=== PATIENT | female | born 1980 | race Caucasian/White ===

== ENCOUNTER 2019-08-26 17:56 | Emergency (ER) | payer OTHER ==
[2019-08-26] MEDS ORDERED: MORPHINE SULFATE 4 MG/ML SYRINGE IV STA (18:38)
[2019-08-26] MEDS ORDERED: SODIUM CHLORIDE 0.9% 1,000 ML IV STA (18:38)
[2019-08-26] MEDS ORDERED: ONDANSETRON 4 MG/2 ML VIAL IVP STA (18:38)
--- NOTE | 2019-08-26 18:38 | ED ---
Recheck HPI - General Chief Complaint: Recheck/Abnormal Lab/Rx Stated Complaint: High BP Time Seen by Provider: 08/26/19 18:17 Source: patient, RN notes reviewed, old records reviewed Mode of arrival: ambulatory Limitations: no limitations - History of Present Illness Initial Comments: This is a 39-year-old female here for evaluation patient very anxious nervous regarding elevated blood pressure headaches concern for stroke and heart attack currently. Patient scheduled for outpatient stress test in 1 week. Otherwise patient has no significant symptoms denies neurological complaint again doesn't headache. She does suffer from headaches admitted for chest pain and elevated blood pressure home. She had surgery blood pressure medication 2 weeks ago. Patient does suffer from high blood pressure and smoking nondiabetic with recent diagnosis of elevated cholesterol MD Complaint: other (Patient did take blood pressure home and it was elevated) -: unknown Returns Today for: persistent/worsening pain related to initial visit, other (Patient very anxious regarding continued elevated blood pressures at home) Symptoms Since Prior Visit: worsening pain (And increased anxiety) Associated Symptoms: chest pain, other (Headache) - Related Data Allergies Allergy/AdvReac Type Severity Reaction Status Date / Time baclofen Allergy Rash/Hives Verified 08/26/19 18:13 doxycycline [From Vibramycin] Allergy Rash/Hives Verified 08/26/19 18:13 latex Allergy Rash/Hives Verified 08/26/19 18:13 metoclopramide [From Reglan] Allergy Rash/Hives Verified 08/26/19 18:13 Sulfa (Sulfonamide Allergy Rash/Hives Verified 08/26/19 18:13 Antibiotics) sumatriptan [From Imitrex] Allergy increases Verified 08/26/19 18:13 blood pressure pennacylin Allergy Rash/Hives Uncoded 08/26/19 18:13 Review of Systems ROS Statement: Those systems with pertinent positive or pertinent negative responses have been documented in the HPI. ROS Other: All systems not noted in ROS Statement are negative. Past Medical History Past Medical History: Fibromyalgia, Hypertension, Osteoarthritis (OA) Additional Past Medical History / Comment(s): migraines, chronic lower back pain History of Any Multi-Drug Resistant Organisms: None Reported Past Surgical History: Appendectomy, Orthopedic Surgery, Tonsillectomy Additional Past Surgical History / Comment(s): sinus surgery. , lt wrist Past Psychological History: Anxiety, Depression Smoking Status: Current every day smoker Past Alcohol Use History: None Reported Past Drug Use History: None Reported General Exam Limitations: no limitations General appearance: alert, in no apparent distress, anxious Head exam: Present: atraumatic, normocephalic, normal inspection Eye exam: Present: normal appearance, PERRL, EOMI. Absent: scleral icterus, conjunctival injection, periorbital swelling ENT exam: Present: normal exam, mucous membranes moist Neck exam: Present: normal inspection. Absent: tenderness, meningismus, lymphadenopathy Respiratory exam: Present: normal lung sounds bilaterally. Absent: respiratory distress, wheezes, rales, rhonchi, stridor Cardiovascular Exam: Present: normal rhythm, tachycardia, normal heart sounds. Absent: systolic murmur, diastolic murmur, rubs, gallop, clicks GI/Abdominal exam: Present: soft, normal bowel sounds. Absent: distended, ten derness, guarding, rebound, rigid Extremities exam: Present: normal inspection, full ROM, normal capillary refill. Absent: tenderness, pedal edema, joint swelling, calf tenderness Back exam: Present: normal inspection Neurological exam: Present: alert, oriented X3, CN II-XII intact Psychiatric exam: Present: normal affect, normal mood Skin exam: Present: warm, dry, intact, normal color. Absent: rash Course Vital Signs 08/26/19 18:07 Temperature 97.8 F Pulse Rate 101 H Respiratory 20 Rate Blood Pressure 156/94 O2 Sat by Pulse 100 Oximetry - Reevaluation(s) Reevaluation #1: 08/26/19 18:38 Medical record is reviewed Reevaluation #2: 08/26/19 20:06 Patient chest pain improved blood pressures improved anxiety is improved Medical Decision Making - Medical Decision Making 39 female to the ER for evaluation patient with us today for evaluation regards to chest pain hypertension and chest pain are improved patient will continue follow-up for outpatient tests stating, "blood pressure control and a stress test which is planned - Lab Data Result diagrams: 08/26/19 19:04 08/26/19 19:04 Lab Results 08/26/19 08/26/19 08/26/19 Range/Units 19:04 19:04 19:04 WBC 11.8 H (3.8-10.6) k/uL RBC 4.94 (3.80-5.40) m/uL Hgb 15.2 (11.4-16.0) gm/dL Hct 45.6 (34.0-46.0) % MCV 92.4 (80.0-100.0) fL MCH 30.8 (25.0-35.0) pg MCHC 33.4 (31.0-37.0) g/dL RDW 12.4 (11.5-15.5) % Plt Count 365 (150-450) k/uL Neutrophils % 61 % Lymphocytes % 32 % Monocytes % 4 % Eosinophils % 1 % Basophils % 1 % Neutrophils # 7.2 (1.3-7.7) k/uL Lymphocytes # 3.8 (1.0-4.8) k/uL Monocytes # 0.5 (0-1.0) k/uL Eosinophils # 0.1 (0-0.7) k/uL Basophils # 0.1 (0-0.2) k/uL PT (9.0-12.0) sec INR (<1.2) APTT (22.0-30.0) sec Sodium 140 (137-145) mmol/L Potassium 3.7 (3.5-5.1) mmol/L Chloride 110 H (98-107) mmol/L Carbon Dioxide 17 L (22-30) mmol/L Anion Gap 13 mmol/L BUN 8 (7-17) mg/dL Creatinine 0.73 (0.52-1.04) mg/dL Est GFR (CKD-EPI)AfAm >90 (>60 ml/min/1.73 sqM) Est GFR (CKD-EPI)NonAf >90 (>60 ml/min/1.73 sqM) Glucose 86 (74-99) mg/dL Calcium 9.8 (8.4-10.2) mg/dL Phosphorus 3.6 (2.5-4.5) mg/dL Magnesium 1.8 (1.6-2.3) mg/dL Total Bilirubin 0.4 (0.2-1.3) mg/dL AST 24 (14-36) U/L ALT 22 (4-34) U/L Alkaline Phosphatase 85 (38-126) U/L Creatine Kinase 51 (30-135) U/L Troponin I (0.000-0.034) ng/mL NT-Pro-B Natriuret Pep 44 pg/mL Total Protein 8.3 H (6.3-8.2) g/dL Albumin 4.9 (3.5-5.0) g/dL Urine Color Urine Appearance (Clear) Urine pH (5.0-8.0) Ur Specific [place] (1.001-1.035) Urine Protein (Negative) Urine Glucose (UA) (Negative) Urine Ketones (Negative) Urine Blood (Negative) Urine Nitrite (Negative) Urine Bilirubin (Negative) Urine Urobilinogen (<2.0) mg/dL Ur Leukocyte Esterase (Negative) Urine RBC (0-5) /hpf Urine WBC (0-5) /hpf Ur Squamous Epith Cells (0-4) /hpf Amorphous Sediment (None) /hpf Urine Bacteria (None) /hpf Urine Mucus (None) /hpf 08/26/19 08/26/19 08/26/19 Range/Units 19:04 19:04 19:04 WBC (3.8-10.6) k/uL RBC (3.80-5.40) m/uL Hgb (11.4-16.0) gm/dL Hct (34.0-46.0) % MCV (80.0-100.0) fL MCH (25.0-35.0) pg MCHC (31.0-37.0) g/dL RDW (11.5-15.5) % Plt Count (150-450) k/uL Neutrophils % % Lymphocytes % % Monocytes % % Eosinophils % % Basophils % % Neutrophils # (1.3-7.7) k/uL Lymphocytes # (1.0-4.8) k/uL Monocytes # (0-1.0) k/uL Eosinophils # (0-0.7) k/uL Basophils # (0-0.2) k/uL PT 10.3 (9.0-12.0) sec INR 1.0 (<1.2) APTT 22.6 (22.0-30.0) sec Sodium (137-145) mmol/L Potassium (3.5-5.1) mmol/L Chloride (98-107) mmol/L Carbon Dioxide (22-30) mmol/L Anion Gap mmol/L BUN (7-17) mg/dL Creatinine (0.52-1.04) mg/dL Est GFR (CKD-EPI)AfAm (>60 ml/min/1.73 sqM) Est GFR (CKD-EPI)NonAf (>60 ml/min/1.73 sqM) Glucose (74-99) mg/dL Calcium (8.4-10.2) mg/dL Phosphorus (2.5-4.5) mg/dL Magnesium (1.6-2.3) mg/dL Total Bilirubin (0.2-1.3) mg/dL AST (14-36) U/L ALT (4-34) U/L Alkaline Phosphatase (38-126) U/L Creatine Kinase (30-135) U/L Troponin I <0.012 (0.000-0.034) ng/mL NT-Pro-B Natriuret Pep pg/mL Total Protein (6.3-8.2) g/dL Albumin (3.5-5.0) g/dL Urine Color Light Yellow Urine Appearance Clear (Clear) Urine pH 5.5 (5.0-8.0) Ur Specific [place] 1.005 (1.001-1.035) Urine Protein Negative (Negative) Urine Glucose (UA) Negative (Negative) Urine Ketones Negative (Negative) Urine Blood Trace H (Negative) Urine Nitrite Negative (Negative) Urine Bilirubin Negative (Negative) Urine Urobilinogen <2.0 (<2.0) mg/dL Ur Leukocyte Esterase Negative (Negative) Urine RBC 2 (0-5) /hpf Urine WBC 1 (0-5) /hpf Ur Squamous Epith Cells 1 (0-4) /hpf Amorphous Sediment Rare H (None) /hpf Urine Bacteria Moderate H (None) /hpf Urine Mucus Rare H (None) /hpf - EKG Data -: EKG Interpreted by Me (EKG shows sinus rhythm rate of 70, VA 112, QRS 82, QTC 436) - Radiology Data Radiology results: report reviewed (CT brain and chest x-ray is negative for acute disease), image reviewed Disposition Clinical Impression: Chest pain, Atypical chest pain, Headache, Hypertension Disposition: HOME SELF-CARE Condition: Good Instructions (If sedation given, give patient instructions): Chest Pain (ED), Hypertension (ED) Is patient prescribed a controlled substance at d/c from ED?: No Referrals: Bhanu Levy MD [Primary Care Provider] - 1-2 days
[2019-08-26 19:16] LABS: Basophils # (A) 0.1 k/uL (0-0.2); Basophils % (A) 1 %; Eosinophils # (A) 0.1 k/uL (0-0.7); Eosinophils % (A) 1 %; HCT 45.6 % (34.0-46.0); HGB 15.2 gm/dL (11.4-16.0); Lymphocytes # (A) 3.8 k/uL (1.0-4.8); Lymphocytes % (A) 32 %; MCH 30.8 pg (25.0-35.0); MCHC 33.4 g/dL (31.0-37.0); MCV 92.4 fL (80.0-100.0); Mean Platelet Volume 7.3; Monocytes # (A) 0.5 k/uL (0-1.0); Monocytes % (A) 4 %; Neutrophils # (A) 7.2 k/uL (1.3-7.7); Neutrophils % (A) 61 %; Platelet Count 365 k/uL (150-450); RBC 4.94 m/uL (3.80-5.40); RDW 12.4 % (11.5-15.5); WBC 11.8 k/uL (3.8-10.6)
[2019-08-26 19:23] LABS: ALT 22 U/L (4-34); AST 24 U/L (14-36); African American GFR (CKD) >90 (>60 ml/min/1.73 sqM); Albumin 4.9 g/dL (3.5-5.0); Alkaline Phosphatase 85 U/L (38-126); Anion Gap 13 mmol/L; Blood Urea Nitrogen 8 mg/dL (7-17); Calcium 9.8 mg/dL (8.4-10.2); Carbon Dioxide 17 mmol/L (22-30); Chloride 110 mmol/L (98-107); Creatine Kinase 51 U/L (30-135); Glucose 86 mg/dL (74-99); Magnesium 1.8 mg/dL (1.6-2.3); Non-African American GFR(CKD) >90 (>60 ml/min/1.73 sqM); Phosphorus 3.6 mg/dL (2.5-4.5); Potassium 3.7 mmol/L (3.5-5.1); Sodium 140 mmol/L (137-145); Total Bilirubin 0.4 mg/dL (0.2-1.3); Total Protein 8.3 g/dL (6.3-8.2)
[2019-08-26 19:26] LABS: Partial Thromboplastin Time 22.6 sec (22.0-30.0); Prothrombin Time 10.3 sec (9.0-12.0)
[2019-08-26 19:27] LABS: Amorphous Sediment,Urine Rare /hpf; Appearance,Urine Clear (Clear); Bacteria,Urine Moderate /hpf; Bilirubin,Urine Negative (Negative); Blood,Urine Trace (Negative); Color,Urine Light Yellow; Glucose,Urine (UA) Negative (Negative); Ketones,Urine Negative (Negative); Leukocyte Esterase,Urine Negative (Negative); Mucus,Urine Rare /hpf; Nitrite,Urine Negative (Negative); PH, Urine 5.5 (5.0-8.0); Protein,Urine Negative (Negative); RBC,Urine 2 /hpf (0-5); Specific Gravity,Urine 1.005 (1.001-1.035); Squamous Epithelial Cell,Urine 1 /hpf (0-4); Urobilinogen,Urine <2.0 mg/dL (<2.0); WBC,Urine 1 /hpf (0-5)
--- NOTE | 2019-08-26 19:28 | CT ---
EXAMINATION TYPE: CT brain wo con DATE OF EXAM: 08/26/2019 COMPARISON: None HISTORY: headache, htn CT DLP: 1099.4 mGycm Automated exposure control for dose reduction was used. Ventricles have normal size. There is no mass effect nor midline shift. There is no sign of intracran ial hemorrhage. Calvarium is intact. IMPRESSION: Negative head CT scan.
--- NOTE | 2019-08-26 19:29 | XR ---
EXAMINATION TYPE: XR chest 2V DATE OF EXAM: 08/26/2019 COMPARISON: NONE HISTORY: Weakness TECHNIQUE: 2 views FINDINGS: Heart and mediastinum are normal. Lungs are clear. Diaphragm is normal. Bony thorax appears normal. IMPRESSION: Normal chest. Normal heart.
[2019-08-26 20:25] VITALS: BP 121/80; PULSE 77; RESP 18; TEMP 98.2
== END 2019-08-26 20:24 | disposition home or self-care (01) ==
LOC: EC 17:56
DX: I10 Essential (primary) hypertension (principal); R07.89 Other chest pain; R51 Headache; F41.9 Anxiety disorder, unspecified; E78.00 Pure hypercholesterolemia, unspecified; F17.200 Nicotine dependence, unspecified, uncomplicated; Z91.040 Latex allergy status; Z88.2 Allergy status to sulfonamides; Z88.8 Allergy status to other drugs, medicaments and biological substances; Z88.1 Allergy status to other antibiotic agents; Z88.0 Allergy status to penicillin
CPT/HCPCS: 36415; 93005; 83880; 80053; 82550; 83735; 84100; 84484; 85025; 85610; 85730; 81001; 71046; 70450; 99284; 96374; 96375; 96361; J2270; J2405

== ENCOUNTER 2019-09-29 19:47 | Emergency (ER) | payer OTHER ==
[2019-09-29 19:53] VITALS: TEMP 98.1
[2019-09-29] MEDS ORDERED: KETOROLAC 30 MG/ML 1 ML VIAL IVP STA (21:11)
[2019-09-29] MEDS ORDERED: PHENAZOPYRIDINE 200 MG TAB PO STA (21:11)
[2019-09-29] MEDS ORDERED: SODIUM CHLORIDE 0.9% 1,000 ML IV STA (21:11)
[2019-09-29 21:46] LABS: Basophils # (A) 0.1 k/uL (0-0.2); Basophils % (A) 1 %; Eosinophils # (A) 0.1 k/uL (0-0.7); Eosinophils % (A) 1 %; HCT 40.2 % (34.0-46.0); HGB 13.3 gm/dL (11.4-16.0); Lymphocytes # (A) 3.3 k/uL (1.0-4.8); Lymphocytes % (A) 29 %; MCH 30.7 pg (25.0-35.0); MCHC 33.1 g/dL (31.0-37.0); MCV 92.6 fL (80.0-100.0); Mean Platelet Volume 7.5; Monocytes # (A) 0.6 k/uL (0-1.0); Monocytes % (A) 5 %; Neutrophils % (A) 62 %; Platelet Count 323 k/uL (150-450); RBC 4.34 m/uL (3.80-5.40); RDW 12.6 % (11.5-15.5); WBC 11.3 k/uL (3.8-10.6)
[2019-09-29 21:48] LABS: Appearance,Urine Clear (Clear); Bacteria,Urine Occasional /hpf; Bilirubin,Urine Negative (Negative); Blood,Urine Small (Negative); Color,Urine Yellow; Glucose,Urine (UA) Negative (Negative); Hyaline Casts,Urine 1 /lpf (0-2); Ketones,Urine Negative (Negative); Leukocyte Esterase,Urine Negative (Negative); Nitrite,Urine Negative (Negative); Protein,Urine Negative (Negative); RBC,Urine 3 /hpf (0-5); Specific Gravity,Urine 1.015 (1.001-1.035); Urobilinogen,Urine <2.0 mg/dL (<2.0); WBC,Urine 1 /hpf (0-5)
--- NOTE | 2019-09-29 21:53 | XR ---
EXAMINATION TYPE: XR KUB DATE OF EXAM: 09/29/2019 9:47 PM CLINICAL HISTORY: Right flank pain. TECHNIQUE: Two Upright KUB images of the abdomen are obtained. COMPARISON: None. FINDINGS: Scattered gas is seen in non-distended stomach and small bowel loops. Gas and fecal materia l is seen in non-distended colon. There is no visceromegaly, pneumoperitoneum, or abnormal calcificat ion appreciated. The lung bases are clear and the osseous structures are intact. IMPRESSION: Overall nonobstructive bowel gas pattern. No definitive nephrolithiasis.
[2019-09-29 21:59] LABS: ALT 14 U/L (4-34); AST 19 U/L (14-36); African American GFR (CKD) >90 (>60 ml/min/1.73 sqM); Albumin 4.1 g/dL (3.5-5.0); Alkaline Phosphatase 67 U/L (38-126); Amylase 63 U/L (30-110); Anion Gap 7 mmol/L; Blood Urea Nitrogen 14 mg/dL (7-17); Calcium 8.7 mg/dL (8.4-10.2); Carbon Dioxide 22 mmol/L (22-30); Chloride 109 mmol/L (98-107); Glucose 86 mg/dL (74-99); Non-African American GFR(CKD) >90 (>60 ml/min/1.73 sqM); Potassium 3.8 mmol/L (3.5-5.1); Sodium 138 mmol/L (137-145); Total Bilirubin 0.3 mg/dL (0.2-1.3); Total Protein 7.1 g/dL (6.3-8.2)
[2019-09-29] MEDS ORDERED: HYDROmorphone 0.5 MG/0.5 ML SYRINGE IVP STA (22:22)
[2019-09-29] MEDS ORDERED: ONDANSETRON 4 MG/2 ML VIAL IVP STA (22:22)
--- NOTE | 2019-09-29 23:09 | CT ---
EXAMINATION TYPE: CT abdomen pelvis wo con DATE OF EXAM: 09/29/2019 COMPARISON: None HISTORY: flank and pelvic pain CT DLP: 494 mGycm Automated exposure control for dose reduction was used. Multiple axial sections were obtained from the diaphragm to the floor the pelvis without contrast. Lung bases are clear. There is no pleural effusion. Heart size is normal. There is no pericardial eff usion. Stomach is intact. Liver spleen pancreas gallbladder appear normal. Bile ducts are not dilated. There is no adrenal mass. Kidneys have normal size. There is no evidence of a renal mass. I see no re nal calculus. There is minimal fullness of the right renal pelvis compared to the left. I see no sign of a ureteral calculus. Bladder distends smoothly. There is no inguinal hernia. There is no free flu id in the pelvis. There is no mesenteric edema. There is no ascites or free air. There are apparent multiple surgical c lips in the right lower quadrant from appendectomy. Appendix not seen. There is no evidence of a bowel obstruction. Uterus is anteverted. Lumbar vertebra have normal alignm ent. Posterior elements are intact. There is no compression fracture. Bony pelvis is intact. IMPRESSION: Right renal pelvis slightly larger than the left. No convincing evidence of a ureteral obstruction. N o renal calculus or ureteral identified. No sign of acute abdomen and pelvis.
--- NOTE | 2019-09-29 23:15 | ED ---
Abdominal Pain HPI - General Chief Complaint: Abdominal Pain Stated Complaint: pelvic pain Time Seen by Provider: 09/29/19 20:50 Source: patient Mode of arrival: ambulatory Limitations: no limitations - History of Present Illness Initial Comments: 39-year-old female patient presents to the emergency department today for evaluation of right flank pain and suprapubic discomfort. Patient states symptoms have been present for the last couple of days. Patient states she feels like razor blades or stabbing her in her left pelvic region. She denies any abnormal vaginal bleeding or discharge. Denies any hematuria, dysuria, urinary frequency, urinary urgency. Denies fever or chills. Patient states that she has been told she had kidney stones in the past but never had any imaging to confirm. Patient denies taking any medication for her symptoms to day. Denies any constipation or diarrhea. Patient denies concern for sexually transmitted infections. Patient denies any recent rash, shortness breath, chest pain, numbness, tingling, dizziness, weakness, headache, visual changes, or any other complaints. - Related Data Previous Rx's Medication Instructions Recorded Ibuprofen [Motrin] 600 mg PO Q8HR PRN #30 tab 09/29/19 Tamsulosin HCl [Flomax] 0.4 mg PO DAILY #7 cap 09/29/19 Allergies Allergy/AdvReac Type Severity Reaction Status Date / Time baclofen Allergy Rash/Hives Verified 09/29/19 19:55 clarithromycin [From Biaxin] Allergy Rash/Hives Verified 09/29/19 19:55 doxycycline [From Vibramycin] Allergy Rash/Hives Verified 09/29/19 19:55 latex Allergy Rash/Hives Verified 09/29/19 19:55 levofloxacin [From Levaquin] Allergy Rash/Hives Verified 09/29/19 19:55 metoclopramide [From Reglan] Allergy Rash/Hives Verified 09/29/19 19:55 nalbuphine [From Nubain] Allergy Unknown Verified 09/29/19 19:55 Penicillins Allergy Rash/Hives Verified 09/29/19 19:55 Sulfa (Sulfonamide Allergy Rash/Hives Verified 09/29/19 19:55 Antibiotics) sumatriptan [From Imitrex] Allergy increases Verified 09/29/19 19:55 blood pressure Review of Systems ROS Statement: Those systems with pertinent positive or pertinent negative responses have been documented in the HPI. ROS Other: All systems not noted in ROS Statement are negative. Past Medical History Past Medical History: Fibromyalgia, Hypertension, Osteoarthritis (OA) Additional Past Medical History / Comment(s): migraines, chronic lower back pain History of Any Multi-Drug Resistant Organisms: None Reported Past Surgical History: Appendectomy, Orthopedic Surgery, Tonsillectomy Additional Past Surgical History / Comment(s): sinus surgery, lt wrist, vulvadectomy Past Psychological History: Anxiety, Depression Smoking Status: Current every day smoker Past Alcohol Use History: None Reported Past Drug Use History: None Reported General Exam Limitations: no limitations General appearance: alert, in no apparent distress, other (This is a well- developed, well-nourished adult female patient in no acute distress. Vital signs upon presentation are temperature 98.1F, pulse 92, respirations 18, blood pressure 132/84, pulse ox 98% on room air.) Eye exam: Present: normal appearance, PERRL, EOMI. Absent: scleral icterus, conjunctival injection, periorbital swelling ENT exam: Present: normal exam, normal oropharynx, mucous membranes moist Respiratory exam: Present: normal lung sounds bilaterally. Absent: respiratory distress, wheezes, rales, rhonchi, stridor Cardiovascular Exam: Present: regular rate, normal rhythm, normal heart sounds. Absent: systolic murmur, diastolic murmur, rubs, gallop, clicks GI/Abdominal exam: Present: soft, tenderness (Suprapubic), normal bowel sounds. Absent: distended, guarding, rebound, rigid Neurological exam: Present: alert, oriented X3, CN II-XII intact Psychiatric exam: Present: normal affect, normal mood Skin exam: Present: warm, dry, intact, normal color. Absent: rash Course Vital Signs 09/29/19 09/29/19 19:50 23:55 Temperature 98.1 F 98.1 F Pulse Rate 92 62 Respiratory 18 16 Rate Blood Pressure 132/84 120/75 O2 Sat by Pulse 98 96 Oximetry Medical Decision Making - Medical Decision Making 39-year-old female patient presented to the emergency department today for evaluation of right flank pain and suprapubic discomfort. Physical examination did reveal right CVA tenderness and suprapubic tenderness. Labs reviewed and d id reveal small amount of blood in the urine. CT abdomen and pelvis was obtained without contrast. There was evidence or fullness of the right renal pelvis but no sign of obstructing stone. I did discuss findings and results with the patient. Symptoms could be related to recently passed stone. There is no sign of urinary tract infection. She denies concerns for sexually transmitted infections and declines testing. She'll be discharged to follow-up with her primary care physician for recheck in 1-2 days. We will do Flomax and ibuprofen. Return parameters were discussed in detail. She verbalizes understanding and agrees with this plan. - Lab Data Result diagrams: 09/29/19 21:34 09/29/19 21:34 Lab Results 09/29/19 09/29/19 09/29/19 Range/Units 21:34 21:34 21:34 WBC 11.3 H (3.8-10.6) k/uL RBC 4.34 (3.80-5.40) m/uL Hgb 13.3 (11.4-16.0) gm/dL Hct 40.2 (34.0-46.0) % MCV 92.6 (80.0-100.0) fL MCH 30.7 (25.0-35.0) pg MCHC 33.1 (31.0-37.0) g/dL RDW 12.6 (11.5-15.5) % Plt Count 323 (150-450) k/uL Neutrophils % 62 % Lymphocytes % 29 % Monocytes % 5 % Eosinophils % 1 % Basophils % 1 % Neutrophils # 7.0 (1.3-7.7) k/uL Lymphocytes # 3.3 (1.0-4.8) k/uL Monocytes # 0.6 (0-1.0) k/uL Eosinophils # 0.1 (0-0.7) k/uL Basophils # 0.1 (0-0.2) k/uL Sodium 138 (137-145) mmol/L Potassium 3.8 (3.5-5.1) mmol/L Chloride 109 H (98-107) mmol/L Carbon Dioxide 22 (22-30) mmol/L Anion Gap 7 mmol/L BUN 14 (7-17) mg/dL Creatinine 0.71 (0.52-1.04) mg/dL Est GFR (CKD-EPI)AfAm >90 (>60 ml/min/1.73 sqM) Est GFR (CKD-EPI)NonAf >90 (>60 ml/min/1.73 sqM) Glucose 86 (74-99) mg/dL Calcium 8.7 (8.4-10.2) mg/dL Total Bilirubin 0.3 (0.2-1.3) mg/dL AST 19 (14-36) U/L ALT 14 (4-34) U/L Alkaline Phosphatase 67 (38-126) U/L Total Protein 7.1 (6.3-8.2) g/dL Albumin 4.1 (3.5-5.0) g/dL Amylase 63 (30-110) U/L Lipase 232 (23-300) U/L Urine Color Yellow Urine Appearance Clear (Clear) Urine pH 6.0 (5.0-8.0) Ur Specific [place] 1.015 (1.001-1.035) Urine Protein Negative (Negative) Urine Glucose (UA) Negative (Negative) Urine Ketones Negative (Negative) Urine Blood Small H (Negative) Urine Nitrite Negative (Negative) Urine Bilirubin Negative (Negative) Urine Urobilinogen <2.0 (<2.0) mg/dL Ur Leukocyte Esterase Negative (Negative) Urine RBC 3 (0-5) /hpf Urine WBC 1 (0-5) /hpf Urine Bacteria Occasional H (None) /hpf Hyaline Casts 1 (0-2) /lpf - Radiology Data Radiology results: report reviewed, image reviewed CT abdomen and pelvis without contrast was obtained. Report was reviewed in its entirety. Impression by Dr. Bruce shows right renal pelvis slightly larger than the left. No convincing evidence of ureteral instruction. No renal calculus or ureteral identified. No sign of acute abdomen and pelvis. Disposition Clinical Impression: Flank pain Disposition: HOME SELF-CARE Condition: Good Instructions (If sedation given, give patient instructions): Flank Pain (ED) Additional Instructions: Increase fluids. Rest. Take medications as directed. Follow-up with the primary care physician for recheck in 1-2 days. Return to the emergency departm ent immediately for any new, worsening, or concerning symptoms. Prescriptions: Tamsulosin HCl [Flomax] 0.4 mg PO DAILY #7 cap Ibuprofen [Motrin] 600 mg PO Q8HR PRN #30 tab PRN Reason: Pain Is patient prescribed a controlled substance at d/c from ED?: No Referrals: Bhanu Levy MD [Primary Care Provider] - 1-2 days Time of Disposition: 23:14
[2019-09-29] MEDS ORDERED: HYDROmorphone 1 MG/ML 1 ML SYRINGE IVP STA (23:20)
[2019-09-29 23:56] VITALS: BP 120/75; PULSE 62; RESP 16
== END 2019-09-29 23:56 | disposition home or self-care (01) ==
LOC: EC 19:47
DX: R10.2 Pelvic and perineal pain (principal); R31.9 Hematuria, unspecified; F17.200 Nicotine dependence, unspecified, uncomplicated; Z88.0 Allergy status to penicillin; Z88.1 Allergy status to other antibiotic agents; Z88.2 Allergy status to sulfonamides; Z88.5 Allergy status to narcotic agent; Z88.8 Allergy status to other drugs, medicaments and biological substances; Z91.040 Latex allergy status; Z90.49 Acquired absence of other specified parts of digestive tract; Z53.29 Procedure and treatment not carried out because of patient's decision for other reasons
CPT/HCPCS: 36415; 80053; 82150; 83690; 85025; 81001; 74018; 74176; 99284; 96374; 96375 ×2; 96376; 96361 ×2; J2405; J1885; J1170 ×2

== ENCOUNTER → 2019-10-03 | Outpatient (CLI) | payer OTHER ==
--- NOTE | 2019-10-03 16:42 | XR ---
Lumbar spine HISTORY: Back pain 3 views of the lumbar spine Lumbar vertebral bodies show preserved height, alignment, and bone mineralization. Disc spaces are ma intained. No paraspinal mass. Atherosclerotic vascular calcification present within the distribution of the aorta. IMPRESSION: No abnormality is evident.
--- NOTE | 2019-10-03 16:44 | XR ---
Cervical spine HISTORY: Pain 5 views of the cervical spine There is no evident foraminal encroachment. Rudimentary cervical ribs are present. Cervical vertebral bodies show preserved height, alignment, and bone mineralization. Mild spondylosis present at C6-7 w ith associated loss of disc height. Prevertebral soft tissues are normal. IMPRESSION: Mild degenerative disc disease.
== END | disposition home or self-care (01) ==
LOC: RAD 15:12
PROVIDERS: ATTEND Internal Medicine
DX: M50.30 Other cervical disc degeneration, unspecified cervical region (principal); M54.5 Low back pain
CPT/HCPCS: 72050; 72100

== ENCOUNTER → 2020-01-28 | Outpatient (CLI) | payer OTHER ==
[2020-01-28 15:32] LABS: Basophils # (A) 0.1 k/uL (0-0.2); Basophils % (A) 1 %; Eosinophils # (A) 0.1 k/uL (0-0.7); Eosinophils % (A) 1 %; HCT 47.6 % (34.0-46.0); HGB 15.1 gm/dL (11.4-16.0); Lymphocytes # (A) 2.9 k/uL (1.0-4.8); Lymphocytes % (A) 31 %; MCHC 31.8 g/dL (31.0-37.0); MCV 94.6 fL (80.0-100.0); Monocytes # (A) 0.7 k/uL (0-1.0); Monocytes % (A) 8 %; Neutrophils # (A) 5.3 k/uL (1.3-7.7); Neutrophils % (A) 58 %; Platelet Count 336 k/uL (150-450); RBC 5.04 m/uL (3.80-5.40); RDW 12.8 % (11.5-15.5); WBC 9.2 k/uL (3.8-10.6)
== END | disposition home or self-care (01) ==
LOC: LABPAT 13:57
PROVIDERS: ATTEND Obstetrics & Gynecology
DX: Z01.818 Encounter for other preprocedural examination (principal)
CPT/HCPCS: 36415; 85025

== ENCOUNTER 2020-01-30 06:18 | Day surgery (SDC) | payer OTHER ==
[2020-01-27 14:45] VITALS: BMI 29.2
--- NOTE | 2020-01-29 17:06 | P.HPOB ---
History of Present Illness H&P Date: 01/29/20 Chief Complaint: Family planning Kyra is a 40-year-old female who has completed her family planning and desires permanent sterilization. Risks/benefits/alternatives to a laparoscopic tubal occlusion were reviewed with the patient in detail and all questions were answered for her prior to proceeding to the operating room. Risks did include but were not limited to damage to bladder, bowel, vascular injuries, nerve injuries, bleeding, and infection. She would like no clips therefore we are using the Kleppinger for her tubal ligation. All the questions are answered at this time. Past Medical History Past Medical History: Fibromyalgia, Hypertension, Osteoarthritis (OA) Additional Past Medical History / Comment(s): migraines, chronic lower back pain History of Any Multi-Drug Resistant Organisms: None Reported Past Surgical History: Appendectomy, Orthopedic Surgery, Tonsillectomy Additional Past Surgical History / Comment(s): sinus surgery, lt wrist SX, vulvadectomy Past Anesthesia/Blood Transfusion Reactions: No Reported Reaction Smoking Status: Current every day smoker - Past Family History Mother Family Medical History: No Reported History Medications and Allergies Home Medications Medication Instructions Recorded Confirmed Type Ibuprofen [Motrin] 600 mg PO Q8HR PRN #30 tab 09/29/19 01/27/20 Rx Cholecalciferol (Vitamin D3) 10,000 unit PO DAILY 01/27/20 01/27/20 History [Vitamin D3] Losartan Potassium 100 mg PO HS 01/27/20 01/27/20 History Verapamil HCl [Verapamil ER] 180 mg PO DAILY 01/27/20 01/27/20 History tiZANidine [Zanaflex] 4 mg PO TID 01/27/20 01/27/20 History Allergies Allergy/AdvReac Type Severity Reaction Status Date / Time baclofen Allergy Rash/Hives Verified 01/27/20 14:31 clarithromycin [From Biaxin] Allergy Rash/Hives Verified 01/27/20 14:31 doxycycline [From Vibramycin] Allergy Rash/Hives Verified 01/27/20 14:31 latex Allergy Rash/Hives Verified 01/27/20 14:31 levofloxacin [From Levaquin] Allergy Rash/Hives Verified 01/27/20 14:31 metoclopramide [From Reglan] Allergy Rash/Hives Verified 01/27/20 14:31 nalbuphine [From Nubain] Allergy Unknown Verified 01/27/20 14:31 Penicillins Allergy Rash/Hives Verified 01/27/20 14:31 Sulfa (Sulfonamide Allergy Rash/Hives Verified 01/27/20 14:31 Antibiotics) sumatriptan [From Imitrex] Allergy increases Verified 01/27/20 14:31 blood pressure Exam Osteopathic Statement: *. No significant issues noted on an osteopathic structural exam other than those noted in the History and Physical/Consult. - OBG Physical Exam Breast: both: normal (no masses) Abdomen: bowel sounds normal, no diffuse tenderness, no bruit present, no guarding noted, no hepatomegaly, no splenomegaly, no mass Vulva: both: normal Vagina: normal moisture, no discharge Cervix: no lesion, no discharge Uterus: normal size, normal contour Adnexa: both: normal Anus/Rectum: normal perianal skin, no rectal mass, no hemorrhoids, heme negative
[~2020-01-30 06:18] MED LIST: DEXAMETHASONE SOD PHOSPHATE 10 MG/ML 1 ML VIAL IV ONE; LACTATED RINGERS 1,000 ML IV SCH; LIDOCAINE 1% (10MG/ML) FOR IV START INTRADERMA PRN; MIDAZOLAM 2 MG/2 ML VIAL IV PRN; ONDANSETRON 4 MG/2 ML VIAL IVP ONE; Pre Op ABX Message 1 EACH MISC MISCELLANE ONE
[2020-01-30] MEDS ORDERED: ONDANSETRON 4 MG/2 ML VIAL ONE (06:42)
[2020-01-30] MEDS ORDERED: NEOSTIGMINE 1 MG/ML 10 ML VIAL ONE (07:31)
[2020-01-30] MEDS ORDERED: PROPOFOL 10 MG/ML 20 ML VIAL IV ONE (07:31)
[2020-01-30] MEDS ORDERED: ROCURONIUM BROMIDE 10 MG/ML 5 ML VIAL IV ONE (07:31)
[2020-01-30] MEDS ORDERED: KETOROLAC 30 MG/ML 1 ML VIAL ONE (07:31)
[2020-01-30] MEDS ORDERED: LIDOCAINE 1% INJ 10MG/ML (20 ML MDV) ONE (07:31)
[2020-01-30] MEDS ORDERED: fentaNYL (PF) 50 MCG/ML 2 ML AMP ONE (07:31)
[2020-01-30] MEDS ORDERED: GLYCOPYRROLATE 0.2 MG/ML 2 ML VIAL ONE (07:31)
[2020-01-30] MEDS ORDERED: SUCCINYLCHOLINE CHLORIDE 100 MG/5 ML SYR IV ONE (07:31)
[2020-01-30] MEDS ORDERED: MIDAZOLAM 2 MG/2 ML VIAL ONE (07:31)
[2020-01-30] MEDS ORDERED: BUPIVACAINE (PF) 0.25% 30 ML VIAL SQ ONE (07:56)
--- NOTE | 2020-01-30 08:12 | P.OP ---
Date of Procedure: 01/30/20 Preoperative Diagnosis: Family planning Postoperative Diagnosis: Same Procedure(s) Performed: Laparoscopic tubal occlusion with Kleppinger Anesthesia: DAMARIS Surgeon: Misha Cummings Estimated Blood Loss (ml): 5 IV fluids (ml): 600 Urine output (ml): 75 Pathology: none sent Condition: stable Disposition: same day Operative Findings: Normal pelvic anatomy. Small lesion in right labia had resolved and no biopsy was performed Description of Procedure: Patient was taken to the operating suite where general anesthetic was found be adequate. She was prepped and draped in normal sterile fashion and placed in dorsal lithotomy position. Initially a speculum was inserted the vagina and anterior lip of the cervix was identified and grasped with single-tooth tenaculum. Uterus was then sounded to 9 cm and a uterine manipulator was inserted without difficulty. Other incidents were then removed and a straight catheter was used to drain the bladder urine. This was then removed and attention was turned to the abdominal portion procedure where Wells were changed and then 2 mL a course of Marcaine was injected periumbilically. Through this injected anesthetic a 5 mm skin incision was made and through this incision, under direct visualization, the camera and sleeve were inserted. Once peritoneal placement was assured gas was allowed to fully insufflate the abdomen and patient's placement steep Trendelenburg position. A second 8 mm skin incision was then made 3 cm above the pubic symphysis in the midline. Through this incision a second port and sleeve were inserted again under direct visualization. Once this was accomplished observations pelvis were noted. Uterus was then elevated and Kleppinger was used to first grasp the right fallopian tube and it was cauterized in [address] approximately 1/2 inch apart with the electricity applied until change of tone on the device. In a similar fashion the left tube was occluded. Once this was completed with no bleeding noted in the mesosalpinx incidents removed and gas allowed to expel from the abdomen. 5 deep breaths were provided during this process area instruments were then removed and trochars removed and then 4-0 Vicryl used to close incision subcuticularly. The remaining Marcaine was then injected around these incisions and instrument from was removed from the vagina sponge, lap, needle counts were all correct 2. Patient was then taken to the recovery room in stable and satisfactory condition. Plan - Discharge Summary Discharge Rx Participant: No New Discharge Prescriptions: New Ibuprofen [Motrin] 600 mg PO Q6HR PRN #30 tab PRN Reason: Pain HYDROcodone/APAP 5-325MG [[place] 5-325] 1 tab PO Q4HR PRN #30 tab PRN Reason: Pain No Action Ibuprofen [Motrin] 600 mg PO Q8HR PRN #30 tab PRN Reason: Pain tiZANidine [Zanaflex] 4 mg PO TID Verapamil HCl [Verapamil ER] 180 mg PO DAILY Losartan Potassium 100 mg PO HS Cholecalciferol (Vitamin D3) [Vitamin D3] 10,000 unit PO DAILY Discharge Medication List Ibuprofen [Motrin] 600 mg PO Q8HR PRN #30 tab 09/29/19 [Rx] Cholecalciferol (Vitamin D3) [Vitamin D3] 10,000 unit PO DAILY 01/27/20 [History] Losartan Potassium 100 mg PO HS 01/27/20 [History] Verapamil HCl [Verapamil ER] 180 mg PO DAILY 01/27/20 [History] tiZANidine [Zanaflex] 4 mg PO TID 01/27/20 [History] HYDROcodone/APAP 5-325MG [[place] 5-325] 1 tab PO Q4HR PRN #30 tab 01/30/20 [Rx] Ibuprofen [Motrin] 600 mg PO Q6HR PRN #30 tab 01/30/20 [Rx] Follow up Appointment(s)/Referral(s): Misha Cummings DO [Doctor of Osteopathic Medicine] - 1 Week Activity/Diet/Wound Care/Special Instructions: No heavy lifting, limit stairs and driving, pelvic rest. If any high temperatures, heavy bleeding, or severe pain call my office
[2020-01-30] MEDS: HYDROmorphone 0.5 MG/0.5 ML SYRINGE IVP PRN ×4 (08:21→08:45)
[2020-01-30 08:52] VITALS: RESP 16
[2020-01-30] MEDS: fentaNYL (PF) 50 MCG/ML 2 ML AMP IV PRN ×3 (08:52→09:08)
[2020-01-30 10:38] VITALS: BP 109/73; PULSE 61; TEMP 97.7
== END 2020-01-30 10:35 | disposition home or self-care (01) ==
LOC: OR 06:18
PROVIDERS: ATTEND Obstetrics & Gynecology
DX: Z30.2 Encounter for sterilization (principal); N90.89 Other specified noninflammatory disorders of vulva and perineum; I10 Essential (primary) hypertension; M79.7 Fibromyalgia; M19.90 Unspecified osteoarthritis, unspecified site; G43.909 Migraine, unspecified, not intractable, without status migrainosus; F17.200 Nicotine dependence, unspecified, uncomplicated; Z90.49 Acquired absence of other specified parts of digestive tract; Z90.89 Acquired absence of other organs; Z98.890 Other specified postprocedural states; Z79.1 Long term (current) use of non-steroidal anti-inflammatories (NSAID); Z79.899 Other long term (current) drug therapy; Z88.6 Allergy status to analgesic agent; Z88.1 Allergy status to other antibiotic agents; Z91.040 Latex allergy status; Z88.0 Allergy status to penicillin; Z88.2 Allergy status to sulfonamides; Z88.8 Allergy status to other drugs, medicaments and biological substances; Z88.5 Allergy status to narcotic agent; Z79.891 Long term (current) use of opiate analgesic
CPT/HCPCS: 81025; 58670; J2250; J1100; J2710; J2405; J2001; J3010; J1885; J0330; J2704; J1170

== ENCOUNTER → 2020-03-16 | Outpatient (CLI) | payer OTHER ==
--- NOTE | 2020-03-16 09:47 | US ---
EXAMINATION TYPE: US abdomen complete DATE OF EXAM: 03/16/2020 COMPARISON: CT CLINICAL HISTORY: R11.2 Nausea and vomiting. N&V EXAM MEASUREMENTS: Liver Length: 14.4 cm Gallbladder Wall: 0.2 cm CBD: 0.5 cm Spleen: 9.4 cm Right Kidney: 10.2 x 3.7 x 4.3 cm Left Kidney: 10.1 x 4.9 x 4.5 cm Pancreas: wnl, lower pole gassed out Liver: wnl Gallbladder: wnl Evidence for sonographic Garza's sign: No CBD: wnl Spleen: wnl Right Kidney: wnl Left Kidney: wnl Upper IVC: wnl Abd Aorta: wnl No abnormality visualized to account for pt's symptoms The liver is homogenous. The intrahepatic portion of the IVC and proximal abdominal aorta are within normal limits. There is no evidence of cholelithiasis. Common bile duct is unremarkable. The visu alized portions of the pancreas are homogenous. The spleen is unremarkable. Kidneys are symmetric a nd free of hydronephrosis. No renal lesions are seen. IMPRESSION: No distinct abnormality seen.
== END | disposition home or self-care (01) ==
LOC: RADUSWWP 08:33
PROVIDERS: ATTEND Internal Medicine
DX: R11.2 Nausea with vomiting, unspecified (principal)
CPT/HCPCS: 76700

== ENCOUNTER → 2020-11-01 | Outpatient (CLI) | payer OTHER ==
--- NOTE | 2020-11-01 14:33 | US ---
EXAMINATION TYPE: US kidneys/renal and bladder DATE OF EXAM: 11/01/2020 COMPARISON: CT September 29, 2019 CLINICAL HISTORY: R10.9 Right flank pain. right flank pain EXAM MEASUREMENTS: Right Kidney: 10.9 x 3.8 x 4.5cm Left Kidney: 10.4 x 4.5 x 4.3cm Right Kidney: no evidence of hydronephrosis Left Kidney: no evidence of hydronephrosis Bladder: appears wnl Bilateral Jets seen: no There is no evidence for hydronephrosis at this point in time. No shadowing nephrolithiasis is seen. No masses are identified and images saved. The urinary bladder is satisfactorily distended. Bilat eral ureteral jets are seen. IMPRESSION: Unremarkable study. No hydronephrosis noted currently.
== END | disposition home or self-care (01) ==
LOC: RADUSWWP 12:55
PROVIDERS: ATTEND Internal Medicine
DX: R10.9 Unspecified abdominal pain (principal)
CPT/HCPCS: 76770

== ENCOUNTER 2020-11-14 21:33 | Emergency (ER) | payer OTHER ==
[2020-11-14 21:38] VITALS: TEMP 98.4
[2020-11-14 21:55] VITALS: RESP 18
[2020-11-14 22:04] LABS: Appearance,Urine Clear (Clear); Bacteria,Urine Moderate /hpf; Bilirubin,Urine Negative (Negative); Blood,Urine Moderate (Negative); Color,Urine Yellow; Glucose,Urine (UA) Negative (Negative); Ketones,Urine Negative (Negative); Leukocyte Esterase,Urine Small (Negative); Mucus,Urine Rare /hpf; Nitrite,Urine Negative (Negative); PH, Urine 5.5 (5.0-8.0); Protein,Urine Negative (Negative); RBC,Urine 8 /hpf (0-5); Specific Gravity,Urine 1.023 (1.001-1.035); Squamous Epithelial Cell,Urine 8 /hpf (0-4); Urobilinogen,Urine <2.0 mg/dL (<2.0); WBC,Urine 1 /hpf (0-5)
[2020-11-14] MEDS ORDERED: KETOROLAC 15 MG/ML 1 ML VIAL IVP STA (22:05)
[2020-11-14] MEDS ORDERED: MORPHINE SULFATE 4 MG/ML SYRINGE IV STA (22:05)
[2020-11-14] MEDS ORDERED: SODIUM CHLORIDE 0.9% 1,000 ML IV STA ×2 (22:05)
--- NOTE | 2020-11-14 22:39 | CT ---
EXAMINATION TYPE: CT abdomen pelvis wo con DATE OF EXAM: 11/14/2020 COMPARISON: 09/29/2019 HISTORY: right flank pain CT DLP: 523.8 mGycm Automated exposure control for dose reduction was used. Images obtained from the diaphragm to the floor the pelvis without contrast. Lung bases are clear. There is no pleural effusion. Heart size is normal. There is no pericardial eff usion. Liver spleen stomach pancreas gallbladder appear normal. The bile ducts are not dilated. There is no adrenal mass. Kidneys have normal size and contour. I see no hydronephrosis. Ureters are not dilated. There is no evidence of a ureteral calculus. There is no retroperitoneal adenopathy. Jones dder distends smoothly. There is no inguinal hernia. Uterus is anteverted. There is no pelvic mass. T here is no free fluid in the pelvis. There are surgical clips apparently from appendectomy. Terminal ileum appears normal. There is no mesenteric edema. There is no ascites or free air. There i s no bowel obstruction. Fecal pattern is fairly normal. Lumbar vertebra have normal alignment. There is no compression fracture. Posterior elements are intac t. The bony pelvis is intact. Hip joints are intact. IMPRESSION: No evidence of renal stone or obstruction. Previous surgery. No evidence of acute abdomen and pelvis.
[2020-11-14 22:54] LABS: Basophils # (A) 0.1 k/uL (0-0.2); Basophils % (A) 1 %; Eosinophils # (A) 0.2 k/uL (0-0.7); Eosinophils % (A) 2 %; HCT 42.2 % (34.0-46.0); HGB 14.4 gm/dL (11.4-16.0); Lymphocytes # (A) 3.9 k/uL (1.0-4.8); Lymphocytes % (A) 38 %; MCH 31.9 pg (25.0-35.0); MCV 93.8 fL (80.0-100.0); Monocytes # (A) 0.6 k/uL (0-1.0); Monocytes % (A) 6 %; Neutrophils # (A) 5.4 k/uL (1.3-7.7); Neutrophils % (A) 52 %; Platelet Count 265 k/uL (150-450); RDW 12.6 % (11.5-15.5); WBC 10.3 k/uL (3.8-10.6)
[2020-11-14 22:57] LABS: ALT 26 U/L (4-34); AST 29 U/L (14-36); African American GFR (CKD) >90 (>60 ml/min/1.73 sqM); Alkaline Phosphatase 76 U/L (38-126); Amylase 58 U/L (30-110); Anion Gap 9 mmol/L; Blood Urea Nitrogen 19 mg/dL (7-17); Calcium 9.3 mg/dL (8.4-10.2); Carbon Dioxide 21 mmol/L (22-30); Chloride 107 mmol/L (98-107); Glucose 87 mg/dL (74-99); Lipase 52 U/L (23-300); Non-African American GFR(CKD) >90 (>60 ml/min/1.73 sqM); Potassium 4.5 mmol/L (3.5-5.1); Sodium 137 mmol/L (137-145); Total Bilirubin 0.3 mg/dL (0.2-1.3); Total Protein 6.9 g/dL (6.3-8.2)
--- NOTE | 2020-11-14 23:07 | ED ---
Abdominal Pain HPI - General Chief Complaint: Back Pain/Injury Stated Complaint: Abd Pain Time Seen by Provider: 11/14/20 21:41 Source: patient, RN notes reviewed, old records reviewed Mode of arrival: ambulatory Limitations: no limitations - History of Present Illness Initial Comments: This is a 40-year-old female DF for evaluation patient presents with abdominal pain epigastric flank pain right-sided abdominal pain. Patient has history of kidney stones that she had kidney stones earlier this week, she did pass kidney stones with a chief passing kidney stones frequently. No recent discomfort with urination but no fevers. Mild nausea no vomiting or diarrhea. Patient has a chronic history of kidney stones. No other significant medical history high blood pressure arthritis MD Complaint: abdominal pain -: week(s) Location: diffuse, periumbilical Radiation: R flank Migration to: RLQ Severity: moderate Severity scale (1-10): 4 Quality: cramping, stabbing Consistency: intermittent Improves With: nothing Worsens With: nothing Context: other (none) Associated Symptoms: nausea, dysuria, hematuria Treatments Prior to Arrival: NSAIDs, prescription analgesics - Related Data Home Medications Medication Instructions Recorded Confirmed Losartan Potassium 100 mg PO HS 01/27/20 11/14/20 Verapamil HCl [Verapamil ER] 180 mg PO DAILY 01/27/20 11/14/20 tiZANidine [Zanaflex] 4 mg PO TID 01/27/20 11/14/20 Ibuprofen [Motrin] 600 mg PO BID PRN 11/14/20 11/14/20 clindamycin HCL [Cleocin] 300 mg PO QID 11/14/20 11/14/20 diazePAM [Valium] 2 mg PO DAILY 11/14/20 11/14/20 Allergies Allergy/AdvReac Type Severity Reaction Status Date / Time baclofen Allergy Rash/Hives Verified 11/14/20 22:36 clarithromycin [From Biaxin] Allergy Rash/Hives Verified 11/14/20 22:36 doxycycline [From Vibramycin] Allergy Rash/Hives Verified 11/14/20 22:36 latex Allergy Rash/Hives Verified 11/14/20 22:36 levofloxacin [From Levaquin] Allergy Rash/Hives Verified 11/14/20 22:36 metoclopramide [From Reglan] Allergy Rash/Hives Verified 11/14/20 22:36 nalbuphine [From Nubain] Allergy Unknown Verified 11/14/20 22:36 Penicillins Allergy Rash/Hives Verified 11/14/20 22:36 Sulfa (Sulfonamide Allergy Rash/Hives Verified 11/14/20 22:36 Antibiotics) sumatriptan [From Imitrex] Allergy increases Verified 11/14/20 22:36 blood pressure Review of Systems ROS Statement: Those systems with pertinent positive or pertinent negative responses have been documented in the HPI. ROS Other: All systems not noted in ROS Statement are negative. Past Medical History Past Medical History: Fibromyalgia, Hypertension, Osteoarthritis (OA) Additional Past Medical History / Comment(s): migraines, chronic lower back pain History of Any Multi-Drug Resistant Organisms: None Reported Past Surgical History: Appendectomy, Orthopedic Surgery, Tonsillectomy Additional Past Surgical History / Comment(s): sinus surgery, lt wrist SX, vulvadectomy Past Anesthesia/Blood Transfusion Reactions: No Reported Reaction Past Psychological History: Anxiety, Depression Smoking Status: Current every day smoker Past Alcohol Use History: None Reported Past Drug Use History: None Reported - Past Family History Mother Family Medical History: No Reported History General Exam Limitations: no limitations General appearance: alert, in no apparent distress Head exam: Present: atraumatic, normocephalic, normal inspection Eye exam: Present: normal appearance, PERRL, EOMI. Absent: scleral icterus, conjunctival injection, periorbital swelling ENT exam: Present: normal exam, mucous membranes moist Neck exam: Present: normal inspection. Absent: tenderness, meningismus, lymphadenopathy Respiratory exam: Present: normal lung sounds bilaterally. Absent: respiratory distress, wheezes, rales, rhonchi, stridor Cardiovascular Exam: Present: regular rate, normal rhythm, normal heart sounds. Absent: systolic murmur, diastolic murmur, rubs, gallop, clicks GI/Abdominal exam: Present: soft, tenderness (Epigastric), normal bowel sounds. Absent: distended, guarding, rebound, rigid Extremities exam: Present: normal inspection, full ROM, normal capillary refill. Absent: tenderness, pedal edema, joint swelling, calf tenderness Back exam: Present: normal inspection Neurological exam: Present: alert, oriented X3, CN II-XII intact Psychiatric exam: Present: normal affect, normal mood Skin exam: Present: warm, dry, intact, normal color. Absent: rash Course Vital Signs 11/14/20 11/14/20 21:35 21:54 Temperature 98.4 F Pulse Rate 88 74 Respiratory 20 18 Rate Blood Pressure 152/98 120/74 O2 Sat by Pulse 99 99 Oximetry - Reevaluation(s) Reevaluation #1: 11/14/20 23:55 Medical record is reviewed Reevaluation #2: 11/14/20 23:55 Patient's pain is well-controlled Reevaluation #3: 11/14/20 23:56 Patient informed results questions are answered feels good for discharge home Medical Decision Making - Medical Decision Making Auty 1 female DF for nonspecific abdominal pain epigastric right upper quadrant at times of flank pain and history of kidney stones. Imaging is negative here in the ER labwork is normal patient can be discharged home - Lab Data Result diagrams: 11/14/20 22:25 11/14/20 22:25 Lab Results 11/14/20 11/14/20 11/14/20 Range/Units 21:51 21:51 22:25 WBC 10.3 (3.8-10.6) k/uL RBC 4.50 (3.80-5.40) m/uL Hgb 14.4 (11.4-16.0) gm/dL Hct 42.2 (34.0-46.0) % MCV 93.8 (80.0-100.0) fL MCH 31.9 (25.0-35.0) pg MCHC 34.0 (31.0-37.0) g/dL RDW 12.6 (11.5-15.5) % Plt Count 265 (150-450) k/uL MPV 7.0 Neutrophils % 52 % Lymphocytes % 38 % Monocytes % 6 % Eosinophils % 2 % Basophils % 1 % Neutrophils # 5.4 (1.3-7.7) k/uL Lymphocytes # 3.9 (1.0-4.8) k/uL Monocytes # 0.6 (0-1.0) k/uL Eosinophils # 0.2 (0-0.7) k/uL Basophils # 0.1 (0-0.2) k/uL Sodium (137-145) mmol/L Potassium (3.5-5.1) mmol/L Chloride (98-107) mmol/L Carbon Dioxide (22-30) mmol/L Anion Gap mmol/L BUN (7-17) mg/dL Creatinine (0.52-1.04) mg/dL Est GFR (CKD-EPI)AfAm (>60 ml/min/1.73 sqM) Est GFR (CKD-EPI)NonAf (>60 ml/min/1.73 sqM) Glucose (74-99) mg/dL Plasma Lactic Acid Boom (0.7-2.0) mmol/L Calcium (8.4-10.2) mg/dL Total Bilirubin (0.2-1.3) mg/dL AST (14-36) U/L ALT (4-34) U/L Alkaline Phosphatase (38-126) U/L Total Protein (6.3-8.2) g/dL Albumin (3.5-5.0) g/dL Amylase (30-110) U/L Lipase (23-300) U/L Urine Color Yellow Urine Appearance Clear (Clear) Urine pH 5.5 (5.0-8.0) Ur Specific Mineral 1.023 (1.001-1.035) Urine Protein Negative (Negative) Urine Glucose (UA) Negative (Negative) Urine Ketones Negative (Negative) Urine Blood Moderate H (Negative) Urine Nitrite Negative (Negative) Urine Bilirubin Negative (Negative) Urine Urobilinogen <2.0 (<2.0) mg/dL Ur Leukocyte Esterase Small H (Negative) Urine RBC 8 H (0-5) /hpf Urine WBC 1 (0-5) /hpf Ur Squamous Epith Cells 8 H (0-4) /hpf Urine Bacteria Moderate H (None) /hpf Urine Mucus Rare H (None) /hpf Urine HCG, Qual Not Detected (Not Detectd) 11/14/20 11/14/20 Range/Units 22:25 22:25 WBC (3.8-10.6) k/uL RBC (3.80-5.40) m/uL Hgb (11.4-16.0) gm/dL Hct (34.0-46.0) % MCV (80.0-100.0) fL MCH (25.0-35.0) pg MCHC (31.0-37.0) g/dL RDW (11.5-15.5) % Plt Count (150-450) k/uL MPV Neutrophils % % Lymphocytes % % Monocytes % % Eosinophils % % Basophils % % Neutrophils # (1.3-7.7) k/uL Lymphocytes # (1.0-4.8) k/uL Monocytes # (0-1.0) k/uL Eosinophils # (0-0.7) k/uL Basophils # (0-0.2) k/uL Sodium 137 (137-145) mmol/L Potassium 4.5 (3.5-5.1) mmol/L Chloride 107 (98-107) mmol/L Carbon Dioxide 21 L (22-30) mmol/L Anion Gap 9 mmol/L BUN 19 H (7-17) mg/dL Creatinine 0.62 (0.52-1.04) mg/dL Est GFR (CKD-EPI)AfAm >90 (>60 ml/min/1.73 sqM) Est GFR (CKD-EPI)NonAf >90 (>60 ml/min/1.73 sqM) Glucose 87 (74-99) mg/dL Plasma Lactic Acid Boom 0.8 (0.7-2.0) mmol/L Calcium 9.3 (8.4-10.2) mg/dL Total Bilirubin 0.3 (0.2-1.3) mg/dL AST 29 (14-36) U/L ALT 26 (4-34) U/L Alkaline Phosphatase 76 (38-126) U/L Total Protein 6.9 (6.3-8.2) g/dL Albumin 4.0 (3.5-5.0) g/dL Amylase 58 (30-110) U/L Lipase 52 (23-300) U/L Urine Color Urine Appearance (Clear) Urine pH (5.0-8.0) Ur Specific Mineral (1.001-1.035) Urine Protein (Negative) Urine Glucose (UA) (Negative) Urine Ketones (Negative) Urine Blood (Negative) Urine Nitrite (Negative) Urine Bilirubin (Negative) Urine Urobilinogen (<2.0) mg/dL Ur Leukocyte Esterase (Negative) Urine RBC (0-5) /hpf Urine WBC (0-5) /hpf Ur Squamous Epith Cells (0-4) /hpf Urine Bacteria (None) /hpf Urine Mucus (None) /hpf Urine HCG, Qual (Not Detectd) - Radiology Data Radiology results: report reviewed (CT head and pelvis ultrasound gallbladder negative for acute disease), image reviewed Disposition Clinical Impression: Abdominal pain Disposition: HOME SELF-CARE Condition: Good Instructions (If sedation given, give patient instructions): Abdominal Pain (ED), Acute Low Back Pain (ED) Is patient prescribed a controlled substance at d/c from ED?: No Referrals: Bhanu Levy MD [Primary Care Provider] - 1-2 days
--- NOTE | 2020-11-14 23:42 | US ---
EXAMINATION TYPE: US gallbladder DATE OF EXAM: 11/14/2020 COMPARISON: 03/16/2020 CLINICAL HISTORY: pain. EXAM MEASUREMENTS: Liver Length: 14.7 cm Gallbladder Wall: 0.3 cm CBD: 0.2 cm Right Kidney: 10.4 x 3.9 x 4.7 cm Pancreas: Partially obscured by bowel gas, portions visualized wnl Liver: wnl Gallbladder: wnl Evidence for sonographic Garza's sign: Yes CBD: wnl Right Kidney: wnl IMPRESSION: No gallstones or dilated ducts. Negative exam. No adverse change.
[2020-11-15 00:05] VITALS: BP 147/73; PULSE 57
[2020-11-15] MEDS ORDERED: HYDROmorphone 1 MG/ML 1 ML SYRINGE IVP STA (00:07)
[2020-11-15] MEDS ORDERED: ACET/COD 300 MG/30 MG STARTER PACK 6 TAB BTL PO STA (00:07)
[2020-11-16 13:52] LABS: C. trachomatis,PCR Negative (Neg,Equiv); Chlamydia trachomatis Source Urine; N. gonorrhoeae,PCR Negative (Neg,Equiv); Neisseria Source Urine
== END 2020-11-15 00:22 | disposition home or self-care (01) ==
LOC: EC 21:33
DX: R10.13 Epigastric pain (principal); F17.200 Nicotine dependence, unspecified, uncomplicated; I10 Essential (primary) hypertension; F41.9 Anxiety disorder, unspecified; F32.9 Major depressive disorder, single episode, unspecified; M19.90 Unspecified osteoarthritis, unspecified site; Z88.0 Allergy status to penicillin
CPT/HCPCS: 36415; 80053; 82150; 83605; 83690; 85025; 81001; 81025; 87491; 87591; 76705; 74176; 99284; 96374; 96375; 96361; J2270; J1885

== ENCOUNTER → 2020-12-08 | Outpatient (CLI) | payer OTHER ==
--- NOTE | 2020-12-08 16:16 | NM ---
EXAMINATION TYPE: NM hepatobiliary w EF DATE OF EXAM: 12/08/2020 COMPARISON: Ultrasound 11/14/2020 HISTORY: 40-year-old female R10.84, abdominal pain. TECHNIQUE: After the intravenous administration of 4.8 mCi Tc 99m Mebrofenin hepatobiliary scintigrap hy is performed. Immediate images post injection. FINDINGS: There is satisfactory initial accumulation of tracer by the liver. The gallbladder is visualized wit hin 36 minutes. The small bowel activity is noted within 8 minutes. At one hour 8 ounces of oral en sure plus is given to mimic CCK and gallbladder ejection fraction is calculated at 90 %, elevated abo ve the expected range. IMPRESSION: 1. No scintigraphic evidence for acute/chronic cholecystitis or biliary dyskinesia. 2. However, gallbladder ejection fraction is elevated at 90%. This may be seen in the setting of gall bladder hyperkinesis.
== END | disposition home or self-care (01) ==
LOC: RADNMMAIN 12:58
PROVIDERS: ATTEND Internal Medicine
DX: R10.9 Unspecified abdominal pain (principal)
CPT/HCPCS: 78226; A9537

== ENCOUNTER 2021-04-09 19:02 | Emergency (ER) | payer OTHER ==
[2021-04-09 19:20] VITALS: BP 118/80; PULSE 78; RESP 19; TEMP 97.8
[2021-04-09] MEDS ORDERED: ONDANSETRON 4 MG/2 ML VIAL IVP STA (19:38)
[2021-04-09] MEDS ORDERED: diphenhydrAMINE 50 MG/ML 1 ML VIAL IVP STA (19:38)
[2021-04-09] MEDS ORDERED: KETOROLAC 15 MG/ML 1 ML VIAL IVP STA (19:38)
[2021-04-09] MEDS ORDERED: SODIUM CHLORIDE 0.9% 500 ML 500 ML IV STA (19:38)
[2021-04-09] MEDS ORDERED: MORPHINE SULFATE 4 MG/ML SYRINGE IVP STA ×2 (20:38→21:11)
--- NOTE | 2021-04-09 21:23 | ED ---
Headache HPI - General Chief Complaint: Headache Stated Complaint: headache Time Seen by Provider: 04/09/21 19:20 Source: RN notes reviewed Mode of arrival: ambulatory - History of Present Illness Initial Comments: Patient is a 41-year-old female that presents to emergency department complaining of migraine type headache. She notes that she has a history of chronic migraines. She notes that this one has not been helped at all with at home medications. She notes that she usually gets Toradol and Zofran and the strongest medication that is comfortable with giving for her migraines. She was otherwise a well-appearing 41-year-old female. She denied any chest pain shortness of breath nausea vomiting diarrhea constipation fever fatigue chills. - Related Data Home Medications Medication Instructions Recorded Confirmed Losartan Potassium 100 mg PO HS 01/27/20 11/14/20 Verapamil HCl [Verapamil ER] 180 mg PO DAILY 01/27/20 11/14/20 tiZANidine [Zanaflex] 4 mg PO TID 01/27/20 11/14/20 Ibuprofen [Motrin] 600 mg PO BID PRN 11/14/20 11/14/20 clindamycin HCL [Cleocin] 300 mg PO QID 11/14/20 11/14/20 diazePAM [Valium] 2 mg PO DAILY 11/14/20 11/14/20 Allergies Allergy/AdvReac Type Severity Reaction Status Date / Time baclofen Allergy Rash/Hives Verified 04/09/21 19:20 clarithromycin [From Biaxin] Allergy Rash/Hives Verified 04/09/21 19:20 doxycycline [From Vibramycin] Allergy Rash/Hives Verified 04/09/21 19:20 latex Allergy Rash/Hives Verified 04/09/21 19:20 levofloxacin [From Levaquin] Allergy Rash/Hives Verified 04/09/21 19:20 metoclopramide [From Reglan] Allergy Rash/Hives Verified 04/09/21 19:20 nalbuphine [From Nubain] Allergy Unknown Verified 04/09/21 19:20 Penicillins Allergy Rash/Hives Verified 04/09/21 19:20 Sulfa (Sulfonamide Allergy Rash/Hives Verified 04/09/21 19:20 Antibiotics) sumatriptan [From Imitrex] Allergy increases Verified 04/09/21 19:20 blood pressure Review of Systems ROS Statement: Those systems with pertinent positive or pertinent negative responses have been documented in the HPI. ROS Other: All systems not noted in ROS Statement are negative. Past Medical History Past Medical History: Fibromyalgia, Hypertension, Osteoarthritis (OA) Additional Past Medical History / Comment(s): migraines, chronic lower back pain History of Any Multi-Drug Resistant Organisms: None Reported Past Surgical History: Appendectomy, Orthopedic Surgery, Tonsillectomy Additional Past Surgical History / Comment(s): sinus surgery, lt wrist SX, vulvadectomy Past Anesthesia/Blood Transfusion Reactions: No Reported Reaction Past Psychological History: Anxiety, Depression Smoking Status: Current every day smoker Past Alcohol Use History: None Reported Past Drug Use History: None Reported - Past Family History Mother Family Medical History: No Reported History General Exam General appearance: alert, in no apparent distress Head exam: Present: atraumatic, normocephalic, normal inspection Eye exam: Present: normal appearance, PERRL, EOMI. Absent: scleral icterus, conjunctival injection, periorbital swelling ENT exam: Present: normal exam, mucous membranes moist Neck exam: Present: normal inspection Respiratory exam: Present: normal lung sounds bilaterally. Absent: respiratory distress, wheezes, rales, rhonchi, stridor Cardiovascular Exam: Present: regular rate, normal rhythm, normal heart sounds. Absent: systolic murmur, diastolic murmur, rubs, gallop, clicks GI/Abdominal exam: Present: soft, normal bowel sounds. Absent: distended, tenderness, guarding, rebound, rigid Extremities exam: Present: normal inspection, full ROM, normal capillary refill. Absent: tenderness, pedal edema, joint swelling, calf tenderness Neurological exam: Present: alert, oriented X3 Psychiatric exam: Present: normal affect, normal mood Skin exam: Present: warm, dry, intact, normal color. Absent: rash Course Vital Signs 04/09/21 19:16 Temperature 97.8 F Pulse Rate 78 Respiratory 19 Rate Blood Pressure 118/80 O2 Sat by Pulse 98 Oximetry Medical Decision Making - Medical Decision Making 1-year-old female complaining of migraine type headache chronic in nature. 500 mL of normal saline, 4 mg Zofran, 50 g Benadryl, 15 mg of Toradol ordered Upon reevaluation patient notes that she is still having some pain, 4mg morphine ordered. Upon evaluation patient is feeling better and wishes to go home. Case discussed with Dr. Guaman, patient discharge home with follow-up primary care. Disposition Clinical Impression: Migraine headache Disposition: HOME SELF-CARE Condition: Stable Instructions (If sedation given, give patient instructions): Acute Headache (ED) Additional Instructions: Please return to the Emergency Department if symptoms worsen or any other concerns. Is patient prescribed a controlled substance at d/c from ED?: No Referrals: Bhanu Levy MD [Primary Care Provider] - 1-2 days Time of Disposition: 21:23
== END 2021-04-09 21:42 | disposition home or self-care (01) ==
LOC: EC 19:02
DX: G43.909 Migraine, unspecified, not intractable, without status migrainosus (principal); I10 Essential (primary) hypertension; M19.90 Unspecified osteoarthritis, unspecified site; F41.9 Anxiety disorder, unspecified; F32.9 Major depressive disorder, single episode, unspecified; F17.200 Nicotine dependence, unspecified, uncomplicated; Z88.0 Allergy status to penicillin; Z88.1 Allergy status to other antibiotic agents; Z88.2 Allergy status to sulfonamides; Z91.040 Latex allergy status; Z90.49 Acquired absence of other specified parts of digestive tract; Z90.89 Acquired absence of other organs
CPT/HCPCS: 99283; 96374; 96375 ×3; 96376; 96361; J2270; J1200; J2405; J1885

== ENCOUNTER 2021-06-17 17:41 | Emergency (ER) | payer OTHER ==
[2021-06-17 18:20] VITALS: BP 133/86; PULSE 20; RESP 18; TEMP 98
[2021-06-17] MEDS ORDERED: MORPHINE SULFATE 4 MG/ML SYRINGE IM STA (19:55)
[2021-06-17] MEDS ORDERED: KETOROLAC 30 MG/ML 1 ML VIAL IM STA (19:55)
[2021-06-17] MEDS ORDERED: DIAZEPAM 5 MG/ML 2 ML INJ IM ONE (19:55)
--- NOTE | 2021-06-17 19:58 | ED ---
Back Pain HPI - General Chief Complaint: Back Pain/Injury Stated Complaint: Back pain Time Seen by Provider: 06/17/21 19:29 Source: patient Limitations: no limitations - History of Present Illness Initial Comments: 41-year-old female patient presents to the emergency department today for evaluation of left low back pain with radiation down the left leg. Patient states been hurting since Sunday. She denies any injury. States that it has been worsening throughout the week. States the pain radiates down her left hip to the front of her leg and down to her foot. She denies any loss of bowel or bladder control. Denies any saddle anesthesia. Denies any current hematuria, dysuria, urinary frequency, urinary urgency. Denies any abnormal vaginal bleeding or discharge noted she denies fevers. Denies abdominal pain. Patient is treated for chronic pain though her pain is usually on the right side. She does take [place] and Zanaflex at home. - Related Data Home Medications Medication Instructions Recorded Confirmed Losartan Potassium 100 mg PO HS 01/27/20 11/14/20 Verapamil HCl [Verapamil ER] 180 mg PO DAILY 01/27/20 11/14/20 tiZANidine [Zanaflex] 4 mg PO TID 01/27/20 11/14/20 Ibuprofen [Motrin] 600 mg PO BID PRN 11/14/20 11/14/20 clindamycin HCL [Cleocin] 300 mg PO QID 11/14/20 11/14/20 diazePAM [Valium] 2 mg PO DAILY 11/14/20 11/14/20 Previous Rx's Medication Instructions Recorded Diazepam [Valium] 5 mg PO TID PRN 3 Days #9 tab 06/17/21 Allergies Allergy/AdvReac Type Severity Reaction Status Date / Time baclofen Allergy Rash/Hives Verified 06/17/21 18:20 clarithromycin [From Biaxin] Allergy Rash/Hives Verified 06/17/21 18:20 doxycycline [From Vibramycin] Allergy Rash/Hives Verified 06/17/21 18:20 latex Allergy Rash/Hives Verified 06/17/21 18:20 levofloxacin [From Levaquin] Allergy Rash/Hives Verified 06/17/21 18:20 metoclopramide [From Reglan] Allergy Rash/Hives Verified 06/17/21 18:20 nalbuphine [From Nubain] Allergy Unknown Verified 06/17/21 18:20 Penicillins Allergy Rash/Hives Verified 06/17/21 18:20 Sulfa (Sulfonamide Allergy Rash/Hives Verified 06/17/21 18:20 Antibiotics) sumatriptan [From Imitrex] Allergy increases Verified 06/17/21 18:20 blood pressure Review of Systems ROS Statement: Those systems with pertinent positive or pertinent negative responses have been documented in the HPI. ROS Other: All systems not noted in ROS Statement are negative. Past Medical History Past Medical History: Fibromyalgia, Hypertension, Osteoarthritis (OA) Additional Past Medical History / Comment(s): migraines, chronic lower back pain History of Any Multi-Drug Resistant Organisms: None Reported Past Surgical History: Appendectomy, Orthopedic Surgery, Tonsillectomy Additional Past Surgical History / Comment(s): sinus surgery, lt wrist SX, vulvadectomy Past Anesthesia/Blood Transfusion Reactions: No Reported Reaction Past Psychological History: Anxiety, Depression Smoking Status: Current every day smoker Past Alcohol Use History: None Reported Past Drug Use History: None Reported - Past Family History Mother Family Medical History: No Reported History General Exam Limitations: no limitations General appearance: alert, in no apparent distress, other (This is a well- developed, well-nourished adult female patient in no acute distress. Heart rate on exam is 72.) ENT exam: Present: normal exam, normal oropharynx, mucous membranes moist Respiratory exam: Present: normal lung sounds bilaterally. Absent: respiratory distress, wheezes, rales, rhonchi, stridor Cardiovascular Exam: Present: regular rate, normal rhythm, normal heart sounds. Absent: systolic murmur, diastolic murmur, rubs, gallop, clicks GI/Abdominal exam: Present: soft, normal bowel sounds. Absent: distended, tenderness, guarding, rebound, rigid Extremities exam: Present: normal inspection, full ROM, normal capillary refill, other (Skin to the lower extremities is pink, warm, dry. Cap refill less than 3 seconds. Pedal and posttibial pulses 2+.). Absent: tenderness, pedal edema, joint swelling, calf tenderness Back exam: Present: normal inspection. Absent: vertebral tenderness Neurological exam: Present: alert, oriented X3, CN II-XII intact Psychiatric exam: Present: normal affect, normal mood Skin exam: Present: warm, dry, intact, normal color. Absent: rash Course Vital Signs 06/17/21 18:19 Temperature 98 F Pulse Rate 20 L Respiratory 18 Rate Blood Pressure 133/86 O2 Sat by Pulse 99 Oximetry Medical Decision Making - Medical Decision Making 41-year-old female patient presented to the emergency department for evaluation of left low back pain with radiation down the left leg. There are no concerning symptoms for cauda equina. She is afebrile normal vital signs. There was typo for heart rate in the triage vital signs, heart rate on exam is 72. She is neurologically intact with no focal deficits. She will be given IM injections of Toradol, Valium, and morphine here in the department. She will be discharged home to continue her home medications. She was instructed to stop her Zanaflex and use Valium for the next few days. Educated to apply ice and heat alternating. Instructed to follow-up with her primary care physician for recheck in 1-2 days. Return parameters were discussed in detail. She verbalizes understanding and agrees with this plan. My attending is Dr. Jorgensen. Disposition Clinical Impression: Sciatica, Piriformis syndrome of left side Disposition: HOME SELF-CARE Condition: Good Instructions (If sedation given, give patient instructions): Sciatica (ED), Piriformis Syndrome (ED) Additional Instructions: Take medications as directed. Do not take your Zanaflex when taking the Valium. Follow-up with your primary care physician for recheck in 1-2 days. Consider following up with orthopedics if symptoms are not improved after 2-3 days. Return for any new, worsening, or concerning symptoms. Prescriptions: Diazepam [Valium] 5 mg PO TID PRN 3 Days #9 tab PRN Reason: Muscle Spasm Is patient prescribed a controlled substance at d/c from ED?: Yes When asked, does pt state using other controlled substances?: Yes If prescribed controlled substance>3 days was MAPS reviewed?: Prescribed <3 Days Referrals: Bhanu Levy MD [Primary Care Provider] - 1-2 days Time of Disposition: 19:58
[2021-06-17] MEDS ORDERED: diphenhydrAMINE 50 MG CAP PO STA (20:11)
== END 2021-06-17 21:20 | disposition home or self-care (01) ==
LOC: EC 17:41
DX: M54.42 Lumbago with sciatica, left side (principal); I10 Essential (primary) hypertension; M79.7 Fibromyalgia; M19.90 Unspecified osteoarthritis, unspecified site; F32.9 Major depressive disorder, single episode, unspecified; F41.9 Anxiety disorder, unspecified; Z88.2 Allergy status to sulfonamides; Z88.0 Allergy status to penicillin; Z88.1 Allergy status to other antibiotic agents; Z79.899 Other long term (current) drug therapy
CPT/HCPCS: 96372 ×3; 99283; J2270; J3360; J1885

== ENCOUNTER 2021-07-11 14:49 | Emergency (ER) | payer OTHER ==
[2021-07-11 15:52] VITALS: BP 133/84; PULSE 68; RESP 20; TEMP 98
[2021-07-11] MEDS ORDERED: diphenhydrAMINE 50 MG/ML 1 ML VIAL IVP STA (19:34)
[2021-07-11] MEDS ORDERED: HYDROmorphone 0.5 MG/0.5 ML SYRINGE IVP STA (19:34)
--- NOTE | 2021-07-11 19:35 | ED ---
ENT HPI - General Chief complaint: ENT Stated complaint: Mouth and Face Pain, Facial Swelling Time Seen by Provider: 07/11/21 19:04 Source: patient Mode of arrival: ambulatory Limitations: no limitations - History of Present Illness Initial comments: Kyra is a 41-year-old female who presents to ER today for evaluation of facial swelling and pain. Patient reports she has not had any dental pain and she has had root canals on nearly all her teeth on that side of her face. Patient states that she woke up this morning she had pain and facial swelling is progressively worsened throughout the day. No recent antibiotics. No facial trauma. - Related Data Home Medications Medication Instructions Recorded Confirmed Losartan Potassium 100 mg PO HS 01/27/20 11/14/20 Verapamil HCl [Verapamil ER] 180 mg PO DAILY 01/27/20 11/14/20 tiZANidine [Zanaflex] 4 mg PO TID 01/27/20 11/14/20 Ibuprofen [Motrin] 600 mg PO BID PRN 11/14/20 11/14/20 clindamycin HCL [Cleocin] 300 mg PO QID 11/14/20 11/14/20 diazePAM [Valium] 2 mg PO DAILY 11/14/20 11/14/20 Previous Rx's Medication Instructions Recorded Diazepam [Valium] 5 mg PO TID PRN 3 Days #9 tab 06/17/21 Cephalexin [Keflex] 500 mg PO Q8HR 1 Days #3 cap 07/11/21 clindamycin HCL [Cleocin] 300 mg PO Q6HR 10 Days #40 cap 07/11/21 Allergies Allergy/AdvReac Type Severity Reaction Status Date / Time baclofen Allergy Rash/Hives Verified 07/11/21 15:49 clarithromycin [From Biaxin] Allergy Rash/Hives Verified 07/11/21 15:49 doxycycline [From Vibramycin] Allergy Rash/Hives Verified 07/11/21 15:49 latex Allergy Rash/Hives Verified 07/11/21 15:49 levofloxacin [From Levaquin] Allergy Rash/Hives Verified 07/11/21 15:49 metoclopramide [From Reglan] Allergy Rash/Hives Verified 07/11/21 15:49 nalbuphine [From Nubain] Allergy Unknown Verified 07/11/21 15:49 Penicillins Allergy Rash/Hives Verified 07/11/21 15:49 Sulfa (Sulfonamide Allergy Rash/Hives Verified 07/11/21 15:49 Antibiotics) sumatriptan [From Imitrex] Allergy increases Verified 07/11/21 15:49 blood pressure Review of Systems ROS Statement: Those systems with pertinent positive or pertinent negative responses have been documented in the HPI. ROS Other: All systems not noted in ROS Statement are negative. Past Medical History Past Medical History: Fibromyalgia, Hypertension, Osteoarthritis (OA) Additional Past Medical History / Comment(s): migraines, chronic lower back pain History of Any Multi-Drug Resistant Organisms: None Reported Past Surgical History: Appendectomy, Orthopedic Surgery, Tonsillectomy Additional Past Surgical History / Comment(s): sinus surgery, lt wrist SX, vulvadectomy Past Anesthesia/Blood Transfusion Reactions: No Reported Reaction Past Psychological History: Anxiety, Depression Smoking Status: Current every day smoker Past Alcohol Use History: None Reported Past Drug Use History: None Reported - Past Family History Mother Family Medical History: No Reported History General Exam - General Exam Comments Initial Comments: Physical Exam GENERAL: Patient is well-developed and well-nourished. Patient is nontoxic and well-hydrated and is in no distress. HENT: Normocephalic, Atraumatic. EYES: PERRL, EOMI PULMONARY: Unlabored respirations. CARDIOVASCULAR: RRR Warm and well perfused extremities ABDOMEN: Non-distended SKIN: No color changes but there is swelling of the left side of the face with significant tenderness : Deferred NEUROLOGIC: Alert and oriented Normal speech Normal gait MUSCULOSKELETAL: Moving all extremities with no apparent injury PSYCHIATRIC: No SI/HI Limitations: no limitations Course Vital Signs 07/11/21 15:49 Temperature 98.0 F Pulse Rate 68 Respiratory 20 Rate Blood Pressure 133/84 O2 Sat by Pulse 99 Oximetry Medical Decision Making - Medical Decision Making Patient was seen and evaluated, history is obtained from patient patient has facial swelling and pain, no redness no overlying cellulitis no signs of a dental infection Computed tomography scan of the face was obtained and reveals a phlegmon, patient with white count 18 but no fever or tachycardia. This time patient is stable to try outpatient management with oral antibiotics. Patient has multiple ALLERGIES she'll be prescribed clindamycin and Keflex which the patient has tolerated in the past. - Lab Data Result diagrams: 07/11/21 20:20 07/11/21 20:20 Lab Results 07/11/21 07/11/21 07/11/21 Range/Units 20:20 20:20 20:20 WBC 18.3 H (3.8-10.6) k/uL RBC 4.88 (3.80-5.40) m/uL Hgb 15.4 (11.4-16.0) gm/dL Hct 47.1 H (34.0-46.0) % MCV 96.6 (80.0-100.0) fL MCH 31.6 (25.0-35.0) pg MCHC 32.7 (31.0-37.0) g/dL RDW 13.0 (11.5-15.5) % Plt Count 397 (150-450) k/uL MPV 7.1 Neutrophils % 74 % Lymphocytes % 18 % Monocytes % 5 % Eosinophils % 1 % Basophils % 1 % Neutrophils # 13.6 H (1.3-7.7) k/uL Lymphocytes # 3.3 (1.0-4.8) k/uL Monocytes # 0.9 (0-1.0) k/uL Eosinophils # 0.2 (0-0.7) k/uL Basophils # 0.1 (0-0.2) k/uL Sodium 138 (137-145) mmol/L Potassium 4.4 (3.5-5.1) mmol/L Chloride 101 (98-107) mmol/L Carbon Dioxide 27 (22-30) mmol/L Anion Gap 10 mmol/L BUN 11 (7-17) mg/dL Creatinine 0.62 (0.52-1.04) mg/dL Est GFR (CKD-EPI)AfAm >90 (>60 ml/min/1.73 sqM) Est GFR (CKD-EPI)NonAf >90 (>60 ml/min/1.73 sqM) Glucose 95 (74-99) mg/dL Plasma Lactic Acid [place] 1.3 (0.7-2.0) mmol/L Calcium 9.6 (8.4-10.2) mg/dL Total Bilirubin 0.4 (0.2-1.3) mg/dL AST 22 (14-36) U/L ALT 26 (4-34) U/L Alkaline Phosphatase 110 (38-126) U/L Total Protein 8.1 (6.3-8.2) g/dL Albumin 4.7 (3.5-5.0) g/dL Disposition Clinical Impression: Facial infection Disposition: HOME SELF-CARE Condition: Stable Prescriptions: clindamycin HCL [Cleocin] 300 mg PO Q6HR 10 Days #40 cap Cephalexin [Keflex] 500 mg PO Q8HR 1 Days #3 cap Is patient prescribed a controlled substance at d/c from ED?: No Referrals: Bhanu Levy MD [Primary Care Provider] - 1-2 days
[2021-07-11] MEDS: SODIUM CHLORIDE 0.9% 500 ML 500 ML IV SCH ×2 (20:28→22:27)
[2021-07-11 20:42] LABS: Basophils # (A) 0.1 k/uL (0-0.2); Basophils % (A) 1 %; Eosinophils # (A) 0.2 k/uL (0-0.7); Eosinophils % (A) 1 %; HCT 47.1 % (34.0-46.0); HGB 15.4 gm/dL (11.4-16.0); Lymphocytes # (A) 3.3 k/uL (1.0-4.8); Lymphocytes % (A) 18 %; MCH 31.6 pg (25.0-35.0); MCHC 32.7 g/dL (31.0-37.0); MCV 96.6 fL (80.0-100.0); Mean Platelet Volume 7.1; Monocytes # (A) 0.9 k/uL (0-1.0); Monocytes % (A) 5 %; Neutrophils # (A) 13.6 k/uL (1.3-7.7); Neutrophils % (A) 74 %; Platelet Count 397 k/uL (150-450); RBC 4.88 m/uL (3.80-5.40); WBC 18.3 k/uL (3.8-10.6)
[2021-07-11 21:27] LABS: ALT 26 U/L (4-34); AST 22 U/L (14-36); African American GFR (CKD) >90 (>60 ml/min/1.73 sqM); Albumin 4.7 g/dL (3.5-5.0); Alkaline Phosphatase 110 U/L (38-126); Anion Gap 10 mmol/L; Blood Urea Nitrogen 11 mg/dL (7-17); Calcium 9.6 mg/dL (8.4-10.2); Carbon Dioxide 27 mmol/L (22-30); Chloride 101 mmol/L (98-107); Glucose 95 mg/dL (74-99); Non-African American GFR(CKD) >90 (>60 ml/min/1.73 sqM); Potassium 4.4 mmol/L (3.5-5.1); Sodium 138 mmol/L (137-145); Total Bilirubin 0.4 mg/dL (0.2-1.3); Total Protein 8.1 g/dL (6.3-8.2)
--- NOTE | 2021-07-11 21:40 | CT ---
EXAMINATION TYPE: CT facial bones w con DATE OF EXAM: 07/11/2021 COMPARISON: None HISTORY: LT side facial infection CT DLP: 430.5 mGycm Automated exposure control for dose reduction was used. CONTRAST: Performed with IV Contrast, patient injected with 100 mL of Isovue 370. Images obtained from the bottom of the mandible to the top of the frontal sinuses with IV contrast. Mandibular ring is intact. Parotid glands are symmetric. Temporomandibular joints are intact. Zygomat ic arches appear normal. Maxilla is intact. There is no evidence of orbital blowout fracture. Orbital margins are intact. There is no retro-orbital mass. Nasal bone is intact. There is some soft tissue swelling on the left side of the nose and anterior to the left maxilla cons istent with a phlegmon and cellulitis. This measures 2.6 cm. There is fairly normal aeration of the paranasal sinuses. There is normal aeration of the mastoid sin uses. Temporal bones appear intact. IMPRESSION: Soft tissue swelling anterior to the left maxilla consistent with phlegmon. No drainable fluid collec tion..
[2021-07-11] MEDS ORDERED: CLINDAMYCIN 150 MG CAP PO STA (22:22)
[2021-07-11] MEDS ORDERED: HYDROmorphone 1 MG/ML 1 ML SYRINGE IVP STA (22:29)
== END 2021-07-11 23:23 | disposition home or self-care (01) ==
LOC: EC 14:49
DX: L08.9 Local infection of the skin and subcutaneous tissue, unspecified (principal); I10 Essential (primary) hypertension; M19.90 Unspecified osteoarthritis, unspecified site; M79.7 Fibromyalgia; F41.9 Anxiety disorder, unspecified; F32.A Depression, unspecified; F17.200 Nicotine dependence, unspecified, uncomplicated; Z88.1 Allergy status to other antibiotic agents; Z91.040 Latex allergy status; Z88.0 Allergy status to penicillin; Z88.2 Allergy status to sulfonamides; Z90.49 Acquired absence of other specified parts of digestive tract
CPT/HCPCS: 99284; 96374; 96375; 96376; 36415; 80053; 83605; 85025; 87040; 70487; J1200; J1170 ×2; Q9967

== ENCOUNTER 2021-12-06 10:03 | Emergency (ER) | payer OTHER ==
[2021-12-06 10:39] VITALS: BP 120/80; PULSE 66; RESP 17; TEMP 98
[2021-12-06 11:19] LABS: Appearance,Urine Cloudy (Clear); Bacteria,Urine Few /hpf; Bilirubin,Urine Negative (Negative); Blood,Urine Small (Negative); Color,Urine Yellow; Glucose,Urine (UA) Negative (Negative); Ketones,Urine Negative (Negative); Leukocyte Esterase,Urine Negative (Negative); Mucus,Urine Rare /hpf; Nitrite,Urine Negative (Negative); PH, Urine 5.5 (5.0-8.0); Protein,Urine Negative (Negative); RBC,Urine 2 /hpf (0-5); Specific Gravity,Urine 1.017 (1.001-1.035); Squamous Epithelial Cell,Urine 12 /hpf (0-4); Urobilinogen,Urine <2.0 mg/dL (<2.0); WBC,Urine 1 /hpf (0-5)
[2021-12-06] MEDS ORDERED: MORPHINE SULFATE 2 MG/ML SYRINGE IVP STA ×2 (12:06→14:00)
[2021-12-06] MEDS ORDERED: SODIUM CHLORIDE 0.9% 1,000 ML IV STA (12:06)
[2021-12-06] MEDS ORDERED: KETOROLAC 15 MG/ML 1 ML VIAL IVP STA (12:06)
[2021-12-06 12:51] LABS: Basophils # (A) 0.1 k/uL (0-0.2); Basophils % (A) 1 %; Eosinophils # (A) 0.2 k/uL (0-0.7); Eosinophils % (A) 2 %; HCT 43.5 % (34.0-46.0); HGB 13.7 gm/dL (11.4-16.0); Lymphocytes # (A) 3.8 k/uL (1.0-4.8); Lymphocytes % (A) 32 %; MCH 30.7 pg (25.0-35.0); MCHC 31.4 g/dL (31.0-37.0); MCV 97.7 fL (80.0-100.0); Mean Platelet Volume 7.5; Monocytes # (A) 0.6 k/uL (0-1.0); Monocytes % (A) 5 %; Neutrophils # (A) 6.9 k/uL (1.3-7.7); Neutrophils % (A) 59 %; Platelet Count 297 k/uL (150-450); RBC 4.46 m/uL (3.80-5.40); RDW 12.7 % (11.5-15.5); WBC 11.8 k/uL (3.8-10.6)
[2021-12-06 13:00] LABS: INR 0.9 (<1.2); Partial Thromboplastin Time 23.5 sec (22.0-30.0)
[2021-12-06 13:23] LABS: ALT 29 U/L (4-34); AST 35 U/L (14-36); African American GFR (CKD) >90 (>60 ml/min/1.73 sqM); Albumin 4.1 g/dL (3.5-5.0); Alkaline Phosphatase 90 U/L (38-126); Amylase 50 U/L (30-110); Anion Gap 4 mmol/L; Blood Urea Nitrogen 10 mg/dL (7-17); Calcium 8.9 mg/dL (8.4-10.2); Carbon Dioxide 27 mmol/L (22-30); Chloride 104 mmol/L (98-107); Glucose 81 mg/dL (74-99); Lipase 45 U/L (23-300); Non-African American GFR(CKD) >90 (>60 ml/min/1.73 sqM); Potassium 4.6 mmol/L (3.5-5.1); Sodium 135 mmol/L (137-145); Total Bilirubin 0.2 mg/dL (0.2-1.3)
--- NOTE | 2021-12-06 13:26 | ED ---
General Adult HPI - General Chief complaint: Abdominal Pain Stated complaint: Urogenital Time Seen by Provider: 12/06/21 11:55 Source: patient Mode of arrival: ambulatory Limitations: no limitations - History of Present Illness Initial comments: This 41-year-old female with past medical history of kidney stones presents emergency Department with left-sided flank pain radiating to left lower quadrant Patient states she has been experiencing increased left-sided flank pain over the last 5 days and radiating to her left lower quadrant yesterday morning. Patient states her left flank is aching in nature with episodic sharp pains in her LLQ. Patient states her pain is currently 8/10 and when she gets the sharp pains it increases up to 10. Patient states she has taken Vicodin which does not seem to help her pain very much. Patient states she has had a little bit of urinary hesitancy and dribbling but denies any urinary burning, increased freq uency, blood. Patient states the pain episodically radiates to the left side of her abdomen. She denies any chest pain, shortness of breath, nausea, vomiting, change in bowel, change in appetite, lightheadedness, dizziness, fever, change in vision. Patient denies any lower back pain, bowel or bladder incontinence/retention or saddle anesthesia. - Related Data Home Medications Medication Instructions Recorded Confirmed Losartan Potassium 100 mg PO DAILY 01/27/20 12/06/21 tiZANidine [Zanaflex] 4 mg PO TID PRN 01/27/20 12/06/21 diazePAM [Valium] 2 mg PO HS PRN 11/14/20 12/06/21 Escitalopram [Lexapro] 10 mg PO DAILY 12/06/21 12/06/21 Furosemide [Lasix] 20 mg PO DAILY PRN 12/06/21 12/06/21 HYDROcodone/APAP 10-325MG [[place] 1 tab PO BID PRN 12/06/21 12/06/21 10-325] Omeprazole 20 mg PO DAILY PRN 12/06/21 12/06/21 Potassium Chloride ER [K-Dur 10] 10 meq PO DAILY PRN 12/06/21 12/06/21 Verapamil HCl [Verapamil ER] 120 mg PO HS 12/06/21 12/06/21 Allergies Allergy/AdvReac Type Severity Reaction Status Date / Time baclofen Allergy Rash/Hives Verified 12/06/21 13:34 clarithromycin [From Biaxin] Allergy Rash/Hives Verified 12/06/21 13:34 doxycycline [From Vibramycin] Allergy Rash/Hives Verified 12/06/21 13:34 latex Allergy Rash/Hives Verified 12/06/21 13:34 levofloxacin [From Levaquin] Allergy Rash/Hives Verified 12/06/21 13:34 metoclopramide [From Reglan] Allergy Rash/Hives Verified 12/06/21 13:34 nalbuphine [From Nubain] Allergy Unknown Verified 12/06/21 13:34 Penicillins Allergy Rash/Hives Verified 12/06/21 13:34 Sulfa (Sulfonamide Allergy Rash/Hives Verified 12/06/21 13:34 Antibiotics) sumatriptan [From Imitrex] Allergy increases Verified 12/06/21 13:34 blood pressure Review of Systems ROS Statement: Those systems with pertinent positive or pertinent negative responses have been documented in the HPI. ROS Other: All systems not noted in ROS Statement are negative. Past Medical History Past Medical History: Fibromyalgia, Hypertension, Osteoarthritis (OA) Additional Past Medical History / Comment(s): migraines, chronic lower back pain History of Any Multi-Drug Resistant Organisms: None Reported Past Surgical History: Appendectomy, Orthopedic Surgery, Tonsillectomy Additional Past Surgical History / Comment(s): sinus surgery, lt wrist SX, vulvadectomy Past Anesthesia/Blood Transfusion Reactions: No Reported Reaction Past Psychological History: Anxiety, Depression Smoking Status: Current every day smoker Past Alcohol Use History: None Reported Past Drug Use History: None Reported - Past Family History Mother Family Medical History: No Reported History General Exam Limitations: no limitations General appearance: alert, in no apparent distress Head exam: Present: atraumatic, normocephalic, normal inspection Eye exam: Present: normal appearance, PERRL, EOMI. Absent: scleral icterus, conjunctival injection, periorbital swelling Pupils: Present: normal accommodation ENT exam: Present: normal exam, mucous membranes moist Neck exam: Present: normal inspection, full ROM. Absent: tenderness, meningismus, lymphadenopathy Respiratory exam: Present: normal lung sounds bilaterally. Absent: respiratory distress, wheezes, rales, rhonchi, stridor Cardiovascular Exam: Present: regular rate, normal rhythm, normal heart sounds. Absent: systolic murmur, diastolic murmur, rubs, gallop, clicks GI/Abdominal exam: Present: soft, tenderness (Mild tenderness to palpation in left lower quadrant/left ovarian area), normal bowel sounds, other (Tenderness to palpation over the left ovary). Absent: distended, guarding, rebound, rigid Extremities exam: Present: normal inspection, full ROM, normal capillary refill. Absent: tenderness, pedal edema, joint swelling, calf tenderness Back exam: Present: full ROM, CVA tenderness (L). Absent: CVA tenderness (R) Neurological exam: Present: alert, oriented X3, CN II-XII intact Psychiatric exam: Present: normal affect, normal mood Skin exam: Present: warm, dry, intact, normal color. Absent: rash Course Vital Signs 12/06/21 10:37 Temperature 98 F Pulse Rate 66 Respiratory 17 Rate Blood Pressure 120/80 O2 Sat by Pulse 98 Oximetry Medical Decision Making - Medical Decision Making This 41-year-old male presents emergency department with left flank pain 5 days along with episodic sharp pain in her left ovary. CT abdomen and pelvis impression: Left ovarian cyst. Mild diverticulosis without acute diverticulitis. Kidneys without any masses or hydronephrosis present. No cysts are present. Patient with mild leukocytosis. Coagulations unremarkable. Chemistry normal. Urine with small blood. Urine hCG not detected. Patient does not want me to perform pelvic examination she states she is not having any difficulties or pain besides over her left ovary. Instructed patient to follow- up with her [employer] in next 1-2 days. Due to patient having left ovarian cyst measuring 2.7 cm and pain in her lower left quadrant, transvaginal ultrasound was performed. Transvaginal ultrasound impression: Left ovary with 2.11.81.9 cm cystic area. Pectoral color and waveform Doppler imaging shows good arterial flow within the left ovary, unable to obtain venous flow within the left ovary. Patient was requesting discharge and stated she would follow-up with an [employer] in the next 1-2 days and return if her pain increased. Patient stated she did not want to be admitted to the hospital. Patient stated her pain was 3/10 prior to discharge. Strict return precautions were discussed. Patient states she return if any of her symptoms worsen or if any new or concerning occurs. Patient verbally agreed to plan. Patient sent home in stable condition. Case discussed in detail my attending, Dr. Butler. I spoke with and read over transvaginal ultrasound impression- he said it was okay to discharge patient for follow-up with [employer]. - Lab Data Result diagrams: 12/06/21 12:46 12/06/21 12:46 Lab Results 12/06/21 12/06/21 12/06/21 Range/Units 10:53 10:53 12:46 WBC 11.8 H (3.8-10.6) k/uL RBC 4.46 (3.80-5.40) m/uL Hgb 13.7 (11.4-16.0) gm/dL Hct 43.5 (34.0-46.0) % MCV 97.7 (80.0-100.0) fL MCH 30.7 (25.0-35.0) pg MCHC 31.4 (31.0-37.0) g/dL RDW 12.7 (11.5-15.5) % Plt Count 297 (150-450) k/uL MPV 7.5 Neutrophils % 59 % Lymphocytes % 32 % Monocytes % 5 % Eosinophils % 2 % Basophils % 1 % Neutrophils # 6.9 (1.3-7.7) k/uL Lymphocytes # 3.8 (1.0-4.8) k/uL Monocytes # 0.6 (0-1.0) k/uL Eosinophils # 0.2 (0-0.7) k/uL Basophils # 0.1 (0-0.2) k/uL PT (9.0-12.0) sec INR (<1.2) APTT (22.0-30.0) sec Sodium (137-145) mmol/L Potassium (3.5-5.1) mmol/L Chloride (98-107) mmol/L Carbon Dioxide (22-30) mmol/L Anion Gap mmol/L BUN (7-17) mg/dL Creatinine (0.52-1.04) mg/dL Est GFR (CKD-EPI)AfAm (>60 ml/min/1.73 sqM) Est GFR (CKD-EPI)NonAf (>60 ml/min/1.73 sqM) Glucose (74-99) mg/dL Plasma Lactic Acid Boom (0.7-2.0) mmol/L Calcium (8.4-10.2) mg/dL Total Bilirubin (0.2-1.3) mg/dL AST (14-36) U/L ALT (4-34) U/L Alkaline Phosphatase (38-126) U/L Total Protein (6.3-8.2) g/dL Albumin (3.5-5.0) g/dL Amylase (30-110) U/L Lipase (23-300) U/L Urine Color Yellow Urine Appearance Cloudy H (Clear) Urine pH 5.5 (5.0-8.0) Ur Specific [place] 1.017 (1.001-1.035) Urine Protein Negative (Negative) Urine Glucose (UA) Negative (Negative) Urine Ketones Negative (Negative) Urine Blood Small H (Negative) Urine Nitrite Negative (Negative) Urine Bilirubin Negative (Negative) Urine Urobilinogen <2.0 (<2.0) mg/dL Ur Leukocyte Esterase Negative (Negative) Urine RBC 2 (0-5) /hpf Urine WBC 1 (0-5) /hpf Ur Squamous Epith Cells 12 H (0-4) /hpf Urine Bacteria Few H (None) /hpf Urine Mucus Rare H (None) /hpf Urine HCG, Qual Not Detected (Not Detectd) 12/06/21 12/06/21 12/06/21 Range/Units 12:46 12:46 12:46 WBC (3.8-10.6) k/uL RBC (3.80-5.40) m/uL Hgb (11.4-16.0) gm/dL Hct (34.0-46.0) % MCV (80.0-100.0) fL MCH (25.0-35.0) pg MCHC (31.0-37.0) g/dL RDW (11.5-15.5) % Plt Count (150-450) k/uL MPV Neutrophils % % Lymphocytes % % Monocytes % % Eosinophils % % Basophils % % Neutrophils # (1.3-7.7) k/uL Lymphocytes # (1.0-4.8) k/uL Monocytes # (0-1.0) k/uL Eosinophils # (0-0.7) k/uL Basophils # (0-0.2) k/uL PT 10.0 (9.0-12.0) sec INR 0.9 (<1.2) APTT 23.5 (22.0-30.0) sec Sodium 135 L (137-145) mmol/L Potassium 4.6 (3.5-5.1) mmol/L Chloride 104 (98-107) mmol/L Carbon Dioxide 27 (22-30) mmol/L Anion Gap 4 mmol/L BUN 10 (7-17) mg/dL Creatinine 0.66 (0.52-1.04) mg/dL Est GFR (CKD-EPI)AfAm >90 (>60 ml/min/1.73 sqM) Est GFR (CKD-EPI)NonAf >90 (>60 ml/min/1.73 sqM) Glucose 81 (74-99) mg/dL Plasma Lactic Acid Boom 1.2 (0.7-2.0) mmol/L Calcium 8.9 (8.4-10.2) mg/dL Total Bilirubin 0.2 (0.2-1.3) mg/dL AST 35 (14-36) U/L ALT 29 (4-34) U/L Alkaline Phosphatase 90 (38-126) U/L Total Protein 7.0 (6.3-8.2) g/dL Albumin 4.1 (3.5-5.0) g/dL Amylase 50 (30-110) U/L Lipase 45 (23-300) U/L Urine Color Urine Appearance (Clear) Urine pH (5.0-8.0) Ur Specific [place] (1.001-1.035) Urine Protein (Negative) Urine Glucose (UA) (Negative) Urine Ketones (Negative) Urine Blood (Negative) Urine Nitrite (Negative) Urine Bilirubin (Negative) Urine Urobilinogen (<2.0) mg/dL Ur Leukocyte Esterase (Negative) Urine RBC (0-5) /hpf Urine WBC (0-5) /hpf Ur Squamous Epith Cells (0-4) /hpf Urine Bacteria (None) /hpf Urine Mucus (None) /hpf Urine HCG, Qual (Not Detectd) Disposition Clinical Impression: Left flank pain, Left ovarian cyst Disposition: HOME SELF-CARE Condition: Stable Instructions (If sedation given, give patient instructions): Ovarian Cyst (ED), Kidney Stones (ED) Additional Instructions: Please follow-up with [employer] in next 1-2 days. Follow-up with primary care provider next 1-2 days. Stay hydrated and drink lots of water over the next few days. Return to the emergency department with any new, worsening, or concerning symptoms. Is patient prescribed a controlled substance at d/c from ED?: No Referrals: Bhanu Levy MD [Primary Care Provider] - 1-2 days Time of Disposition: 16:11
--- NOTE | 2021-12-06 13:31 | CT ---
EXAMINATION TYPE: CT abdomen pelvis wo con DATE OF EXAM: 12/06/2021 COMPARISON: 11/14/2020 INDICATION: Left side flank pain. DLP: 570.9 mGycm, Automated exposure control for dose reduction was used. CONTRAST: 0 mL of Isovue 300. Study performed without Oral Contrast TECHNIQUE: Axial images were obtained from above the diaphragm to the pubic rami in the axial plane a t 5 mm thick sections. Reconstructed images are reviewed on the computer in the coronal plane. FINDINGS: Limited CT sections are obtained the lung bases. The lung bases are clear. CT ABDOMEN: Liver: Normal Spleen: Normal Pancreas: Normal Adrenal glands: The adrenal glands are normal. Gallbladder: Normal Kidneys: No masses are evident. No hydronephrosis is present. No cysts are present. Delayed images were obtained through the kidneys, which remain unremarkable. Aorta: Minimal Vascular calcification is within the aorta. Inferior vena cava: Normal. CT PELVIS: Loops of bowel within the abdomen and pelvis are normal. Few diverticuli without acute diverticulitis or within the sigmoid colon. There are loops of bowel which are incompletely distended or lack or al contrast limiting their evaluation. Appendix: Normal as visualized. Appendix appears to contain contrast Urinary bladder: Normal. Genitourinary structures: Uterus appears normal. Left adnexal cyst measures 2.7 cm. This could be fol lowed with ultrasound. Osseous structures: No suspicious lytic or sclerotic lesions. IMPRESSIONS: 1. Left ovarian cyst. 2. Mild diverticulosis without acute diverticulitis.
[2021-12-06] MEDS ORDERED: ONDANSETRON 4 MG/2 ML VIAL IVP STA (14:00)
--- NOTE | 2021-12-06 15:50 | US ---
EXAMINATION TYPE: US transvaginal DATE OF EXAM: 12/06/2021 COMPARISON: CT 2021 CLINICAL HISTORY: left ovarian pain and cyst. Left pelvic pain, left ovarian cyst seen on CT TECHNIQUE: . Transvaginal ER exam with supplemental transabdominal images of left ovary EXAM MEASUREMENTS: Uterus: 9.5 x 4.0 x 4.7 cm Endometrial Stripe: 0.5 cm Right Ovary: not cm Left Ovary: 3.4 x 2.3 x 3.2 cm 1. Uterus: anteverted, mildly heterogeneous 2. Endometrium: appears wnl 3. Right Ovary: not seen due to overlying bowel gas 4. Left Ovary: 2.1 x 1.8 x 1.9cm cystic area Spectral, color and waveform doppler imaging shows good arterial flow within the left ovary; unable to obtain venous flow within the left ovary. 5. Bilateral Adnexa: wnl 6. Posterior cul-de-sac: wnl IMPRESSION: 1. Positive Arterial flow without demonstratable venous flow left ovary. [facility] of interpretation. 2. 2 cm left ovarian cyst.
[2021-12-06] MEDS ORDERED: ACET/COD 300 MG/30 MG STARTER PACK 6 TAB BTL PO STA (16:21)
== END 2021-12-06 16:25 | disposition home or self-care (01) ==
LOC: EC 10:03
DX: N83.202 Unspecified ovarian cyst, left side (principal); F17.200 Nicotine dependence, unspecified, uncomplicated; I10 Essential (primary) hypertension; Z88.1 Allergy status to other antibiotic agents; Z91.040 Latex allergy status; Z88.8 Allergy status to other drugs, medicaments and biological substances; Z88.0 Allergy status to penicillin; Z88.6 Allergy status to analgesic agent; Z88.2 Allergy status to sulfonamides
CPT/HCPCS: 80053; 82150; 83605; 83690; 85025; 85610; 85730; 81001; 81025; 93976; 76830; 74176; 99284; 96374; 96375; 96376; 96361; J2405; J2270; J1885; 36415

== ENCOUNTER 2022-10-26 19:56 | Emergency (ER) | payer OTHER ==
[2022-10-26 20:19] VITALS: BP 156/106; PULSE 99; RESP 18; TEMP 98.1
[2022-10-26] MEDS ORDERED: SODIUM CHLORIDE 0.9% 2,000 ML IV STA (20:44)
[2022-10-26] MEDS ORDERED: KETOROLAC 15 MG/ML 1 ML VIAL IVP STA (20:44)
[2022-10-26] MEDS ORDERED: ONDANSETRON 4 MG/2 ML VIAL IVP STA (20:44)
[2022-10-26] MEDS ORDERED: BENZOCAINE/MENTHOL SPRAY 1 GM/SPRAY AEROSOL TOPICAL ONE (20:57)
[2022-10-26] MEDS ORDERED: methylPREDNISolone SOD SUCCI 125 MG/2 ML VIAL IV STA (21:10)
--- NOTE | 2022-10-26 21:30 | ED ---
Skin/Abscess/FB HPI - General Chief complaint: Skin/Abscess/Foreign Body Stated complaint: skin irritation Time Seen by Provider: 10/26/22 20:19 Source: patient, RN notes reviewed Mode of arrival: ambulatory Limitations: no limitations - History of Present Illness Initial comments: This is a 42-year-old female who presents to the emergency department for bilateral lower extremity pain. States that she was in [place] 5 days ago. She ended up getting sunburns to both of her lower legs. She did not wear sunscreen, but states that she never gets valle like this. She is taking clindamycin for a dental infection, and wonders if this may be the cause of it. She's tried taking anti-inflammatories and using fwtp-[id number]-[id number] creams such as aloe with no relief in symptoms. States that it is getting painful to walk. Denies any fevers or chills. Denies any fevers, chills, sore throat, cough, dyspnea, chest pain, palpitations, abdominal pain, nausea, vomiting, diarrhea, back pain, or headaches. MD complaint: other (sunburn) Onset/Timin Location: LLE, RLE - Related Data Home Medications Medication Instructions Recorded Confirmed Losartan Potassium 100 mg PO HS 01/27/20 10/26/22 tiZANidine [Zanaflex] 4 mg PO TID PRN 01/27/20 10/26/22 diazePAM [Valium] 2 mg PO HS 11/14/20 10/26/22 Furosemide [Lasix] 20 mg PO BID PRN 12/06/21 10/26/22 Omeprazole 20 mg PO HS 12/06/21 10/26/22 Potassium Chloride ER [K-Dur 10] 10 meq PO DAILY PRN 12/06/21 10/26/22 Verapamil HCl [Verapamil ER] 120 mg PO HS 12/06/21 10/26/22 Desvenlafaxine Succinate [Pristiq 50 mg PO HS 10/26/22 10/26/22 ER] Magnesium Chloride [Slow-Mag] 64 mg PO DAILY 10/26/22 10/26/22 Previous Rx's Medication Instructions Recorded Diclofenac Sodium [Voltaren] 75 mg PO BID PRN #15 tab 10/26/22 HYDROcodone/APAP 5-325MG [[place] 1 tab PO Q6HR PRN 3 Days #12 tab 10/26/22 5-325] Allergies Allergy/AdvReac Type Severity Reaction Status Date / Time Penicillins Allergy Intermediate Rash/Hives Verified 10/26/22 22:32 very severe baclofen Allergy Rash/Hives Verified 10/26/22 22:32 clarithromycin [From Biaxin] Allergy Rash/Hives Verified 10/26/22 22:32 doxycycline [From Vibramycin] Allergy Rash/Hives Verified 10/26/22 22:32 latex Allergy Rash/Hives Verified 10/26/22 22:32 levofloxacin [From Levaquin] Allergy Rash/Hives Verified 10/26/22 22:32 metoclopramide [From Reglan] Allergy Rash/Hives Verified 10/26/22 22:32 nalbuphine [From Nubain] Allergy Unknown Verified 10/26/22 22:32 sulfamethoxazole Allergy Swelling, Verified 10/26/22 22:32 [From Bactrim] severe hives sumatriptan [From Imitrex] Allergy increases Verified 10/26/22 22:32 blood pressure trimethoprim [From Bactrim] Allergy Swelling, Verified 10/26/22 22:32 severe hives Review of Systems ROS Statement: Those systems with pertinent positive or pertinent negative responses have been documented in the HPI. ROS Other: All systems not noted in ROS Statement are negative. Past Medical History Past Medical History: Fibromyalgia, Hypertension, Osteoarthritis (OA) Additional Past Medical History / Comment(s): migraines, chronic lower back pain History of Any Multi-Drug Resistant Organisms: None Reported Past Surgical History: Appendectomy, Orthopedic Surgery, Tonsillectomy Additional Past Surgical History / Comment(s): sinus surgery, lt wrist SX, vulvadectomy Past Anesthesia/Blood Transfusion Reactions: No Reported Reaction Past Psychological History: Anxiety, Depression Smoking Status: Current every day smoker Past Alcohol Use History: None Reported Past Drug Use History: None Reported - Past Family History Mother Family Medical History: No Reported History General Exam Limitations: no limitations General appearance: alert, in no apparent distress Head exam: Present: atraumatic, normocephalic, normal inspection Respiratory exam: Present: normal lung sounds bilaterally. Absent: respiratory distress, wheezes, rales, rhonchi, stridor Cardiovascular Exam: Present: regular rate, normal rhythm, normal heart sounds. Absent: systolic murmur, diastolic murmur, rubs, gallop, clicks Extremities exam: Present: other (Erythema to the bilateral lower extremities, not involving the feet. Skin is tender and rough to the touch. There is blistering to the posterior distal aspect of the right tib-fib.) Neurological exam: Present: alert, oriented X3, CN II-XII intact Psychiatric exam: Present: normal affect, normal mood Course Vital Signs 10/26/22 20:13 Temperature 98.1 F Pulse Rate 99 Respiratory 18 Rate Blood Pressure 156/106 O2 Sat by Pulse 98 Oximetry Medical Decision Making - Medical Decision Making This is a 42-year-old female who presents to the emergency department for a sunburn. Was pt. sent in by a medical professional or institution? @ -No Did you speak to anyone other than the patient for history? @ -No Did you review nursing and triage notes? @ -Yes, and I agree, it is accurate with regards to the patient's symptoms. Were old charts reviewed? @ -No Differential Diagnosis? @ -Not applicable What testing was considered but not performed? (CT, X-rays, U/S, labs)? Why? @ -None What meds were considered but not given? Why? @ -None Did you discuss the management of the patient with other professionals? @ -No Did you reconcile home meds? @ -No Was smoking cessation discussed for >3mins.? @ -No Was critical care preformed (if so, how long)? @ -No Were there social determinants of health that impacted care today? How? (Homelessness, low income, unemployed, alcoholism, drug addiction, transportation, low edu. Level, literacy, decrease access to med. care, [facility], rehab)? @ -No Was there de-escalation of care discussed even if they declined? (Discuss DNR or withdrawal of care, Hospice)? @ -No What co-morbidities impacted this encounter? (DM, HTN, Smoking, COPD, CAD, Cancer, CVA, Hep., AIDS, mental health diagnosis, sleep apnea, morbid obesity)? @ -Fibromyalgia Was patient admitted / discharged? @ -Discharged. Physical examination consistent with a second-degree sunburn. Patient was given IV fluids, Toradol, and Zofran. Her pain was not adequately controlled and she subsequently required Dilaudid. Dermoplast spray was administered in the emergency department as well. We discussed a course of steroids, however the patient declined. States that with her dental infection, steroids always make it much worse. We discussed that she needs to continue with supportive care, and while these often heal on their own, given the extent of the burn, it may take a couple of weeks. Clindamycin also likely contributed to this by increasing her sun sensitivity. I did anger control counselor the patient on the need to use sunscreen on a regular basis whenever she is outdoors. Prescription for Diclofenac provided with dosing instructions reviewed. Patient is instructed to avoid taking any other yzwq-duc-dwzdtcf anti-inflammatories with this and to only take it with Tylenol. She was also given a prescription for a 3 day course of [place]. She is instructed to take this sparingly when her pain is the most severe and to avoid driving or operating machinery when taking this. OTC Solarcaine spray was recommended as well. She will otherwise follow up with her PCP to reevaluate the valle. Undiagnosed new problem with uncertain prognosis? @ -None Drug Therapy requiring intensive monitoring for toxicity (Heparin, Nitro, Insulin, Cardizem)? @ -None Were any procedures done? @ -None Diagnosis/symptom? @ -Second degree sunburn Acute, or Chronic, or Acute on Chronic? @ -Acute Uncomplicated (without systemic symptoms) or Complicated (systemic symptoms)? @ -Uncomplicated Side effects of treatment? @ -None Exacerbation, Progression, or Severe Exacerbation] @ -Not applicable Poses a threat to life or bodily function? @ -The pain is making it difficult to walk and function. Return precautions reviewed in depth, the patient is instructed to return to the emergency department with any new, worsening, or concerning symptoms. Patient verbalized understanding. This case was discussed in detail with the attending ED physician, Dr. Malone. Presentation, findings, and treatment plan discussed in detail as well. Disposition Clinical Impression: Sunburn of second degree Disposition: HOME SELF-CARE Instructions (If sedation given, give patient instructions): Sunburn (ED) Additional Instructions: Return to the emergency department with any new, worsening, or concerning symptoms. You can take the diclofenac twice daily as needed for pain. If you choose to take this, do not take any other xwfv-vfl-wwnlddh anti-inflammatories such as ibuprofen. Take one or the other. Take the [place] sparingly when your pain is the most severe and be aware that it may be sedating. You can try over the counter solarcaine sunburn relief spray. Make sure that you continue to wear loose clothing as well. Follow up with your primary care provider in 1-2 days. Prescriptions: HYDROcodone/APAP 5-325MG [[place] 5-325] 1 tab PO Q6HR PRN 3 Days #12 tab PRN Reason: Pain RX: Diclofenac Sodium [Voltaren] 75 mg PO BID PRN #15 tab PRN Reason: Pain Is patient prescribed a controlled substance at d/c from ED?: Yes When asked, does pt state using other controlled substances?: Yes If prescribed controlled substance>3 days was MAPS reviewed?: Prescribed <3 Days Referrals: Bhanu Levy MD [Primary Care Provider] - 1-2 days
[2022-10-26] MEDS ORDERED: HYDROmorphone 0.5 MG/0.5 ML SYRINGE IVP STA (21:44)
[2022-10-26] MEDS ORDERED: ONDANSETRON 4 MG ODT STARTER PACK 2 TAB BTL PO STA (23:09)
[2022-10-26] MEDS ORDERED: ACET/COD 300 MG/30 MG STARTER PACK 6 TAB BTL PO STA (23:09)
[2022-10-26] MEDS ORDERED: IBUPROFEN 600 MG STARTER PACK 4 TAB BTL PO STA (23:09)
[2022-10-26] MEDS ORDERED: HYDROmorphone 1 MG/ML 1 ML SYRINGE IVP STA (23:10)
== END 2022-10-26 23:39 | disposition home or self-care (01) ==
LOC: EC 19:56
DX: L55.1 Sunburn of second degree (principal); I10 Essential (primary) hypertension; M19.90 Unspecified osteoarthritis, unspecified site; F41.9 Anxiety disorder, unspecified; F32.A Depression, unspecified; F17.200 Nicotine dependence, unspecified, uncomplicated; Z88.0 Allergy status to penicillin; Z88.2 Allergy status to sulfonamides; Z91.040 Latex allergy status; Z88.1 Allergy status to other antibiotic agents; Z88.8 Allergy status to other drugs, medicaments and biological substances; Z79.899 Other long term (current) drug therapy
CPT/HCPCS: 99283; 96374; 96375 ×2; 96376; 96361 ×2; J2405; J1170 ×2; J1885; S0119

== ENCOUNTER → 2023-02-22 | Outpatient (CLI) | payer OTHER ==
--- NOTE | 2023-02-22 09:10 | US ---
EXAMINATION TYPE: US abdomen complete DATE OF EXAM: 02/22/2023 COMPARISON: NONE CLINICAL INDICATION: Female, 43 years old with history of R10.84 GENERALIZED ABDOMINAL PAIN; left si ded pain 1 month ago, nothing now, h/o right sided renal stones TECHNIQUE: Multiple sonographic images of the abdomen are obtained. FINDINGS: EXAM MEASUREMENTS: Liver Length: 13.7 cm Gallbladder Wall: 0.2 cm CBD: 0.4 cm Spleen: 9.0 cm Right Kidney: 10.7 x 3.9 x 4.0 cm Left Kidney: 9.6 x 3.5 x 5.0 cm Pancreas: Suboptimal visualization of the pancreatic tail due to shadowing from bowel gas. Visualize d portions show no gross abnormality. Liver: wnl Gallbladder: wnl Evidence for sonographic Garza's sign: no CBD: wnl Spleen: wnl Right Kidney: wnl Left Kidney: Slightly limited lower pole due to bowel gas shadowing. No hydronephrosis. Upper IVC: wnl Abd Aorta: wnl IMPRESSION: Unremarkable sonographic examination of the abdomen.
== END | disposition home or self-care (01) ==
LOC: RADUSWWP 07:12
PROVIDERS: ATTEND Internal Medicine
DX: R10.84 Generalized abdominal pain (principal)
CPT/HCPCS: 76700

== ENCOUNTER 2023-05-23 12:00 | Emergency (ER) | payer OTHER ==
[2023-05-23 12:31] VITALS: TEMP 98.5
[2023-05-23 13:48] LABS: Bacteria,Urine Moderate /hpf; RBC,Urine 7 /hpf (0-5); Squamous Epithelial Cell,Urine 8 /hpf (0-4); WBC,Urine 7 /hpf (0-5)
[2023-05-23 13:50] LABS: Appearance,Urine Clear (Clear); Bilirubin,Urine Negative (Negative); Color,Urine Yellow; Glucose,Urine (UA) Negative (Negative); Ketones,Urine Negative (Negative); Protein,Urine Negative (Negative)
[2023-05-23 13:51] LABS: Blood,Urine Trace (Negative); Leukocyte Esterase,Urine Small (Negative); Nitrite,Urine Negative (Negative); Urobilinogen,Urine <2.0 mg/dL (<2.0)
--- NOTE | 2023-05-23 17:21 | ED ---
General Adult HPI - General Chief complaint: Urogenital Stated complaint: UTI Time Seen by Provider: 05/23/23 16:57 Source: patient, RN notes reviewed Mode of arrival: ambulatory Limitations: no limitations - History of Present Illness Initial comments: 43-year-old female presents emergency Department with chief complaint of right sided flank pain that radiates to the abdomen, suprapubic pain with burning with urination. She states that the symptoms have been going on for around one week. She states that they did improve but then started again. She reports a history of kidney stones and states that this feels similar to in the past. She denies fever, chills. Admits to nausea without vomiting. - Related Data Home Medications Medication Instructions Recorded Confirmed Losartan Potassium 100 mg PO HS 01/27/20 10/26/22 tiZANidine [Zanaflex] 4 mg PO TID PRN 01/27/20 10/26/22 diazePAM [Valium] 2 mg PO HS 11/14/20 10/26/22 Furosemide [Lasix] 20 mg PO BID PRN 12/06/21 10/26/22 Omeprazole 20 mg PO HS 12/06/21 10/26/22 Potassium Chloride ER [K-Dur 10] 10 meq PO DAILY PRN 12/06/21 10/26/22 Verapamil HCl [Verapamil ER] 120 mg PO HS 12/06/21 10/26/22 Desvenlafaxine Succinate [Pristiq 50 mg PO HS 10/26/22 10/26/22 ER] Magnesium Chloride [Slow-Mag] 64 mg PO DAILY 10/26/22 10/26/22 Previous Rx's Medication Instructions Recorded Diclofenac Sodium [Voltaren] 75 mg PO BID PRN #15 tab 10/26/22 HYDROcodone/APAP 5-325MG [Hale 1 tab PO Q6HR PRN 3 Days #12 tab 10/26/22 5-325] Nitrofurantoin Monohyd/M-Cryst 100 mg PO Q12HR #10 cap 05/23/23 [Macrobid] Allergies Allergy/AdvReac Type Severity Reaction Status Date / Time Penicillins Allergy Intermediate Rash/Hives Verified 05/23/23 12:21 very severe baclofen Allergy Rash/Hives Verified 05/23/23 12:21 clarithromycin [From Biaxin] Allergy Rash/Hives Verified 05/23/23 12:21 doxycycline [From Vibramycin] Allergy Rash/Hives Verified 05/23/23 12:21 latex Allergy Rash/Hives Verified 05/23/23 12:21 levofloxacin [From Levaquin] Allergy Rash/Hives Verified 05/23/23 12:21 metoclopramide [From Reglan] Allergy Rash/Hives Verified 05/23/23 12:21 nalbuphine [From Nubain] Allergy Unknown Verified 05/23/23 12:21 sulfamethoxazole Allergy Swelling, Verified 05/23/23 12:21 [From Bactrim] severe hives sumatriptan [From Imitrex] Allergy increases Verified 05/23/23 12:21 blood pressure trimethoprim [From Bactrim] Allergy Swelling, Verified 05/23/23 12:21 severe hives Review of Systems ROS Statement: Those systems with pertinent positive or pertinent negative responses have been documented in the HPI. ROS Other: All systems not noted in ROS Statement are negative. Past Medical History Past Medical History: Fibromyalgia, Hypertension, Osteoarthritis (OA) Additional Past Medical History / Comment(s): migraines, chronic lower back pain History of Any Multi-Drug Resistant Organisms: None Reported Past Surgical History: Appendectomy, Orthopedic Surgery, Tonsillectomy Additional Past Surgical History / Comment(s): sinus surgery, lt wrist SX, vulvadectomy Past Anesthesia/Blood Transfusion Reactions: No Reported Reaction Past Psychological History: Anxiety, Depression Smoking Status: Current every day smoker Past Alcohol Use History: None Reported Past Drug Use History: None Reported - Past Family History Mother Family Medical History: No Reported History General Exam Limitations: no limitations General appearance: alert, in no apparent distress Head exam: Present: atraumatic, normocephalic, normal inspection Eye exam: Present: normal appearance, PERRL, EOMI. Absent: scleral icterus, conjunctival injection, periorbital swelling ENT exam: Present: normal exam, mucous membranes moist Respiratory exam: Present: normal lung sounds bilaterally. Absent: respiratory distress, wheezes, rales, rhonchi, stridor Cardiovascular Exam: Present: regular rate, normal rhythm, normal heart sounds. Absent: systolic murmur, diastolic murmur, rubs, gallop, clicks GI/Abdominal exam: Present: soft, normal bowel sounds. Absent: distended, tenderness, guarding, rebound, rigid Extremities exam: Present: normal inspection, full ROM, normal capillary refill. Absent: tenderness, pedal edema, joint swelling, calf tenderness Back exam: Present: normal inspection Neurological exam: Present: alert, oriented X3 Psychiatric exam: Present: normal affect, normal mood Skin exam: Present: warm, dry, intact, normal color. Absent: rash Course Vital Signs 05/23/23 05/23/23 12:19 19:44 Temperature 98.5 F Pulse Rate 65 57 L Respiratory 18 16 Rate Blood Pressure 132/87 130/79 O2 Sat by Pulse 98 99 Oximetry Medical Decision Making - Medical Decision Making Was pt. sent in by a medical professional or institution (, PA, TRUCK DRIVER RUBBISH COLLECTOR, urgent care, hospital, or group home...) When possible be specific @ -No Did you speak to anyone other than the patient for history (EMS, parent, family, police, friend...)? What history was obtained from this source @ -No Did you review nursing and triage notes (agree or disagree)? Why? @ -I reviewed and agree with nursing and triage notes Were old charts reviewed (outside hosp., previous admission, EMS record, old EKG, old radiological studies, urgent care reports/EKG's, group home records)? Report findings @ -No old charts were reviewed Differential Diagnosis (chest pain, altered mental status, abdominal pain women, abdominal pain men, vaginal bleeding, weakness, fever, dyspnea, syncope, headache, dizziness, GI bleed, back pain, seizure, CVA, palpatations, mental health, musculoskeletal)? @ -Differential Abdominal Pain Women: Appendicitis, Cholecystitis, diverticulosis, ischemic bowel, pancreatitis, hepatitis, UTI, gastroenteritis, AAA, incarcerated hernia, bowel obstruction, constipation, inflammatory bowel, hepatitis, peptic ulcer disease, splenic infarction, perforated viscus, vulvitis, ovarian torsion, PID, kidney stone, placenta abruption, this is not meant to be an all-inclusive list EKG interpreted by me (3pts min.). @ -None X-rays interpreted by me (1pt min.). @ -None done CT interpreted by me (1pt min.). @ -CT abdomen and pelvis shows Mild fecal retention, small hiatal hernia, no suspicious abnormalities to account for right flank pain U/S interpreted by me (1pt. min.). @ -None done What testing was considered but not performed or refused? (CT, X-rays, U/S, labs)? Why? @ -None What meds were considered but not given or refused? Why? @ -None Did you discuss the management of the patient with other professionals (professionals i.e. , PA, TRUCK DRIVER RUBBISH COLLECTOR, lab, RT, psych nurse, psych social worker, supervisor chassis assembly, teacher, information security officer, case work aide)? Give summary @ -No Was smoking cessation discussed for >3mins.? @ -No Was critical care preformed (if so, how long)? @ -No Were there social determinants of health that impacted care today? How? (Homelessness, low income, unemployed, alcoholism, drug addiction, transportation, low edu. Level, literacy, decrease access to med. care, fci, rehab)? @ -No Was there de-escalation of care discussed even if they declined (Discuss DNR or withdrawal of care, Hospice)? DNR status @ -No What co-morbidities impacted this encounter? (DM, HTN, Smoking, COPD, CAD, Cancer, CVA, ARF, Chemo, Hep., AIDS, mental health diagnosis, sleep apnea, morbid obesity)? @ -None Was patient admitted / discharged? Hospital course, mention meds given and route, prescriptions, significant lab abnormalities, going to OR and other pertinent info. @ -Discharged. Patient presented emergency approach chief complaint of right- sided flank pain and suprapubic discomfort. She admits to burning with urination. CBC unremarkable, CMP shows slightly elevated liver enzymes; UA shows small leukocyte esterase, 7 WBCs 7 RBCs, 8 squamous epithelial cells. Urine will be sent for culture. Patient will be treated for urinary tract infection as she is symptomatic. CT abdomen and pelvis shows small hiatal hernia, no acute process to account for patient's symptoms. Patient advised of findings and is agreeable understanding of plan. Patient stable at time of discharge. Case discussed with Dr. Aleman Undiagnosed new problem with uncertain prognosis? @ -No Drug Therapy requiring intensive monitoring for toxicity (Heparin, Nitro, I nsulin, Cardizem)? @ -No Were any procedures done? @ -No Diagnosis/symptom? @ -UTI Acute, or Chronic, or Acute on Chronic? @ -Acute Uncomplicated (without systemic symptoms) or Complicated (systemic symptoms)? @ -Uncomplicated Side effects of treatment? @ -No Exacerbation, Progression, or Severe Exacerbation? @ -No Poses a threat to life or bodily function? How? (Chest pain, USA, NM, pneumonia, PE, COPD, DKA, ARF, appy, cholecystitis, CVA, Diverticulitis, Homicidal, Suicidal, threat to staff... and all critical care pts) @ -No - Lab Data Result diagrams: 05/23/23 17:26 05/23/23 17:26 Lab Results 05/23/23 05/23/23 05/23/23 Range/Units 12:37 12:37 17:26 WBC 6.8 (3.8-10.6) k/uL RBC 4.20 (3.80-5.40) m/uL Hgb 13.3 (11.4-16.0) gm/dL Hct 40.0 (34.0-46.0) % MCV 95.0 (80.0-100.0) fL MCH 31.5 (25.0-35.0) pg MCHC 33.2 (31.0-37.0) g/dL RDW 13.4 (11.5-15.5) % Plt Count 286 (150-450) k/uL MPV 7.3 Neutrophils % 36 % Lymphocytes % 53 % Monocytes % 7 % Eosinophils % 2 % Basophils % 1 % Neutrophils # 2.5 (1.3-7.7) k/uL Lymphocytes # 3.6 (1.0-4.8) k/uL Monocytes # 0.5 (0-1.0) k/uL Eosinophils # 0.1 (0-0.7) k/uL Basophils # 0.1 (0-0.2) k/uL Sodium (137-145) mmol/L Potassium (3.5-5.1) mmol/L Chloride (98-107) mmol/L Carbon Dioxide (22-30) mmol/L Anion Gap mmol/L BUN (7-17) mg/dL Creatinine (0.52-1.04) mg/dL Est GFR (CKD-EPI)AfAm (>60 ml/min/1.73 sqM) Est GFR (CKD-EPI)NonAf (>60 ml/min/1.73 sqM) Glucose (74-99) mg/dL Calcium (8.4-10.2) mg/dL Total Bilirubin (0.2-1.3) mg/dL AST (14-36) U/L ALT (4-34) U/L Alkaline Phosphatase (38-126) U/L Total Protein (6.3-8.2) g/dL Albumin (3.5-5.0) g/dL Amylase (30-110) U/L Lipase (23-300) U/L Urine Color Yellow Urine Appearance Clear (Clear) Urine pH 6.0 (5.0-8.0) Ur Specific Carson 1.020 (1.001-1.035) Urine Protein Negative (Negative) Urine Glucose (UA) Negative (Negative) Urine Ketones Negative (Negative) Urine Blood Trace (Negative) Urine Nitrite Negative (Negative) Urine Bilirubin Negative (Negative) Urine Urobilinogen <2.0 (<2.0) mg/dL Ur Leukocyte Esterase Small (Negative) Urine RBC 7 H (0-5) /hpf Urine WBC 7 H (0-5) /hpf Ur Squamous Epith Cells 8 H (0-4) /hpf Urine Bacteria Moderate H (None) /hpf Urine HCG, Qual Not Detected (Not Detectd) 05/23/23 Range/Units 17:26 WBC (3.8-10.6) k/uL RBC (3.80-5.40) m/uL Hgb (11.4-16.0) gm/dL Hct (34.0-46.0) % MCV (80.0-100.0) fL MCH (25.0-35.0) pg MCHC (31.0-37.0) g/dL RDW (11.5-15.5) % Plt Count (150-450) k/uL MPV Neutrophils % % Lymphocytes % % Monocytes % % Eosinophils % % Basophils % % Neutrophils # (1.3-7.7) k/uL Lymphocytes # (1.0-4.8) k/uL Monocytes # (0-1.0) k/uL Eosinophils # (0-0.7) k/uL Basophils # (0-0.2) k/uL Sodium 139 (137-145) mmol/L Potassium 4.3 (3.5-5.1) mmol/L Chloride 106 (98-107) mmol/L Carbon Dioxide 26 (22-30) mmol/L Anion Gap 7 mmol/L BUN 15 (7-17) mg/dL Creatinine 0.59 (0.52-1.04) mg/dL Est GFR (CKD-EPI)AfAm >90 (>60 ml/min/1.73 sqM) Est GFR (CKD-EPI)NonAf >90 (>60 ml/min/1.73 sqM) Glucose 85 (74-99) mg/dL Calcium 9.1 (8.4-10.2) mg/dL Total Bilirubin 0.3 (0.2-1.3) mg/dL AST 40 H (14-36) U/L ALT 57 H (4-34) U/L Alkaline Phosphatase 55 (38-126) U/L Total Protein 6.8 (6.3-8.2) g/dL Albumin 4.1 (3.5-5.0) g/dL Amylase 52 (30-110) U/L Lipase 34 (23-300) U/L Urine Color Urine Appearance (Clear) Urine pH (5.0-8.0) Ur Specific Carson (1.001-1.035) Urine Protein (Negative) Urine Glucose (UA) (Negative) Urine Ketones (Negative) Urine Blood (Negative) Urine Nitrite (Negative) Urine Bilirubin (Negative) Urine Urobilinogen (<2.0) mg/dL Ur Leukocyte Esterase (Negative) Urine RBC (0-5) /hpf Urine WBC (0-5) /hpf Ur Squamous Epith Cells (0-4) /hpf Urine Bacteria (None) /hpf Urine HCG, Qual (Not Detectd) Disposition Clinical Impression: Urinary tract infection Disposition: HOME SELF-CARE Condition: Stable Instructions (If sedation given, give patient instructions): Urinary Tract Infection in Women (ED) Additional Instructions: Please follow up with your primary care provider. Return to the emergency department for new or worsening symptoms. Prescriptions: Nitrofurantoin Monohyd/M-Cryst [Macrobid] 100 mg PO Q12HR #10 cap Is patient prescribed a controlled substance at d/c from ED?: No Referrals: Bhanu Levy MD [Primary Care Provider] - 1-2 days
[2023-05-23] MEDS ORDERED: KETOROLAC 15 MG/ML 1 ML VIAL IVP STA (17:42)
[2023-05-23 17:50] LABS: Basophils # (A) 0.1 k/uL (0-0.2); Basophils % (A) 1 %; Eosinophils # (A) 0.1 k/uL (0-0.7); Eosinophils % (A) 2 %; HGB 13.3 gm/dL (11.4-16.0); Lymphocytes # (A) 3.6 k/uL (1.0-4.8); Lymphocytes % (A) 53 %; MCH 31.5 pg (25.0-35.0); MCHC 33.2 g/dL (31.0-37.0); Mean Platelet Volume 7.3; Monocytes # (A) 0.5 k/uL (0-1.0); Monocytes % (A) 7 %; Neutrophils # (A) 2.5 k/uL (1.3-7.7); Neutrophils % (A) 36 %; Platelet Count 286 k/uL (150-450); RDW 13.4 % (11.5-15.5); WBC 6.8 k/uL (3.8-10.6)
[2023-05-23 18:20] LABS: ALT 57 U/L (4-34); AST 40 U/L (14-36); African American GFR (CKD) >90 (>60 ml/min/1.73 sqM); Albumin 4.1 g/dL (3.5-5.0); Alkaline Phosphatase 55 U/L (38-126); Amylase 52 U/L (30-110); Anion Gap 7 mmol/L; Blood Urea Nitrogen 15 mg/dL (7-17); Calcium 9.1 mg/dL (8.4-10.2); Carbon Dioxide 26 mmol/L (22-30); Chloride 106 mmol/L (98-107); Glucose 85 mg/dL (74-99); Lipase 34 U/L (23-300); Non-African American GFR(CKD) >90 (>60 ml/min/1.73 sqM); Potassium 4.3 mmol/L (3.5-5.1); Sodium 139 mmol/L (137-145); Total Bilirubin 0.3 mg/dL (0.2-1.3); Total Protein 6.8 g/dL (6.3-8.2)
--- NOTE | 2023-05-23 18:30 | CT ---
EXAMINATION TYPE: CT abdomen pelvis wo con DATE OF EXAM: 05/23/2023 COMPARISON: 12/06/2021 INDICATION: RT flank pain DLP: 317.60 mGycm, Automated exposure control for dose reduction was used. CONTRAST: 0 mL of Isovue 370. Study performed without Oral Contrast TECHNIQUE: Axial images were obtained from above the diaphragm to the pubic rami in the axial plane a t 5 mm thick sections. Reconstructed images are reviewed on the computer in the coronal plane. FINDINGS: Limited CT sections are obtained the lung bases. The lung bases are clear. There is a small hiatal hernia present CT ABDOMEN: Liver: Normal Spleen: Normal Pancreas: Normal Adrenal glands: The adrenal glands are normal. Gallbladder: Normal Kidneys: No masses are evident. No hydronephrosis is present. No cysts are present. Delayed images were obtained through the kidneys, which remain unremarkable. Aorta: Vascular calcification is within the aorta. Inferior vena cava: Normal. CT PELVIS: Loops of bowel within the abdomen and pelvis are normal. Some fecal debris throughout the colon. Correlate for mild fecal retention Appendix: Not visualized. This appears to be surgically absent. Clinical management of any suspected appendicitis is recommended Urinary bladder: Normal. Genitourinary structures: Uterus appears normal. Adnexa are unremarkable Osseous structures: No suspicious lytic or sclerotic lesions. IMPRESSION: 1. Correlate for mild fecal retention. 2. Small hiatal hernia. 3. No suspicious abnormalities to account for right flank pain
[2023-05-23] MEDS ORDERED: NITROFURANTOIN MONOHYD/M-CRYST 100 MG CAP PO STA ×2 (19:14→19:23)
[2023-05-23 19:49] VITALS: BP 130/79; PULSE 57; RESP 16
== END 2023-05-23 19:46 | disposition home or self-care (01) ==
LOC: EC 12:00
DX: N39.0 Urinary tract infection, site not specified (principal); I10 Essential (primary) hypertension; M19.90 Unspecified osteoarthritis, unspecified site; F41.9 Anxiety disorder, unspecified; F32.A Depression, unspecified; F17.200 Nicotine dependence, unspecified, uncomplicated; Z88.0 Allergy status to penicillin; Z88.8 Allergy status to other drugs, medicaments and biological substances; Z88.2 Allergy status to sulfonamides; Z91.040 Latex allergy status; Z79.899 Other long term (current) drug therapy
CPT/HCPCS: 36415; 80053; 82150; 83690; 85025; 81001; 81025; 74176; 99284; 96374; J1885

== ENCOUNTER 2023-08-13 20:03 | Emergency (ER) | payer OTHER ==
[2023-08-13 20:32] VITALS: RESP 18
[2023-08-13 20:44] LABS: Basophils # (A) 0.1 k/uL (0-0.2); Basophils % (A) 0 %; Eosinophils # (A) 0.1 k/uL (0-0.7); Eosinophils % (A) 1 %; HCT 42.7 % (34.0-46.0); HGB 14.8 gm/dL (11.4-16.0); Lymphocytes # (A) 3.2 k/uL (1.0-4.8); Lymphocytes % (A) 21 %; MCHC 34.7 g/dL (31.0-37.0); Mean Platelet Volume 7.9; Monocytes # (A) 0.7 k/uL (0-1.0); Monocytes % (A) 4 %; Neutrophils # (A) 10.8 k/uL (1.3-7.7); Neutrophils % (A) 72 %; Platelet Count 312 k/uL (150-450); RBC 4.49 m/uL (3.80-5.40); RDW 12.4 % (11.5-15.5); WBC 14.9 k/uL (3.8-10.6)
--- NOTE | 2023-08-13 20:53 | XR ---
EXAMINATION TYPE: XR chest 2V DATE OF EXAM: 08/13/2023 COMPARISON: 08/26/2019 HISTORY: Chest pain TECHNIQUE: Frontal and lateral views of the chest are obtained. FINDINGS: There is no focal air space opacity, pleural effusion, or pneumothorax seen. The cardiac silhouette size is within normal limits. The osseous structures are intact. IMPRESSION: No acute cardiopulmonary process.
[2023-08-13 21:00] LABS: INR 0.9 (<1.2); Partial Thromboplastin Time 24.6 sec (22.0-30.0); Prothrombin Time 10.4 sec (10.0-12.5)
[2023-08-13 21:12] LABS: ALT 16 U/L (4-34); AST 20 U/L (14-36); African American GFR (CKD) >90 (>60 ml/min/1.73 sqM); Albumin 4.5 g/dL (3.5-5.0); Alkaline Phosphatase 77 U/L (38-126); Anion Gap 10 mmol/L; Blood Urea Nitrogen 6 mg/dL (7-17); Calcium 9.7 mg/dL (8.4-10.2); Carbon Dioxide 22 mmol/L (22-30); Chloride 107 mmol/L (98-107); Glucose 101 mg/dL (74-99); Magnesium 1.7 mg/dL (1.6-2.3); Non-African American GFR(CKD) >90 (>60 ml/min/1.73 sqM); Potassium 3.7 mmol/L (3.5-5.1); Sodium 139 mmol/L (137-145); Total Bilirubin 0.4 mg/dL (0.2-1.3); Total Protein 7.9 g/dL (6.3-8.2)
--- NOTE | 2023-08-13 23:02 | ED ---
Chest Pain HPI - General Source: patient Mode of arrival: wheelchair Limitations: no limitations <Dariel Goldstein - Last Filed: 08/13/23 23:02> - History of Present Illness MD Complaint: chest pain Onset/Timin -: days(s) Onset: during rest Pain Location: left chest Pain Radiation: LUE Severity: moderate Quality: aching Consistency: constant Improves With: nothing Worsens With: nothing Treatments Prior to Arrival: none <Devin Malone - Last Filed: 08/14/23 04:51> - General Chief Complaint: Chest Pain Stated Complaint: Chest pain,Left Arm Numbness Time Seen by Provider: 08/13/23 23:01 - History of Present Illness Initial Comments: 43-year-old female presents ED with a chief complaint of chest pain. Patient states for the past few days has had pain in the left side of her chest and also pain of her left arm. Since onset reports worsening of severity. Does note that she has been very stressed lately. (Dariel Goldstein) - Related Data Home Medications Medication Instructions Recorded Confirmed Losartan Potassium 100 mg PO HS 01/27/20 10/26/22 tiZANidine [Zanaflex] 4 mg PO TID PRN 01/27/20 10/26/22 diazePAM [Valium] 2 mg PO HS 11/14/20 10/26/22 Furosemide [Lasix] 20 mg PO BID PRN 12/06/21 10/26/22 Omeprazole 20 mg PO HS 12/06/21 10/26/22 Potassium Chloride ER [K-Dur 10] 10 meq PO DAILY PRN 12/06/21 10/26/22 Verapamil HCl [Verapamil ER] 120 mg PO HS 12/06/21 10/26/22 Desvenlafaxine Succinate [Pristiq 50 mg PO HS 10/26/22 10/26/22 ER] Magnesium Chloride [Slow-Mag] 64 mg PO DAILY 10/26/22 10/26/22 Previous Rx's Medication Instructions Recorded Diclofenac Sodium [Voltaren] 75 mg PO BID PRN #15 tab 10/26/22 HYDROcodone/APAP 5-325MG [[place] 1 tab PO Q6HR PRN 3 Days #12 tab 10/26/22 5-325] Nitrofurantoin Monohyd/M-Cryst 100 mg PO Q12HR #10 cap 05/23/23 [Macrobid] Allergies Allergy/AdvReac Type Severity Reaction Status Date / Time Penicillins Allergy Intermediate Rash/Hives Verified 08/13/23 20:12 very severe baclofen Allergy Rash/Hives Verified 08/13/23 20:12 clarithromycin [From Biaxin] Allergy Rash/Hives Verified 08/13/23 20:12 doxycycline [From Vibramycin] Allergy Rash/Hives Verified 08/13/23 20:12 latex Allergy Rash/Hives Verified 08/13/23 20:12 levofloxacin [From Levaquin] Allergy Rash/Hives Verified 08/13/23 20:12 metoclopramide [From Reglan] Allergy Rash/Hives Verified 08/13/23 20:12 nalbuphine [From Nubain] Allergy Unknown Verified 08/13/23 20:12 sulfamethoxazole Allergy Swelling, Verified 08/13/23 20:12 [From Bactrim] severe hives sumatriptan [From Imitrex] Allergy increases Verified 08/13/23 20:12 blood pressure trimethoprim [From Bactrim] Allergy Swelling, Verified 08/13/23 20:12 severe hives Review of Systems ROS Other: All systems not noted in ROS Statement are negative. <Dariel Goldstein - Last Filed: 08/13/23 23:02> ROS Other: All systems not noted in ROS Statement are negative. Constitutional: Denies: fever, chills, weakness Respiratory: Denies: cough, dyspnea Cardiovascular: Reports: chest pain. Denies: palpitations, edema, syncope Gastrointestinal: Denies: abdominal pain, nausea, vomiting, diarrhea Genitourinary: Denies: dysuria, hematuria Musculoskeletal: Reports: myalgia. Denies: back pain Skin: Denies: rash (Right calf) Neurological: Denies: headache, weakness, numbness <Devin Malone - Last Filed: 08/14/23 04:51> ROS Statement: Those systems with pertinent positive or pertinent negative responses have been documented in the HPI. EKG Findings - EKG Results: EKG: interpreted by BRAVO WNL, sinus rhythm (Sinus arrhythmia, rate 77 bpm), normal axis, normal QRS, normal ST/T, no acute changes <Devin Malone - Last Filed: 08/14/23 04:51> Past Medical History Past Medical History: Fibromyalgia, Hypertension, Osteoarthritis (OA) Additional Past Medical History / Comment(s): migraines, chronic lower back pain History of Any Multi-Drug Resistant Organisms: None Reported Past Surgical History: Appendectomy, Orthopedic Surgery, Tonsillectomy Additional Past Surgical History / Comment(s): sinus surgery, lt wrist SX, vulvadectomy Past Anesthesia/Blood Transfusion Reactions: No Reported Reaction Past Psychological History: Anxiety, Depression Smoking Status: Current every day smoker Past Alcohol Use History: None Reported Past Drug Use History: None Reported - Past Family History Mother Family Medical History: No Reported History <Dariel Goldstein - Last Filed: 08/13/23 23:02> General Exam Limitations: no limitations <Dariel Goldstein - Last Filed: 08/13/23 23:02> Limitations: no limitations General appearance: alert, in no apparent distress Head exam: Present: atraumatic, normocephalic Eye exam: Present: normal appearance. Absent: scleral icterus, conjunctival injection Neck exam: Present: normal inspection, full ROM. Absent: tenderness Respiratory exam: Present: normal lung sounds bilaterally. Absent: respiratory distress, wheezes, rales, rhonchi, stridor, chest wall tenderness, accessory muscle use Cardiovascular Exam: Present: regular rate, normal rhythm, normal heart sounds. Absent: systolic murmur, diastolic murmur, rubs, gallop GI/Abdominal exam: Present: soft. Absent: distended, tenderness, guarding, rebound, rigid, mass Extremities exam: Present: normal inspection, normal capillary refill, other (No palpable cord or Homans sign). Absent: pedal edema, calf tenderness Back exam: Present: normal inspection. Absent: paraspinal tenderness, vertebral tenderness Neurological exam: Present: alert Psychiatric exam: Present: anxious Skin exam: Present: warm, dry, intact, normal color. Absent: rash <Devin Malone - Last Filed: 08/14/23 04:51> - General Exam Comments Initial Comments: Visual Physical Exam Vital signs reviewed General: Well-appearing, nontoxic, no acute distress. Head: Normocephalic, atraumatic Eyes: PERRLA, EOMI ENT: Airway patent Chest: Nonlabored breathing Skin: No visual rash, normal skin tone Neuro: Alert and oriented 3 Musculoskeletal: No gross abnormalities (Dariel Goldstein) Course Vital Signs 08/13/23 08/13/23 08/14/23 20:09 23:56 01:22 Temperature 97.9 F 98.6 F Pulse Rate 94 65 68 Respiratory 18 18 18 Rate Blood Pressure 146/94 141/87 127/86 O2 Sat by Pulse 99 97 99 Oximetry Chest Pain [facility] <RadhaDariel benavides - Last Filed: 08/13/23 23:02> <KristoferDevin rodgers - Last Filed: 08/14/23 04:51> - MDM Quicknote portion performed. Signed Dariel Goldstein PA-C (Dariel Goldstein) The patient had chest x-ray which I interpreted as negative for acute infiltrate, pneumothorax, congestive heart failure. Was pt. sent in by a medical professional or institution (JOEL Wynne, CUSTOMER SUPPORT EXECUTIVE, urgent care, hospital, or half-way...) When possible be specific @ -[No] Did you speak to anyone other than the patient for history (EMS, parent, family, police, friend...)? What history was obtained from this source @ -[No] Did you review nursing and triage notes (agree or disagree)? Why? @ -[I reviewed and agree with nursing and triage notes] Were old charts reviewed (outside hosp., previous admission, EMS record, old EKG, old radiological studies, urgent care reports/EKG's, half-way records)? Report findings @ -[No old charts were reviewed] Differential Diagnosis (chest pain, altered mental status, abdominal pain women, abdominal pain men, vaginal bleeding, weakness, fever, dyspnea, syncope, headache, dizziness, GI bleed, back pain, seizure, CVA, palpatations, mental health, musculoskeletal)? @ -[Differential Chest Pain: Stable Angina, Unstable Angina, STEMI, NSTEMI Aortic Dissection, Pneumothorax, Musculoskeletal, Esophageal Spasm GERD, Cholecystitis, Pancreatitis, Zoster, this is not meant to be an all-inclusive list. EKG interpreted by me (3pts min.). @ -[I interpreted As above] X-rays interpreted by me (1pt min.). @ -[I interpreted as above CT interpreted by me (1pt min.). @ -[None done] U/S interpreted by me (1pt. min.). @ -[None done] What testing was considered but not performed or refused? (CT, X-rays, U/S, labs)? Why? @ -[None] What meds were considered but not given or refused? Why? @ -[None] Did you discuss the management of the patient with other professionals (professionals i.e. , PA, CUSTOMER SUPPORT EXECUTIVE, lab, RT, psych nurse, mental health social worker, public health educator, teacher, staff antisubmarine officer, caseworker intake)? Give summary @ -[No] Was smoking cessation discussed for >3mins.? @ -[Yes, benefits of smoking cessation outlined and recommended Was critical care preformed (if so, how long)? @ -[No] Were there social determinants of health that impacted care today? How? (Homelessness, low income, unemployed, alcoholism, drug addiction, transportation, low edu. Level, literacy, decrease access to med. care, senior care, rehab)? @ -[No] Was there de-escalation of care discussed even if they declined (Discuss DNR or withdrawal of care, Hospice)? DNR status @ -[No] What co-morbidities impacted this encounter? (DM, HTN, Smoking, COPD, CAD, Cancer, CVA, ARF, Chemo, Hep., AIDS, mental health diagnosis, sleep apnea, morbid obesity)? @ -[None] Was patient admitted / discharged? Hospital course, mention meds given and route, prescriptions, significant lab abnormalities, going to OR and other pertinent info. @ -[This patient is 43-year-old woman who presents to have evaluation of chest pain. The workup here is unremarkable and the patient's physical exam is benign. Having said that she does have significant smoking history and I did recommend that the patient state to have further evaluation. The patient states that she is feeling better. The patient at this point declines that recommendation. She does agree to follow-up with cardiology. She will return should she develop symptoms. Undiagnosed new problem with uncertain prognosis? @ -[No] Drug Therapy requiring intensive monitoring for toxicity (Heparin, Nitro, Insulin, Cardizem)? @ -[No] Were any procedures done? @ -[No] Diagnosis/symptom? @ -[Acute chest pain Acute, or Chronic, or Acute on Chronic? @ -[Acute Uncomplicated (without systemic symptoms) or Complicated (systemic symptoms)? @ -[Uncomplicated Side effects of treatment? @ -[No] Exacerbation, Progression, or Severe Exacerbation? @ -[No] Poses a threat to life or bodily function? How? (Chest pain, [place], [place], pneumonia, PE, COPD, DKA, ARF, appy, cholecystitis, CVA, Diverticulitis, Homicidal, Suicidal, threat to staff... and all critical care pts) @ -[Yes, given the patient's risk factors, there is chance that the chest pain is cardiac in etiology and there is risk of progression to [place] or , the patient will follow with cardiology. She will return if symptoms recur (Devin Malone) Disposition <Dariel Goldstein - Last Filed: 08/13/23 23:02> Is patient prescribed a controlled substance at d/c from ED?: No <Devin Malone - Last Filed: 08/14/23 04:51> Clinical Impression: Chest pain Disposition: LEFT AGAINST MEDICAL ADVICE Condition: Good Instructions (If sedation given, give patient instructions): Chest Pain (ED) Referrals: Bhanu Levy MD [Primary Care Provider] - 1-2 days Milton Schafer MD [STAFF PHYSICIAN] - 1-2 days
[2023-08-14] MEDS ORDERED: IBUPROFEN 600 MG TAB PO STA (00:10)
[2023-08-14] MEDS ORDERED: ACETAMINOPHEN TAB 325 MG TAB PO STA (00:10)
[2023-08-14 01:46] VITALS: BP 127/86; PULSE 68; TEMP 98.6
== END 2023-08-14 01:22 | disposition left against medical advice (07) ==
LOC: EC 20:03
DX: R07.89 Other chest pain (principal); I10 Essential (primary) hypertension; M19.90 Unspecified osteoarthritis, unspecified site; F41.9 Anxiety disorder, unspecified; F32.A Depression, unspecified; F17.200 Nicotine dependence, unspecified, uncomplicated; Z79.1 Long term (current) use of non-steroidal anti-inflammatories (NSAID); Z79.899 Other long term (current) drug therapy; Z88.0 Allergy status to penicillin; Z88.2 Allergy status to sulfonamides; Z91.040 Latex allergy status; Z88.6 Allergy status to analgesic agent; Z88.1 Allergy status to other antibiotic agents; Z88.8 Allergy status to other drugs, medicaments and biological substances; Z20.822 Contact with and (suspected) exposure to COVID-19; Z53.29 Procedure and treatment not carried out because of patient's decision for other reasons
CPT/HCPCS: 36415; 71046; 80053; 83735; 84484; 85025; 85379; 85610; 85730; 87636; 93005; 99285

== ENCOUNTER → 2023-12-07 | Outpatient (CLI) | payer OTHER ==
--- NOTE | 2023-12-11 11:14 | MM ---
Reason for Exam: Screening (asymptomatic). Baseline mammogram. Patient History: Menarche at age 9. First Full-Term at age 34. Late child-bearing (after 30). Perimenopausal. Risk Values: Whit 5 year model risk: 1.2%. NCI Lifetime model risk: 14.2%. Prior Study Comparison: Patient's first Mammogram. Tissue Density: The breasts are heterogeneously dense, which may obscure small masses. Findings: Analyzed By CAD. Asymmetries in the bilateral breasts in the upper aspect middle depth on MLO views and lateral aspect on LCC and anterior middle depth on RCC. Overall Assessment: Incomplete: need additional imaging evaluation, BI-RAD 0 Management: Diagnostic Mammogram of both breasts. [facility] will attempt to contact patient to return for supplemental views and ultrasound if indicated. Patient should continue monthly self-breast exams. A clinical breast exam by your physician is recommended on an annual basis. This exam should not preclude additional follow-up of suspicious palpable abnormalities. Note on Whit scores and lifetime risk: 1. A Whit score greater than 3% is considered moderate risk. If this is the case, consider specialist referral to assess eligibility for a risk reducing agent. 2. If overall lifetime risk for the development of breast cancer is 20% or higher, the patient may qualify for future screening with alternating mammogram and breast MRI. Electronically signed and approved by: Jr Moran DO
== END | disposition home or self-care (01) ==
LOC: RADMAMWWP 09:37
PROVIDERS: ATTEND Internal Medicine
DX: Z12.31 Encounter for screening mammogram for malignant neoplasm of breast (principal)
CPT/HCPCS: 77067

== ENCOUNTER 2023-12-08 14:34 | Emergency (ER) | payer OTHER ==
--- NOTE | 2023-12-08 14:48 | ED ---
General Adult HPI - General Chief complaint: Back Pain/Injury Stated complaint: back pain Time Seen by Provider: 12/08/23 14:40 Source: patient, RN notes reviewed Mode of arrival: ambulatory Limitations: no limitations - History of Present Illness Initial comments: Patient is a 43-year-old female present to the emergency department with concerns for muscle spasms. Patient has fibromyalgia with chronic pain. Patient does have history of similar symptoms multiple times previously. Patient states discomfort is mostly left thoracic back. Patient states it also is causing her to have a migraine headache. Patient also has chronic migraine headaches that feel similar to this. Symptom started when she woke this morning. Symptoms have slowly progressively worsened since that time. Symptoms worsened by movement and deep breaths. - Related Data Home Medications Medication Instructions Recorded Confirmed Losartan Potassium 100 mg PO HS 01/27/20 10/26/22 tiZANidine [Zanaflex] 4 mg PO TID PRN 01/27/20 10/26/22 diazePAM [Valium] 2 mg PO HS 11/14/20 10/26/22 Furosemide [Lasix] 20 mg PO BID PRN 12/06/21 10/26/22 Omeprazole 20 mg PO HS 12/06/21 10/26/22 Potassium Chloride ER [K-Dur 10] 10 meq PO DAILY PRN 12/06/21 10/26/22 Verapamil HCl [Verapamil ER] 120 mg PO HS 12/06/21 10/26/22 Desvenlafaxine Succinate [Pristiq 50 mg PO HS 10/26/22 10/26/22 ER] Magnesium Chloride [Slow-Mag] 64 mg PO DAILY 10/26/22 10/26/22 Previous Rx's Medication Instructions Recorded Diclofenac Sodium [Voltaren] 75 mg PO BID PRN #15 tab 10/26/22 HYDROcodone/APAP 5-325MG [[place] 1 tab PO Q6HR PRN 3 Days #12 tab 10/26/22 5-325] Nitrofurantoin Monohyd/M-Cryst 100 mg PO Q12HR #10 cap 05/23/23 [Macrobid] Allergies Allergy/AdvReac Type Severity Reaction Status Date / Time Penicillins Allergy Intermediate Rash/Hives Verified 12/08/23 14:36 very severe baclofen Allergy Rash/Hives Verified 12/08/23 14:36 clarithromycin [From Biaxin] Allergy Rash/Hives Verified 12/08/23 14:36 doxycycline [From Vibramycin] Allergy Rash/Hives Verified 12/08/23 14:36 latex Allergy Rash/Hives Verified 12/08/23 14:36 levofloxacin [From Levaquin] Allergy Rash/Hives Verified 12/08/23 14:36 metoclopramide [From Reglan] Allergy Rash/Hives Verified 12/08/23 14:36 nalbuphine [From Nubain] Allergy Unknown Verified 12/08/23 14:36 sulfamethoxazole Allergy Swelling, Verified 12/08/23 14:36 [From Bactrim] severe hives sumatriptan [From Imitrex] Allergy increases Verified 12/08/23 14:36 blood pressure trimethoprim [From Bactrim] Allergy Swelling, Verified 12/08/23 14:36 severe hives Review of Systems ROS Statement: Those systems with pertinent positive or pertinent negative responses have been documented in the HPI. ROS Other: All systems not noted in ROS Statement are negative. Constitutional: Denies: fever Eyes: Denies: eye pain ENT: Denies: ear pain Respiratory: Denies: cough Cardiovascular: Denies: chest pain Endocrine: Denies: fatigue Musculoskeletal: Reports: as per HPI Past Medical History Past Medical History: Fibromyalgia, Hypertension, Osteoarthritis (OA) Additional Past Medical History / Comment(s): migraines, chronic lower back pain History of Any Multi-Drug Resistant Organisms: None Reported Past Surgical History: Appendectomy, Orthopedic Surgery, Tonsillectomy Additional Past Surgical History / Comment(s): sinus surgery, lt wrist SX, vulvadectomy Past Anesthesia/Blood Transfusion Reactions: No Reported Reaction Past Psychological History: Anxiety, Depression Smoking Status: Current every day smoker Past Alcohol Use History: None Reported Past Drug Use History: None Reported - Past Family History Mother Family Medical History: No Reported History General Exam Limitations: no limitations General appearance: alert, in no apparent distress Head exam: Present: normocephalic Eye exam: Present: normal appearance, PERRL ENT exam: Present: normal oropharynx Neck exam: Present: normal inspection Respiratory exam: Present: normal lung sounds bilaterally Cardiovascular Exam: Present: regular rate, normal rhythm GI/Abdominal exam: Present: soft. Absent: tenderness Extremities exam: Present: normal inspection. Absent: pedal edema, calf tenderness Neurological exam: Present: alert, CN II-XII intact. Absent: motor sensory deficit Expanded Neurological exam: Present: protecting the airway Speech: Present: fluid speech Cranial nerves: EOM's Intact: Normal Motor strength exam: RUE: 5, LUE: 5, RLE: 5, LLE: 5 Eye Response: (4) open spontaneously Motor Response: (6) obeys commands Verbal Response: (5) oriented Psychiatric exam: Present: normal affect, normal mood Skin exam: Present: normal color Course Vital Signs 12/08/23 14:34 Temperature 97.4 F L Pulse Rate 73 Respiratory 18 Rate Blood Pressure 124/85 O2 Sat by Pulse 99 Oximetry Medical Decision Making - Medical Decision Making Was pt. sent in by a medical professional or institution (, PA, DEPORTATION EXAMINER, urgent care, hospital, or assisted...) When possible be specific @ -No Did you speak to anyone other than the patient for history (EMS, parent, family, police, friend...)? What history was obtained from this source @ -No Did you review nursing and triage notes (agree or disagree)? Why? @ -I reviewed and agree with nursing and triage notes Were old charts reviewed (outside hosp., previous admission, EMS record, old EKG, old radiological studies, urgent care reports/EKG's, assisted records)? Report findings @ -No old charts were reviewed Differential Diagnosis (chest pain, altered mental status, abdominal pain women, abdominal pain men, vaginal bleeding, weakness, fever, dyspnea, syncope, headache, dizziness, GI bleed, back pain, seizure, CVA, palpatations, mental health, musculoskeletal)? @ -Differential Back Pain: Strain, zoster, cauda equina syndrome, epidural abscess, vertebral osteomyelitis, discitis, fracture, subluxation, disc herniation, DJD, spinal stenosis, dissection, AAA, pancreatitis, peptic ulcer disease, pyelonephritis, kidney stone, this is not meant to be an all-inclusive list. EKG interpreted by me (3pts min.). @ -As above X-rays interpreted by me (1pt min.). @ -None done CT interpreted by me (1pt min.). @ -None done U/S interpreted by me (1pt. min.). @ -None done What testing was considered but not performed or refused? (CT, X-rays, U/S, labs)? Why? @ -Considered imaging however patient states he is a chronic symptom What meds were considered but not given or refused? Why? @ -None Did you discuss the management of the patient with other professionals (professionals i.e. , PA, DEPORTATION EXAMINER, lab, RT, psych nurse, social work faculty member, cosmetology professor, teacher, aerospace engineer officer armament, patient case coordinator)? Give summary @ -No Was smoking cessation discussed for >3mins.? @ -No Was critical care preformed (if so, how long)? @ -No Were there social determinants of health that impacted care today? How? (Homelessness, low income, unemployed, alcoholism, drug addiction, transportation, low edu. Level, literacy, decrease access to med. care, skilled nursing, rehab)? @ -No Was there de-escalation of care discussed even if they declined (Discuss DNR or withdrawal of care, Hospice)? DNR status @ -No What co-morbidities impacted this encounter? (DM, HTN, Smoking, COPD, CAD, Cancer, CVA, ARF, Chemo, Hep., AIDS, mental health diagnosis, sleep apnea, morbid obesity)? @ -None Was patient admitted / discharged? Hospital course, mention meds given and route, prescriptions, significant lab abnormalities, going to OR and other pertinent info. @ -Patient presents with chronic pain and muscle spasm as well as chronic migraine. Patient request pain relief. Patient will be provided medication and discharged to follow-up with her primary Undiagnosed new problem with uncertain prognosis? @ -No Drug Therapy requiring intensive monitoring for toxicity (Heparin, Nitro, Insulin, Cardizem)? @ -No Were any procedures done? @ -No Diagnosis/symptom? @ -Back spasm, headache Acute, or Chronic, or Acute on Chronic? @ -Acute on chronic, acute on chronic Uncomplicated (without systemic symptoms) or Complicated (systemic symptoms)? @ -Default Side effects of treatment? @ -No Exacerbation, Progression, or Severe Exacerbation? @ -No Poses a threat to life or bodily function? How? (Chest pain, [place], [place], pneumonia, PE, COPD, DKA, ARF, appy, cholecystitis, CVA, Diverticulitis, Homicidal, Suicidal, threat to staff... and all critical care pts) @ -No Disposition Clinical Impression: Muscle spasm, Headache Disposition: HOME SELF-CARE Condition: Stable Additional Instructions: No driving today. Please follow-up with your primary care physician beginning of the week. Return for difficulty breathing, weakness or confusion, fevers, worsening or changing symptoms or other concerns. Is patient prescribed a controlled substance at d/c from ED?: No Referrals: Bhanu Levy MD [Primary Care Provider] - 1-2 days Time of Disposition: 14:48
[2023-12-08] MEDS: HYDROmorphone 1 MG/ML 1 ML SYRINGE IM STA (14:59)
[2023-12-08] MEDS: KETOROLAC 15 MG/ML 1 ML VIAL IM STA (15:00)
[2023-12-08 15:16] VITALS: RESP 18
[2023-12-08 16:05] VITALS: BP 113/74; PULSE 63; TEMP 98.2
== END 2023-12-08 15:33 | disposition home or self-care (01) ==
LOC: EC 14:34
DX: M62.838 Other muscle spasm (principal); R51.9 Headache, unspecified; F17.200 Nicotine dependence, unspecified, uncomplicated; Z88.0 Allergy status to penicillin; Z88.2 Allergy status to sulfonamides; Z88.1 Allergy status to other antibiotic agents; Z88.8 Allergy status to other drugs, medicaments and biological substances; Z91.040 Latex allergy status
CPT/HCPCS: 99283; 96372 ×2; J1170; J1885

== ENCOUNTER → 2023-12-24 | Outpatient (CLI) | payer OTHER ==
--- NOTE | 2023-12-24 14:21 | MM ---
Reason for Exam: Additional evaluation requested from prior study. Last screening mammogram was performed less than 1 month ago. Patient History: Menarche at age 9. First Full-Term at age 34. Late child-bearing (after 30). Perimenopausal. Risk Values: Whit 5 year model risk: 1.2%. NCI Lifetime model risk: 14.2%. Prior Study Comparison: 12/07/2023 Bilateral MG screening mammo w CAD, [facility]. Tissue Density: The breasts are heterogeneously dense, which may obscure small masses. Findings: Analyzed By CAD. Areas of asymmetric density superior right MLO view do not persist on additional views. Tiny compatible with superimposition shadow. Areas of asymmetric density on the left also become less defined. Given the appearance on screening exam, precautionary 6 month follow up recommended. Overall Assessment: Probably benign, BI-RAD 3 Management: Diagnostic Mammogram of the left breast in 6 months. Results were given to the patient verbally at the time of exam. Patient should continue monthly self-breast exams. A clinical breast exam by your physician is recommended on an annual basis. This exam should not preclude additional follow-up of suspicious palpable abnormalities. Note on Whit scores and lifetime risk: 1. A Whit score greater than 3% is considered moderate risk. If this is the case, consider specialist referral to assess eligibility for a risk reducing agent. 2. If overall lifetime risk for the development of breast cancer is 20% or higher, the patient may qualify for future screening with alternating mammogram and breast MRI. Electronically signed and approved by: Nehal Mckeon M.D. Radiologist
== END | disposition home or self-care (01) ==
LOC: RADMAMWWP 13:36
PROVIDERS: ATTEND Internal Medicine
DX: R92.333 Mammographic heterogeneous density, bilateral breasts (principal)
CPT/HCPCS: 77066; G0279; 77062

== ENCOUNTER 2024-01-27 11:55 | Emergency (ER) | payer OTHER ==
[2024-01-27 13:21] LABS: Appearance,Urine Clear (Clear); Bacteria,Urine Occasional /hpf; Bilirubin,Urine Negative (Negative); Blood,Urine Trace (Negative); Color,Urine Light Yellow; Glucose,Urine (UA) Negative (Negative); Ketones,Urine Negative (Negative); Leukocyte Esterase,Urine Negative (Negative); Mucus,Urine Rare /hpf; Nitrite,Urine Negative (Negative); PH, Urine 6.5 (5.0-8.0); Protein,Urine Negative (Negative); RBC,Urine 6 /hpf (0-5); Specific Gravity,Urine 1.022 (1.001-1.035); Squamous Epithelial Cell,Urine 5 /hpf (0-4); Urobilinogen,Urine <2.0 mg/dL (<2.0); WBC,Urine <1 /hpf (0-5)
--- NOTE | 2024-01-27 13:32 | ED ---
General Adult HPI - General Chief complaint: Abdominal Pain Stated complaint: Abd pain Time Seen by Provider: 01/27/24 13:04 Source: patient Mode of arrival: ambulatory Limitations: no limitations - History of Present Illness Initial comments: Dictation was produced using Glimpse dictation software. please excuse any grammatical, word or spelling errors. Chief Complaint: 44-year-old female presents with left lower quadrant abdominal pain History of Present Illness: Patient is a 44-year-old female with history of chronic pain. Presents to the emergency department for 2 weeks of left lower quadrant abdominal cramping. Patient states that she also has history of kidney stones that does not feel like her usual kidney stone pain. She has been fol lowing up with her primary care doctor regarding this. She is allegedly scheduled for an ultrasound. Patient has had fever, chills or night sweats. She states the pain is constant. Denies any urinary symptoms. Denies any constitutional symptoms. The ROS documented in this emergency department record has been reviewed and confirmed by me. Those systems with pertinent positive or negative responses have been documented in the HPI. All other systems are other negative and/or noncontributory. - Related Data Home Medications Medication Instructions Recorded Confirmed Losartan Potassium 100 mg PO HS 01/27/20 10/26/22 tiZANidine [Zanaflex] 4 mg PO TID PRN 01/27/20 10/26/22 diazePAM [Valium] 2 mg PO HS 11/14/20 10/26/22 Furosemide [Lasix] 20 mg PO BID PRN 12/06/21 10/26/22 Omeprazole 20 mg PO HS 12/06/21 10/26/22 Potassium Chloride ER [K-Dur 10] 10 meq PO DAILY PRN 12/06/21 10/26/22 Verapamil HCl [Verapamil ER] 120 mg PO HS 12/06/21 10/26/22 Desvenlafaxine Succinate [Pristiq 50 mg PO HS 10/26/22 10/26/22 ER] Magnesium Chloride [Slow-Mag] 64 mg PO DAILY 10/26/22 10/26/22 Previous Rx's Medication Instructions Recorded Diclofenac Sodium [Voltaren] 75 mg PO BID PRN #15 tab 10/26/22 HYDROcodone/APAP 5-325MG [Upperco 1 tab PO Q6HR PRN 3 Days #12 tab 10/26/22 5-325] Nitrofurantoin Monohyd/M-Cryst 100 mg PO Q12HR #10 cap 05/23/23 [Macrobid] HYDROcodone/APAP 5-325MG [Upperco 1 tab PO Q6HR PRN 3 Days #12 tab 01/27/24 5-325] Allergies Allergy/AdvReac Type Severity Reaction Status Date / Time Penicillins Allergy Intermediate Rash/Hives Verified 12/08/23 14:36 very severe baclofen Allergy Rash/Hives Verified 12/08/23 14:36 clarithromycin [From Biaxin] Allergy Rash/Hives Verified 12/08/23 14:36 doxycycline [From Vibramycin] Allergy Rash/Hives Verified 12/08/23 14:36 latex Allergy Rash/Hives Verified 12/08/23 14:36 levofloxacin [From Levaquin] Allergy Rash/Hives Verified 12/08/23 14:36 metoclopramide [From Reglan] Allergy Rash/Hives Verified 12/08/23 14:36 nalbuphine [From Nubain] Allergy Unknown Verified 12/08/23 14:36 sulfamethoxazole Allergy Swelling, Verified 12/08/23 14:36 [From Bactrim] severe hives sumatriptan [From Imitrex] Allergy increases Verified 12/08/23 14:36 blood pressure trimethoprim [From Bactrim] Allergy Swelling, Verified 12/08/23 14:36 severe hives Review of Systems ROS Statement: Those systems with pertinent positive or pertinent negative responses have been documented in the HPI. ROS Other: All systems not noted in ROS Statement are negative. Past Medical History Past Medical History: Fibromyalgia, Hypertension, Osteoarthritis (OA) Additional Past Medical History / Comment(s): migraines, chronic lower back pain History of Any Multi-Drug Resistant Organisms: None Reported Past Surgical History: Appendectomy, Orthopedic Surgery, Tonsillectomy Additional Past Surgical History / Comment(s): sinus surgery, lt wrist SX, vulvadectomy Past Anesthesia/Blood Transfusion Reactions: No Reported Reaction Past Psychological History: Anxiety, Depression Smoking Status: Current every day smoker Past Alcohol Use History: None Reported Past Drug Use History: None Reported - Past Family History Mother Family Medical History: No Reported History General Exam - General Exam Comments Initial Comments: PHYSICAL EXAM: General Impression: Alert and oriented x3, not in acute distress HEENT: Normocephalic atraumatic, extra-ocular movements intact, pupils equal and reactive to light bilaterally, mucous membranes moist. Cardiovascular: Heart regular rate and rhythm Chest: Able to complete full sentences, no retractions, no tachypnea Abdomen: abdomen soft, left lower quadrant palpatory tenderness, non-distended, no organomegaly Musculoskeletal: Pulses present and equal in all extremities, no peripheral edema Motor: no focal deficits noted Neurological: CN II-XII grossly intact, no focal motor or sensory deficits noted Skin: Intact with no visualized rashes Psych: Normal affect and mood Limitations: no limitations Course Vital Signs 01/27/24 01/27/24 12:07 14:46 Temperature 97.9 F 97.7 F Pulse Rate 78 61 Respiratory 16 14 Rate Blood Pressure 138/99 158/97 O2 Sat by Pulse 98 100 Oximetry Medical Decision Making - Medical Decision Making Was pt. sent in by a medical professional or institution (, PA, REGIONAL COORDINATOR, urgent care, hospital, or senior care...) When possible be specific @ -No Did you speak to anyone other than the patient for history (EMS, parent, family, police, friend...)? What history was obtained from this source @ -No Did you review nursing and triage notes (agree or disagree)? Why? @ -I reviewed and agree with nursing and triage notes Were old charts reviewed (outside hosp., previous admission, EMS record, old EKG, old radiological studies, urgent care reports/EKG's, senior care records)? Report findings @ -No old charts were reviewed Differential Diagnosis (chest pain, altered mental status, abdominal pain women, abdominal pain men, vaginal bleeding, musculoskeletal, weakness, fever, dyspnea, syncope, headache, dizziness, GI bleed, back pain, seizure, CVA, palpatations, mental health)? @ -Differential Abdominal Pain Women: Appendicitis, Cholecystitis, diverticulosis, ischemic bowel, pancreatitis, hepatitis, UTI, gastroenteritis, AAA, incarcerated hernia, bowel obstruction, constipation, inflammatory bowel, hepatitis, peptic ulcer disease, splenic infarction, perforated viscus, vulvitis, ovarian torsion, PID, kidney stone, placenta abruption, this is not meant to be an all-inclusive list EKG interpreted by me (3pts min.). @ -None done X-rays interpreted by me (1pt min.). @ -None done CT interpreted by me (1pt min.). @ -CT of the ab pelvis with contrast shows no acute processes. U/S interpreted by me (1pt. min.). @ -None done What testing was considered but not performed or refused? (CT, X-rays, U/S, labs)? Why? @ -None What meds were considered but not given or refused? Why? @ -None Was smoking cessation discussed for >3mins.? @ -No Were there social determinants of health that impacted care today? How? (Homelessness, low income, unemployed, alcoholism, drug addiction, transportation, low edu. Level, literacy, decrease access to med. care, nursing home, rehab)? @ -No Was there de-escalation of care discussed even if they declined (Discuss DNR or withdrawal of care, Hospice)? DNR status @ -No What co-morbidities impacted this encounter? (DM, HTN, Smoking, COPD, CAD, Cancer, CVA, ARF, Chemo, Hep., AIDS, mental health diagnosis, sleep apnea, morbi d obesity)? @ -Chronic pain Was patient admitted / discharged? Hospital course, mention meds given and route, prescriptions, significant lab abnormalities, going to OR and other pertinent info. @ -44-year-old female with acute on chronic abdominal pain. Vital signs stable. Laboratory evaluation is unremarkable. Patient well-appearing at the bedside she does have palpable christiano left lower quadrant abdominal tenderness. CT scan of the ab pelvis is unremarkable. Patient given symptom control with IV analgesics. Patient discharged with prescription for Upperco. She has appointment there outpatient doctors coming up she is told to address her symptoms with them. Return precautions discussed. Patient discharged. Did you discuss the management of the patient with other professionals (prof kaye i.e. , PA, REGIONAL COORDINATOR, lab, RT, psych nurse, social sciences lecturer, telecommunication engineer, teacher, real estate loan officer, case mgr)? Give summary @ -No Was critical care preformed (if so, how long)? @ -No Undiagnosed new problem with uncertain prognosis? @ -No Drug Therapy requiring intensive monitoring for toxicity (Heparin, Nitro, Insulin, Cardizem)? @ -No Were any procedures done? @ -No Diagnosis/symptom? Acute, or Chronic, or Acute on Chronic? Uncomplicated (without systemic symptoms) or Complicated (systemic symptoms)? @ -Abdominal pain, no high risk features Side effects of treatment? @ -No Exacerbation, Progression, or Severe Exacerbation? @ -No Poses a threat to life or bodily function? How? (Chest pain, [place], [place], pneumonia, PE, COPD, DKA, ARF, appy, cholecystitis, CVA, Diverticulitis, Homicidal, Suicidal, threat to staff... and all critical care pts) @ -No - Lab Data Result diagrams: 01/27/24 14:03 01/27/24 14:03 Lab Results 01/27/24 01/27/24 01/27/24 Range/Units 12:44 14:03 14:03 WBC 11.2 H (3.8-10.6) k/uL RBC 5.09 (3.80-5.40) m/uL Hgb 15.8 (11.4-16.0) gm/dL Hct 47.6 H (34.0-46.0) % MCV 93.4 (80.0-100.0) fL MCH 31.0 (25.0-35.0) pg MCHC 33.2 (31.0-37.0) g/dL RDW 12.9 (11.5-15.5) % Plt Count 341 (150-450) k/uL MPV 7.6 Neutrophils % 66 % Lymphocytes % 25 % Monocytes % 5 % Eosinophils % 2 % Basophils % 1 % Neutrophils # 7.4 (1.3-7.7) k/uL Lymphocytes # 2.8 (1.0-4.8) k/uL Monocytes # 0.6 (0-1.0) k/uL Eosinophils # 0.2 (0-0.7) k/uL Basophils # 0.1 (0-0.2) k/uL Sodium 138 (137-145) mmol/L Potassium 4.9 (3.5-5.1) mmol/L Chloride 106 (98-107) mmol/L Carbon Dioxide 24 (22-30) mmol/L Anion Gap 8 mmol/L BUN 12 (7-17) mg/dL Creatinine 0.69 (0.52-1.04) mg/dL Est GFR (CKD-EPI)AfAm >90 (>60 ml/min/1.73 sqM) Est GFR (CKD-EPI)NonAf >90 (>60 ml/min/1.73 sqM) Glucose 94 (74-99) mg/dL Plasma Lactic Acid Boom (0.7-2.0) mmol/L Calcium 10.0 (8.4-10.2) mg/dL Total Bilirubin 0.5 (0.2-1.3) mg/dL AST 25 (14-36) U/L ALT 24 (4-34) U/L Alkaline Phosphatase 74 (38-126) U/L Total Protein 8.1 (6.3-8.2) g/dL Albumin 4.7 (3.5-5.0) g/dL Lipase 66 (23-300) U/L Urine Color Light Yellow Urine Appearance Clear (Clear) Urine pH 6.5 (5.0-8.0) Ur Specific [place] 1.022 (1.001-1.035) Urine Protein Negative (Negative) Urine Glucose (UA) Negative (Negative) Urine Ketones Negative (Negative) Urine Blood Trace H (Negative) Urine Nitrite Negative (Negative) Urine Bilirubin Negative (Negative) Urine Urobilinogen <2.0 (<2.0) mg/dL Ur Leukocyte Esterase Negative (Negative) Urine RBC 6 H (0-5) /hpf Urine WBC <1 (0-5) /hpf Ur Squamous Epith Cells 5 H (0-4) /hpf Urine Bacteria Occasional H (None) /hpf Urine Mucus Rare H (None) /hpf 01/27/24 Range/Units 14:03 WBC (3.8-10.6) k/uL RBC (3.80-5.40) m/uL Hgb (11.4-16.0) gm/dL Hct (34.0-46.0) % MCV (80.0-100.0) fL MCH (25.0-35.0) pg MCHC (31.0-37.0) g/dL RDW (11.5-15.5) % Plt Count (150-450) k/uL MPV Neutrophils % % Lymphocytes % % Monocytes % % Eosinophils % % Basophils % % Neutrophils # (1.3-7.7) k/uL Lymphocytes # (1.0-4.8) k/uL Monocytes # (0-1.0) k/uL Eosinophils # (0-0.7) k/uL Basophils # (0-0.2) k/uL Sodium (137-145) mmol/L Potassium (3.5-5.1) mmol/L Chloride (98-107) mmol/L Carbon Dioxide (22-30) mmol/L Anion Gap mmol/L BUN (7-17) mg/dL Creatinine (0.52-1.04) mg/dL Est GFR (CKD-EPI)AfAm (>60 ml/min/1.73 sqM) Est GFR (CKD-EPI)NonAf (>60 ml/min/1.73 sqM) Glucose (74-99) mg/dL Plasma Lactic Acid Boom 1.0 (0.7-2.0) mmol/L Calcium (8.4-10.2) mg/dL Total Bilirubin (0.2-1.3) mg/dL AST (14-36) U/L ALT (4-34) U/L Alkaline Phosphatase (38-126) U/L Total Protein (6.3-8.2) g/dL Albumin (3.5-5.0) g/dL Lipase (23-300) U/L Urine Color Urine Appearance (Clear) Urine pH (5.0-8.0) Ur Specific [place] (1.001-1.035) Urine Protein (Negative) Urine Glucose (UA) (Negative) Urine Ketones (Negative) Urine Blood (Negative) Urine Nitrite (Negative) Urine Bilirubin (Negative) Urine Urobilinogen (<2.0) mg/dL Ur Leukocyte Esterase (Negative) Urine RBC (0-5) /hpf Urine WBC (0-5) /hpf Ur Squamous Epith Cells (0-4) /hpf Urine Bacteria (None) /hpf Urine Mucus (None) /hpf Disposition Clinical Impression: Abdominal pain Disposition: HOME SELF-CARE Condition: Good Instructions (If sedation given, give patient instructions): Abdominal Pain (ED) Prescriptions: HYDROcodone/APAP 5-325MG [Upperco 5-325] 1 tab PO Q6HR PRN 3 Days #12 tab PRN Reason: Severe Pain Is patient prescribed a controlled substance at d/c from ED?: No Referrals: Bhanu Levy MD [Primary Care Provider] - 1-2 days Time of Disposition: 15:47
[2024-01-27 14:14] LABS: Basophils # (A) 0.1 k/uL (0-0.2); Basophils % (A) 1 %; Eosinophils # (A) 0.2 k/uL (0-0.7); Eosinophils % (A) 2 %; HCT 47.6 % (34.0-46.0); HGB 15.8 gm/dL (11.4-16.0); Lymphocytes # (A) 2.8 k/uL (1.0-4.8); Lymphocytes % (A) 25 %; MCHC 33.2 g/dL (31.0-37.0); MCV 93.4 fL (80.0-100.0); Mean Platelet Volume 7.6; Monocytes # (A) 0.6 k/uL (0-1.0); Monocytes % (A) 5 %; Neutrophils # (A) 7.4 k/uL (1.3-7.7); Neutrophils % (A) 66 %; Platelet Count 341 k/uL (150-450); RBC 5.09 m/uL (3.80-5.40); RDW 12.9 % (11.5-15.5); WBC 11.2 k/uL (3.8-10.6)
[2024-01-27 14:26] LABS: ALT 24 U/L (4-34); AST 25 U/L (14-36); African American GFR (CKD) >90 (>60 ml/min/1.73 sqM); Albumin 4.7 g/dL (3.5-5.0); Alkaline Phosphatase 74 U/L (38-126); Anion Gap 8 mmol/L; Blood Urea Nitrogen 12 mg/dL (7-17); Carbon Dioxide 24 mmol/L (22-30); Chloride 106 mmol/L (98-107); Glucose 94 mg/dL (74-99); Lipase 66 U/L (23-300); Non-African American GFR(CKD) >90 (>60 ml/min/1.73 sqM); Potassium 4.9 mmol/L (3.5-5.1); Sodium 138 mmol/L (137-145); Total Bilirubin 0.5 mg/dL (0.2-1.3); Total Protein 8.1 g/dL (6.3-8.2)
[2024-01-27] MEDS: MORPHINE SULFATE 4 MG/ML SYRINGE IV STA (14:40)
[2024-01-27 14:50] VITALS: RESP 14
--- NOTE | 2024-01-27 15:39 | CT ---
EXAMINATION TYPE: CT abdomen pelvis w con CT DLP: 815.2 mGycm, Automated exposure control for dose reduction was used. DATE OF EXAM: 01/27/2024 3:19 PM COMPARISON: 05/23/2023 CLINICAL INDICATION:Female, 44 years old with history of flank pain; Left lower quad abdomen pain for 2 weeks, cramping pain. No n/v/d. No fever. No relief with 2 vicodins and 800 mg motrin. TECHNIQUE: Axial CT abdomen pelvis w con;Sagittal and coronal reformats were created on a separate w orkstation. Contrast used:100 ml mL of Isovue 300 with IV Contrast, (none if empty) Oral contrast used: without Oral Contrast (none if empty) FINDINGS: LOWER CHEST: Unremarkable ABDOMEN LIVER: Focal fatty infiltration adjacent to the falciform ligament in segment IVb GALLBLADDER AND BILE DUCTS: Unremarkable. PANCREAS: Unremarkable. SPLEEN: Unremarkable. ADRENAL GLANDS: Unremarkable. KIDNEYS AND URETERS: No evidence of hydronephrosis or renal calculus. The ureters are unremarkable. PELVIS BLADDER: Unremarkable REPRODUCTIVE: Unremarkable. ABDOMEN & PELVIS STOMACH AND BOWEL: No evidence of bowel obstruction. The appendix appears surgically absent. PERITONEUM/RETROPERITONEUM: No evidence of pneumoperitoneum or free fluid. VASCULATURE: No evidence of aortic aneurysm. MUSCULOSKELETAL: No acute osseous abnormalities LYMPH NODES: No gross evidence for lymphadenopathy. SOFT TISSUE/ABDOMINAL WALL: Unremarkable IMPRESSION: No evidence for acute left lower quadrant process to explain the patient's pain. No diverticulitis, o bstructive uropathy or renal calculus. No diverticula definitively visualized in left lower quadrant.
[2024-01-27] MEDS: HYDROmorphone 1 MG/ML 1 ML SYRINGE IVP STA (15:50)
[2024-01-27 16:21] VITALS: BP 142/89; PULSE 65; TEMP 98.1
== END 2024-01-27 16:41 | disposition home or self-care (01) ==
LOC: EC 11:55
DX: R10.32 Left lower quadrant pain (principal); F17.200 Nicotine dependence, unspecified, uncomplicated; Z88.0 Allergy status to penicillin; Z88.2 Allergy status to sulfonamides; Z91.040 Latex allergy status; Z88.8 Allergy status to other drugs, medicaments and biological substances; Z88.1 Allergy status to other antibiotic agents
CPT/HCPCS: 36415; 80053; 83605; 83690; 85025; 81001; 74177; 99284; 96374; 96375; J2270; J1170; Q9967

== ENCOUNTER → 2024-02-04 | Outpatient (CLI) | payer OTHER ==
--- NOTE | 2024-02-06 12:34 | US ---
EXAMINATION TYPE: US kidneys/renal and bladder DATE OF EXAM: 02/04/2024 COMPARISON: NONE CLINICAL INDICATION: Female, 44 years old with history of R10.9 RIGHT FLANK PAIN; right flank pain EXAM MEASUREMENTS: Right Kidney: 10.3 x 4.5 x 4.3 cm Left Kidney: 11.6 x 3.9 x 4.6 cm Right Kidney: No hydronephrosis or masses seen Left Kidney: No hydronephrosis or masses seen Bladder: wnl Bilateral Jets seen: yes There is no evidence for hydronephrosis at this point in time. No nephrolithiasis is seen. No fabiano s are identified. The urinary bladder is anechoic. Bilateral ureteral jets are seen. IMPRESSION: Unremarkable study
== END | disposition home or self-care (01) ==
LOC: RADUSWWP 16:39
PROVIDERS: ATTEND Internal Medicine
DX: R10.9 Unspecified abdominal pain (principal)
CPT/HCPCS: 76770

== ENCOUNTER 2024-02-26 14:41 | Emergency (ER) | payer OTHER ==
[2024-02-26] MEDS ORDERED: MORPHINE SULFATE 4 MG/ML SYRINGE ONE ×2 (16:32→19:27)
[2024-02-26] MEDS ORDERED: KETOROLAC 15 MG/ML 1 ML VIAL ONE (16:32)
[2024-02-26] MEDS ORDERED: CLINDAMYCIN 150 MG CAP ONE (19:27)
--- NOTE | 2024-03-20 09:25 | US ---
EXAMINATION TYPE: US transvaginal DATE OF EXAM: 03/20/2024 COMPARISON: Ultrasound 12/06/2021 CLINICAL INDICATION: Female, 44 years old with history of Pain x 5-6 weeks, L > R; Hx Ovarian cysts a nd tubal ligation TECHNIQUE: Transvaginal sonographic images were ordered Date of LMP: Unknown EXAM MEASUREMENTS: Uterus: 7.8 x 3.3 x 3.6 cm Endometrial Stripe: 0.5 cm Right Ovary: 2.0 x 1.2 x 1.7 cm Left Ovary: 1.5 x 1.1 x 1.5 cm 1. Uterus: Anteverted ? Echogenic area with cystic center seen right uterine fundus = 1.4 x 1.1 x 1.1 cm 2. Endometrium: No specific abnormality. 3. Right Ovary: Limited visualization, WNL as visualized 4. Left Ovary: Limited visualization, WNL as visualized 5. Bilateral Adnexa: wnl 6. Posterior cul-de-sac: wnl IMPRESSION: 1. A rounded 1.4 cm echogenic lesion with central cystic area along the posterior right uterine fundu s. This has an intramural location. Etiology unclear. Some differential considerations include a dege nerating fibroid, uterine AVM, and adenomyoma. Consider .NET DEVELOPER referral for follow-up. Female pelvic MRI may better characterize. 2. Otherwise, no specific abnormality seen.
== END 2024-02-26 19:40 | disposition home or self-care (01) ==
LOC: EC 14:41
CPT/HCPCS: 76830; 81003; 96372; 99284

== ENCOUNTER 2025-02-10 21:45 | Emergency (ER) | payer OTHER ==
--- NOTE | 2025-02-10 22:41 | ED ---
General Adult HPI - General Chief complaint: Urogenital Stated complaint: Migraine,Flank Pain Time Seen by Provider: 02/10/25 22:11 Source: patient, RN notes reviewed Mode of arrival: ambulatory Limitations: no limitations - History of Present Illness Initial comments: 45-year-old female presents to the emergency department for evaluation of migraine headache and bilateral back pain. Patient notes that this has been going on for around a week. She states that she took her migraine medications without any relief. She states that her headache feels similar to migraines she has experienced in the past although she is usually able to get rid of it with her medications. Patient also reports urinary frequency. She reports pain in bilateral flanks. She denies any fever, chills. Denies hematuria. - Related Data Home Medications Medication Instructions Recorded Confirmed Losartan Potassium 100 mg PO HS 01/27/20 10/26/22 tiZANidine [Zanaflex] 4 mg PO TID PRN 01/27/20 10/26/22 diazePAM [Valium] 2 mg PO HS 11/14/20 10/26/22 Furosemide [Lasix] 20 mg PO BID PRN 12/06/21 10/26/22 Omeprazole 20 mg PO HS 12/06/21 10/26/22 Potassium Chloride ER [K-Dur 10] 10 meq PO DAILY PRN 12/06/21 10/26/22 Verapamil HCl [Verapamil ER] 120 mg PO HS 12/06/21 10/26/22 Desvenlafaxine Succinate [Pristiq 50 mg PO HS 10/26/22 10/26/22 ER] Magnesium Chloride [Slow-Mag] 64 mg PO DAILY 10/26/22 10/26/22 Previous Rx's Medication Instructions Recorded Diclofenac Sodium [Voltaren] 75 mg PO BID PRN #15 tab 10/26/22 HYDROcodone/APAP 5-325MG [[place] 1 tab PO Q6HR PRN 3 Days #12 tab 10/26/22 5-325] Nitrofurantoin Monohyd/M-Cryst 100 mg PO Q12HR #10 cap 05/23/23 [Macrobid] HYDROcodone/APAP 5-325MG [[place] 1 tab PO Q6HR PRN 3 Days #12 tab 01/27/24 5-325] Allergies Allergy/AdvReac Type Severity Reaction Status Date / Time Penicillins Allergy Intermediate Rash/Hives Verified 02/10/25 22:10 very severe baclofen Allergy Rash/Hives Verified 02/10/25 22:10 clarithromycin [From Biaxin] Allergy Rash/Hives Verified 02/10/25 22:10 doxycycline [From Vibramycin] Allergy Rash/Hives Verified 02/10/25 22:10 latex Allergy Rash/Hives Verified 02/10/25 22:10 levofloxacin [From Levaquin] Allergy Rash/Hives Verified 02/10/25 22:10 metoclopramide [From Reglan] Allergy Rash/Hives Verified 02/10/25 22:10 nalbuphine [From Nubain] Allergy Unknown Verified 02/10/25 22:10 Sulfa (Sulfonamide Allergy Swelling Verified 02/10/25 22:10 Antibiotics) sulfamethoxazole Allergy Swelling, Verified 02/10/25 22:10 [From Bactrim] severe hives sumatriptan [From Imitrex] Allergy increases Verified 02/10/25 22:10 blood pressure trimethoprim [From Bactrim] Allergy Swelling, Verified 02/10/25 22:10 severe hives Review of Systems ROS Statement: Those systems with pertinent positive or pertinent negative responses have been documented in the HPI. ROS Other: All systems not noted in ROS Statement are negative. Past Medical History Past Medical History: Fibromyalgia, Hypertension, Osteoarthritis (OA) Additional Past Medical History / Comment(s): migraines, chronic lower back pain History of Any Multi-Drug Resistant Organisms: None Reported Past Surgical History: Appendectomy, Hysterectomy, Orthopedic Surgery, Tonsillectomy Additional Past Surgical History / Comment(s): sinus surgery, lt wrist SX, vulvadectomy Past Anesthesia/Blood Transfusion Reactions: No Reported Reaction Past Psychological History: Anxiety, Depression Smoking Status: Current every day smoker Past Alcohol Use History: None Reported Past Drug Use History: Marijuana - Past Family History Mother Family Medical History: No Reported History General Exam Limitations: no limitations General appearance: alert, in no apparent distress Head exam: Present: atraumatic, normocephalic, normal inspection Eye exam: Present: normal appearance, PERRL, EOMI. Absent: scleral icterus, conjunctival injection, periorbital swelling ENT exam: Present: normal exam, normal oropharynx, mucous membranes moist Neck exam: Present: normal inspection, full ROM. Absent: tenderness, meningismus, lymphadenopathy Respiratory exam: Present: normal lung sounds bilaterally. Absent: respiratory distress, wheezes, rales, rhonchi, stridor Cardiovascular Exam: Present: regular rate, normal rhythm, normal heart sounds. Absent: systolic murmur, diastolic murmur, rubs, gallop, clicks GI/Abdominal exam: Present: soft, normal bowel sounds. Absent: distended, tenderness, guarding, rebound, rigid Extremities exam: Present: normal inspection, full ROM, normal capillary refill. Absent: tenderness, pedal edema, joint swelling, calf tenderness Back exam: Present: normal inspection. Absent: CVA tenderness (R), CVA tenderness (L) Neurological exam: Present: alert, oriented X3 Psychiatric exam: Present: normal affect, normal mood Skin exam: Present: warm, dry, intact, normal color. Absent: rash Course Vital Signs 02/10/25 02/11/25 22:03 02:18 Temperature 97.9 F 98.2 F Pulse Rate 74 71 Respiratory 16 18 Rate Blood Pressure 131/89 136/89 O2 Sat by Pulse 100 97 Oximetry Medical Decision Making - Medical Decision Making Was pt. sent in by a medical professional or institution (, PA, CLAIMS ADMINISTRATOR, urgent care, hospital, or snf...) When possible be specific @ -No Did you speak to anyone other than the patient for history (EMS, parent, family, police, friend...)? What history was obtained from this source @ -No Did you review nursing and triage notes (agree or disagree)? Why? @ -I reviewed and agree with nursing and triage notes Were old charts reviewed (outside hosp., previous admission, EMS record, old EKG, old radiological studies, urgent care reports/EKG's, snf records)? Report findings @ -No old charts were reviewed Differential Diagnosis (chest pain, altered mental status, abdominal pain women, abdominal pain men, vaginal bleeding, weakness, fever, dyspnea, syncope, headache, dizziness, GI bleed, back pain, seizure, CVA, palpatations, mental health, musculoskeletal)? @ -Differential Headache: Migraine, tension, cluster, carbon monoxide, central venous thrombosis, pension karma temporal arteritis, acute closure glaucoma, intercranial hemorrhage, mastoiditis, sinusitis, head injury, this is not meant to be an all-inclusive list. EKG interpreted by me (3pts min.). @ -None X-rays interpreted by me (1pt min.). @ -None done CT interpreted by me (1pt min.). @ -None done U/S interpreted by me (1pt. min.). @ -None done What testing was considered but not performed or refused? (CT, X-rays, U/S, labs)? Why? @ -None What meds were considered but not given or refused? Why? @ -None Did you discuss the management of the patient with other professionals (professionals i.e. , PA, CLAIMS ADMINISTRATOR, lab, RT, psych nurse, social work program coordinator, diversity manager, teacher, aeronautical engineering officer, rehabilitation caseworker)? Give summary @ -No Was smoking cessation discussed for >3mins.? @ -No Was critical care preformed (if so, how long)? @ -No Were there social determinants of health that impacted care today? How? (Homelessness, low income, unemployed, alcoholism, drug addiction, transportation, low edu. Level, literacy, decrease access to med. care, residential, rehab)? @ -No Was there de-escalation of care discussed even if they declined (Discuss DNR or withdrawal of care, Hospice)? DNR status @ -No What co-morbidities impacted this encounter? (DM, HTN, Smoking, COPD, CAD, Cancer, CVA, ARF, Chemo, Hep., AIDS, mental health diagnosis, sleep apnea, morbid obesity)? @ -None Was patient admitted / discharged? Hospital course, mention meds given and route, prescriptions, significant lab abnormalities, going to OR and other pertinent info. @ -Discharge. Patient presents emergency department for evaluation of headache and urinary symptoms. Laboratory studies obtained revealing no significant leukocytosis, hemoglobin stable; CMP is nonactionable UA shows no evidence of infectious process. Patient was provided medication for pain control in the emergency department. She does report significant improvement in her symptoms. Patient will be discharged home advised follow-up with her primary care provider. She is understanding agreeable plan. Patient stable at time of discharge. Case discussed with Dr. Malone Undiagnosed new problem with uncertain prognosis? @ -No Drug Therapy requiring intensive monitoring for toxicity (Heparin, Nitro, Insulin, Cardizem)? @ -No Were any procedures done? @ -No Diagnosis/symptom? @ -Migraine Acute, or Chronic, or Acute on Chronic? @ -Acute Uncomplicated (without systemic symptoms) or Complicated (systemic symptoms)? @ -Uncomplicated Side effects of treatment? @ -No Exacerbation, Progression, or Severe Exacerbation? @ -No Poses a threat to life or bodily function? How? (Chest pain, [place], [place], pneumonia, PE, COPD, DKA, ARF, appy, cholecystitis, CVA, Diverticulitis, Homicidal, Suicidal, threat to staff... and all critical care pts) @ -No - Lab Data Result diagrams: 02/10/25 22:49 02/10/25 22:49 Lab Results 02/10/25 02/10/25 02/10/25 Range/Units 22:49 22:49 22:49 WBC 9.60 (4.50-10.00) 10*3/uL RBC 4.23 (4.10-5.20) 10*6/uL Hgb 13.4 (12.0-15.0) g/dL Hct 38.9 (37.2-46.3) % MCV 92.0 (80.0-97.0) fL MCH 31.7 (27.0-32.0) pg MCHC 34.4 (32.0-37.0) g/dL Plt Count 326 (140-440) 10*3/uL MPV 9.9 (9.5-12.2) fL Immature Gran % (Auto) 0.3 % Neutrophils % 41.2 % Lymphocytes % 48.4 % Monocytes % 7.4 % Eosinophils % 1.9 % Basophils % 0.8 % Immature Gran # 0.03 (0.00-0.04) 10*3/uL Neutrophils # 3.95 (1.80-7.70) 10*3/uL Lymphocytes # 4.65 (0.90-5.00) 10*3/uL Monocytes # 0.71 (0.20-1.00) 10*3/uL Eosinophils # 0.18 (0.04-0.35) 10*3/uL Basophils # 0.08 (0.00-0.10) 10*3/uL Sodium 138 (137-145) mmol/L Potassium 4.4 (3.5-5.1) mmol/L Chloride 101 (98-107) mmol/L Carbon Dioxide 27 (22-30) mmol/L Anion Gap 10 mmol/L BUN 10 (7-17) mg/dL Creatinine 0.70 (0.52-1.04) mg/dL Est GFR (CKD-EPI)AfAm >90 (>60 ml/min/1.73 sqM) Est GFR (CKD-EPI)NonAf >90 (>60 ml/min/1.73 sqM) Glucose 86 (74-99) mg/dL Calcium 9.9 (8.4-10.2) mg/dL Total Bilirubin 0.4 (0.2-1.3) mg/dL AST 29 (14-36) U/L ALT 26 (4-34) U/L Alkaline Phosphatase 90 (38-126) U/L Total Protein 7.0 (6.3-8.2) g/dL Albumin 4.3 (3.5-5.0) g/dL Urine Color Colorless Urine Appearance Clear (Clear) Urine pH 6.5 (5.0-8.0) Ur Specific [place] 1.006 (1.001-1.035) Urine Protein Negative (Negative) Urine Glucose (UA) Negative (Negative) Urine Ketones Negative (Negative) Urine Blood Negative (Negative) Urine Nitrite Negative (Negative) Urine Bilirubin Negative (Negative) Urine Urobilinogen <2.0 (<2.0) mg/dL Ur Leukocyte Esterase Negative (Negative) Urine HCG, Qual (Not Detectd) 02/10/25 Range/Units 22:49 WBC (4.50-10.00) 10*3/uL RBC (4.10-5.20) 10*6/uL Hgb (12.0-15.0) g/dL Hct (37.2-46.3) % MCV (80.0-97.0) fL MCH (27.0-32.0) pg MCHC (32.0-37.0) g/dL Plt Count (140-440) 10*3/uL MPV (9.5-12.2) fL Immature Gran % (Auto) % Neutrophils % % Lymphocytes % % Monocytes % % Eosinophils % % Basophils % % Immature Gran # (0.00-0.04) 10*3/uL Neutrophils # (1.80-7.70) 10*3/uL Lymphocytes # (0.90-5.00) 10*3/uL Monocytes # (0.20-1.00) 10*3/uL Eosinophils # (0.04-0.35) 10*3/uL Basophils # (0.00-0.10) 10*3/uL Sodium (137-145) mmol/L Potassium (3.5-5.1) mmol/L Chloride (98-107) mmol/L Carbon Dioxide (22-30) mmol/L Anion Gap mmol/L BUN (7-17) mg/dL Creatinine (0.52-1.04) mg/dL Est GFR (CKD-EPI)AfAm (>60 ml/min/1.73 sqM) Est GFR (CKD-EPI)NonAf (>60 ml/min/1.73 sqM) Glucose (74-99) mg/dL Calcium (8.4-10.2) mg/dL Total Bilirubin (0.2-1.3) mg/dL AST (14-36) U/L ALT (4-34) U/L Alkaline Phosphatase (38-126) U/L Total Protein (6.3-8.2) g/dL Albumin (3.5-5.0) g/dL Urine Color Urine Appearance (Clear) Urine pH (5.0-8.0) Ur Specific [place] (1.001-1.035) Urine Protein (Negative) Urine Glucose (UA) (Negative) Urine Ketones (Negative) Urine Blood (Negative) Urine Nitrite (Negative) Urine Bilirubin (Negative) Urine Urobilinogen (<2.0) mg/dL Ur Leukocyte Esterase (Negative) Urine HCG, Qual Not Detected (Not Detectd) Disposition Clinical Impression: Migraine Disposition: HOME SELF-CARE Condition: Stable Instructions (If sedation given, give patient instructions): Migraine Headache (ED) Additional Instructions: Please follow-up with your doctor. Return to the emergency department for new or worsening symptoms. Is patient prescribed a controlled substance at d/c from ED?: No Referrals: Donny Laurent MD [Primary Care Provider] - 1-2 days
[2025-02-10] MEDS: ONDANSETRON 4 MG/2 ML VIAL IVP STA (22:59)
[2025-02-10] MEDS: diphenhydrAMINE 50 MG/ML 1 ML VIAL IVP STA (23:00)
[2025-02-10] MEDS: HYDROmorphone 0.5 MG/0.5 ML SYRINGE IVP STA (23:02)
[2025-02-10] MEDS: KETOROLAC 15 MG/ML 1 ML VIAL IVP STA (23:05)
[2025-02-10] MEDS: SODIUM CHLORIDE 0.9% 1,000 ML IV ONE (23:06)
[2025-02-11 00:22] LABS: Basophils # (A) 0.08 10*3/uL (0.00-0.10); Basophils % (A) 0.8 %; Eosinophils # (A) 0.18 10*3/uL (0.04-0.35); Eosinophils % (A) 1.9 %; HCT 38.9 % (37.2-46.3); HGB 13.4 g/dL (12.0-15.0); Lymphocytes # (A) 4.65 10*3/uL (0.90-5.00); Lymphocytes % (A) 48.4 %; MCH 31.7 pg (27.0-32.0); MCHC 34.4 g/dL (32.0-37.0); MCV 92.0 fL (80.0-97.0); Monocytes # (A) 0.71 10*3/uL (0.20-1.00); Monocytes % (A) 7.4 %; Neutrophils # (A) 3.95 10*3/uL (1.80-7.70); Neutrophils % (A) 41.2 %; Platelet Count 326 10*3/uL (140-440); RBC 4.23 10*6/uL (4.10-5.20); RDW 12.6 % (11.5-14.5); WBC 9.60 10*3/uL (4.50-10.00)
[2025-02-11 00:29] LABS: ALT 26 U/L (4-34); AST 29 U/L (14-36); African American GFR (CKD) >90 (>60 ml/min/1.73 sqM); Albumin 4.3 g/dL (3.5-5.0); Alkaline Phosphatase 90 U/L (38-126); Anion Gap 10 mmol/L; Blood Urea Nitrogen 10 mg/dL (7-17); Calcium 9.9 mg/dL (8.4-10.2); Carbon Dioxide 27 mmol/L (22-30); Chloride 101 mmol/L (98-107); Glucose 86 mg/dL (74-99); Non-African American GFR(CKD) >90 (>60 ml/min/1.73 sqM); Potassium 4.4 mmol/L (3.5-5.1); Sodium 138 mmol/L (137-145); Total Protein 7.0 g/dL (6.3-8.2)
[2025-02-11 00:59] LABS: Bilirubin,Urine Negative (Negative); Blood,Urine Negative (Negative); Color,Urine Colorless; Glucose,Urine (UA) Negative (Negative); Ketones,Urine Negative (Negative); Leukocyte Esterase,Urine Negative (Negative); Nitrite,Urine Negative (Negative); PH, Urine 6.5 (5.0-8.0); Protein,Urine Negative (Negative); Specific Gravity,Urine 1.006 (1.001-1.035); Urobilinogen,Urine <2.0 mg/dL (<2.0)
[2025-02-11] MEDS: HYDROmorphone 0.5 MG/0.5 ML SYRINGE IVP STA (02:15)
[2025-02-11] MEDS: KETOROLAC 15 MG/ML 1 ML VIAL IVP STA (02:16)
[2025-02-11 02:24] VITALS: BP 136/89; PULSE 71; RESP 18; TEMP 98.2
== END 2025-02-11 02:24 | disposition home or self-care (01) ==
LOC: EC 21:45
DX: G43.909 Migraine, unspecified, not intractable, without status migrainosus (principal); F17.200 Nicotine dependence, unspecified, uncomplicated; Z88.0 Allergy status to penicillin; Z88.1 Allergy status to other antibiotic agents; Z88.2 Allergy status to sulfonamides; Z91.040 Latex allergy status; Z88.8 Allergy status to other drugs, medicaments and biological substances
CPT/HCPCS: 36415; 80053; 85025; 81003; 81025; 99283; 96374; 96375; 96361; 96376; J1200; J2405; J1885 ×2; J1171 ×2